=== PATIENT | female | born 1990 | race Caucasian/White ===

== ENCOUNTER 2019-10-24 06:05 | Inpatient (IN) | payer BC, SELFPAY ==
[2019-10-24] VITALS (63 sets, daily range): BP systolic 113–153; BP diastolic 43–90; PULSE 55–166; RESP 18; TEMP 36.5–37.2; O2SAT 97–100; BMI 37.4
--- NOTE | 2019-10-24 06:31 | PM.IMHP ---
H&P: HPI History of Present Illness Chief complaint: induction of labor Narrative: Ashleigh Sanabria is a 29 year old female para 4 para 3 with last menstrual period was 01/04/2019/ EDC of 10/31/2019/presents at 39 weeks gestation for induction of labor. has been uncomplicated. Has favorable cervix. Review of Systems Review of Systems: All systems reviewed & are unremarkable except as noted in HPI and below PMFSH Family History Family History Sibling Diabetes mellitus Grandparent Heart disease Social History Social History Substance use: never Spiritual care concerns: No Meds Home Medications and Allergies Home Medications Medication Instructions Recorded Confirmed Type PNV cmb#95-ferrous fumarate-FA 1 tablet PO DAILY 10/01/19 10/01/19 History [] ferrous sulfate 325 mg PO DAILY 10/01/19 10/01/19 History fluoxetine 40 mg PO DAILY 10/01/19 10/01/19 History Allergies Allergy/AdvReac Type Severity Reaction Status Date / Time No Known Allergies Allergy Verified 01/01/18 12:30 Vital Signs Vital Signs - 24 hr 10/24/19 06:22 Pulse Rate 71 Blood Pressure 138/85 Exam Const: General: no acute distress Eyes: General: appearance normal, both eyes and all related structures Neck: Neck: supple and no JVD Thyroid: thyroid normal Resp: Effort & Inspection: normal respiratory effort Auscultation: clear to auscultation bilaterally Cardio: Rate: regular rate Rhythm: regular rhythm GI: Inspection: non-distended GI Palp: Yes Soft to palpation, No Tenderness to palpation present (GI) and No Guarding due to palpation present (GI) Auscultation: normal bowel sounds : External Female Exam: normal external appearance Speculum Exam - Cervix: Cervical os open (cx 3/60/-2 fhts ok) Skin: General skin exam: no rashes or lesions noted Extrem: General: normal to inspection and no edema Psych: Mental Status: mental status grossly normal Affect: normal affect Assessment and Plan Additional Plan Impression: Term with favorable cervix Plan,: Medical induction labor/spontaneous vaginal delivery is expected/ she has an epidural candidate
--- NOTE | 2019-10-24 06:35 | LDADM ---
This patient, Ashleigh Sanabria, was admitted to Labor/Delivery/Recovery 107 on 10/24/19 at 06:05. Plans for labor, pain management and were discussed with patient. Patient/family oriented to hospital policies and general routines including ID bracelet, bed and alarms, visiting hours, pain management, procedures, bathroom and other care routines, personal items, smoking policy, room service/diet and guest tray routines, security routines, call light, and visiting hours. Patient/Family are encouraged to report perceived risks to care and to ask questions if they do not understand what they are told or what they should do. See OBIX for further documentation.
[2019-10-24 06:56] LABS: Basophils Percent Auto 0.3 % (0.2-1.2); Eosinophils Absolute Auto 0.1 K/mm3 (0-0.3); Eosinophils Percent Auto 0.7 % (0-4.4); Hematocrit 36.6 % (37.0-47.0); Hemoglobin 11.8 g/dL (12.0-15.0); Immature Granulocyte Absolute 0.09 K/mm3 (0.00-0.031); Lymphocytes Absolute Auto 1.89 K/mm3 (0.9-3.2); Lymphocytes Percent Auto 20.1 % (18.3-44.2); Mean Corpuscular HGB Conc 32.2 g/dl (32-36); Mean Corpuscular Hemoglobin 28.3 pg (26-34); Mean Corpuscular Volume 87.8 fl (80-100); Mean Platelet Volume 12.2 fl (7.4-10.4); Monocytes Absolute Auto 0.6 K/mm3 (0.1-0.6); Monocytes Percent Auto 6.4 % (2.6-8.5); Neutrophils Absolute Auto 6.7 K/mm3 (1.3-6.7); Neutrophils Percent Auto 71.5 % (45.5-73.1); Platelet Count Result 116 k/mm3 (150-375); Red Blood Count 4.17 M/mm3 (4.2-5.4); Red Cell Distribution Width 15.9 % (11.5-14.5); White Blood Count 9.4 K/mm3 (4.5-10.0)
[2019-10-24] MEDS: LACTATED RINGERS 1,000 ML 125 ML IV CONT ×2 (07:19→09:05)
[2019-10-24] MEDS: OXYTOCIN 30 UNITS/NS 500 ML 30 UNITS/500 ML BAG IV CONT (07:19)
--- NOTE | 2019-10-24 08:56 | WPDANESEPPF ---
Anes - Initial Pre Proc Eval Date/Time: 10/24/19 08:56 Surgeon: Socrates Jurado MD Pre Op Diagnosis: induction of labor Patient Data Age: 29 Gender: F Height: 1.7 m Weight: 108.5 kg Last Vital Signs Pulse 61 10/24/19 08:31 BP 140/90 10/24/19 08:31 Allergies Allergy/AdvReac Type Severity Reaction Status Date / Time No Known Allergies Allergy Verified 01/01/18 12:30 Home Medications Medication Instructions Recorded Confirmed Type PNV cmb#95-ferrous fumarate-FA 1 tablet PO DAILY 10/01/19 10/01/19 History [] ferrous sulfate 325 mg PO DAILY 10/01/19 10/01/19 History fluoxetine 40 mg PO DAILY 10/01/19 10/01/19 History Laboratory Tests 10/24/19 10/24/19 10/24/19 06:48 06:48 06:48 WBC 9.4 K/mm3 K/mm3 (4.5-10.0) RBC 4.17 M/mm3 L M/mm3 (4.2-5.4) Hgb 11.8 g/dL L g/dL (12.0-15.0) Hct 36.6 % L % (37.0-47.0) MCV 87.8 fl fl (80-100) MCH 28.3 pg pg (26-34) MCHC 32.2 g/dl g/dl (32-36) RDW 15.9 % H % (11.5-14.5) Plt Count 116 k/mm3 L k/mm3 (150-375) MPV 12.2 fl H fl (7.4-10.4) Immature Gran % (Auto) 1.0 % H % (0-0.5) Neut % (Auto) 71.5 % % (45.5-73.1) Lymph % (Auto) 20.1 % % (18.3-44.2) [place] % (Auto) 6.4 % % (2.6-8.5) Eos % (Auto) 0.7 % % (0-4.4) Baso % (Auto) 0.3 % % (0.2-1.2) Lymph # (Auto) 1.89 K/mm3 K/mm3 (0.9-3.2) [place] # (Auto) 0.6 K/mm3 K/mm3 (0.1-0.6) Eos # (Auto) 0.1 K/mm3 K/mm3 (0-0.3) Baso # (Auto) 0.0 K/mm3 K/mm3 (0.0-0.1) Abs Immat Gran (auto) 0.09 K/mm3 H K/mm3 (0.00-0.031) Absolute Neuts (auto) 6.7 K/mm3 K/mm3 (1.3-6.7) Absolute Nucleated RBC 0.0 K/mm3 K/mm3 (0.0-0.012) Nucleated RBC % 0.0 % % (0.0-0.2) RPR Pending Blood Type A Positive Antibody Screen Negative Patient hx anesthesia problems: none Family hx anesthesia problems: none [facility] Family History Family History Sibling Diabetes mellitus Grandparent Heart disease Social History Social History Substance use: never Spiritual care concerns: No Anes - Eval Final PreProcedure Day of Procedure 10/24/19 08:56 Patient weight: overweight Heart: regular rate and rhythm Lungs: clear to auscultation and normal air movement Airway: Mallampati scale class II Neurological: alert and oriented Last oral intake: >/= 8 hours ASA classification: II Emergent: no Anesthetic plan: proceed Anesthesia type and monitoring: regional epidural Informed Consent: The patient's anesthetic plan and its attendant risks and benefits were discussed with the patient/family/POA. Questions were solicited and answers provided to the satisfaction of the patient/family/POA.
--- NOTE | 2019-10-24 11:09 | PM.OBPRVD ---
OB - Delivery Note Procedure Delivery date: 10/24/19 Intrapartal events: None Induction method: AROM Delivery augmentation: pitocin Delivery monitor: external FHT Route of delivery: Episiotomy description: None Laceration description: None Specimen: No Estimated blood loss (mL): 57 Anesthesia type: Epidural Disposition: floor Baby Date of : 10/24/19 Time of : 11:02 Weeks of gestation at delivery: 39 Infant gender: Female presentation: vertex position: Right Occiput Anterior Placenta delivery description: Spontaneous cord vessel description: 3 Vessels score one minute: 8 score five minutes: 9
--- NOTE | 2019-10-24 11:10 | PM.DS ---
DS: Admitting Diagnosis Admitting Diagnosis Admitting Diagnosis: term DS: Summary Time Spent with Patient Time attestation: Total time spent providing and/or coordinating discharge services: Exam Const: General: no acute distress Eyes: General: appearance normal, both eyes and all related structures Neck: Neck: supple and no JVD Thyroid: thyroid normal Resp: Effort & Inspection: normal respiratory effort Auscultation: clear to auscultation bilaterally Cardio: Rate: regular rate Rhythm: regular rhythm GI: Inspection: non-distended GI Palp: Yes Soft to palpation, No Tenderness to palpation present (GI) and No Guarding due to palpation present (GI) Auscultation: normal bowel sounds : General: Yes bladder normal to palpation External Female Exam: normal external appearance Speculum Exam - Vagina: normal vaginal discharge and No vaginal bleeding Speculum Exam - Cervix: nontender Bimanual exam- vagina & uterus: bladder normal to palpation and No Cervical tenderness present OB/external & speculum: No vaginal bleeding Skin: General skin exam: no rashes or lesions noted Extrem: General: normal to inspection and no edema Psych: Mental Status: mental status grossly normal Affect: normal affect DS: Data Data Completed and Pending Labs on day of discharge: Labs from last 24 hours 10/24/19 10/24/19 10/24/19 06:48 06:48 06:48 WBC 9.4 RBC 4.17 L Hgb 11.8 L Hct 36.6 L MCV 87.8 MCH 28.3 MCHC 32.2 RDW 15.9 H Plt Count 116 L MPV 12.2 H Immature Gran % (Auto) 1.0 H Neut % (Auto) 71.5 Lymph % (Auto) 20.1 [place] % (Auto) 6.4 Eos % (Auto) 0.7 Baso % (Auto) 0.3 Lymph # (Auto) 1.89 [place] # (Auto) 0.6 Eos # (Auto) 0.1 Baso # (Auto) 0.0 Abs Immat Gran (auto) 0.09 H Absolute Neuts (auto) 6.7 Absolute Nucleated RBC 0.0 Nucleated RBC % 0.0 RPR Pending Blood Type A Positive Antibody Screen Negative Discharge Plan Discharge Attending physician on discharge: Faustino Reyna Discharging Clinician: Faustino Reyna Patient Disposition: Home, Self-Care Activity: may shower, no straining, may drive after 2 weeks and pelvic rest Diet: heart healthy Wound Care Instructions: follow printed instructions Patient Instructions: Antibiotic Form Stand Alone Forms: General Discharge Information Follow-up/Referrals: Faustino Reyna MD [Physician] - Discharge Medications: Continued fluoxetine 40 mg Capsule 40 mg PO DAILY RF: 0 ferrous sulfate 325 mg (65 mg iron) Tablet 325 mg PO DAILY RF: 0 PNV cmb#95-ferrous fumarate-FA [] 28 mg iron- 800 mcg Tablet 1 tablet PO DAILY RF: 0 Date of admission: 10/24/19 06:05 Primary Care Provider: Bri,Eli Admitting Provider: Socrates Jurado Attending physician on admission: Socrates Jurado
[2019-10-24] MEDS: OXYTOCIN 30 UNITS/NS 500 ML 30 UNITS/500 ML BAG 125 UNITS IV CONT (11:34)
[2019-10-24] MEDS: ACETAMINOPHEN 325 MG TABLET 650 MG PO (12:54)
--- NOTE | 2019-10-24 13:44 | PC.NURSE ---
Patient transferred to post room # 285 via ( ). Support person present. Oriented to unit, room, information board, rooming in, admission packet and security measures. Patient verbalizes understanding.
[2019-10-24] MEDS: IBUPROFEN 600 MG TABLET PO (16:20)
[2019-10-25] MEDS: IBUPROFEN 600 MG TABLET PO ×2 (03:21→11:44)
[2019-10-25] MEDS: ACETAMINOPHEN 325 MG TABLET 650 MG PO ×2 (03:22→11:45)
[2019-10-25 05:11] LABS: Hematocrit 31.9 % (37.0-47.0); Hemoglobin 10.5 g/dL (12.0-15.0)
--- NOTE | 2019-10-25 06:18 | P.PNOB_ITS ---
OB - PN: Subj Subjective Date/time seen: 10/25/19 06:18 Patient comments: no complaints and pain well controlled baby status: doing well and nursing well OB - PN: Obj Data Labs CBC & Chem 7: 10/25/19 04:48 Labs: Laboratory Results - last 24 hr 10/24/19 10/24/19 10/25/19 06:48 06:48 04:48 WBC 9.4 RBC 4.17 L Hgb 11.8 L 10.5 L Hct 36.6 L 31.9 L MCV 87.8 MCH 28.3 MCHC 32.2 RDW 15.9 H Plt Count 116 L MPV 12.2 H Immature Gran % (Auto) 1.0 H Neut % (Auto) 71.5 Lymph % (Auto) 20.1 [place] % (Auto) 6.4 Eos % (Auto) 0.7 Baso % (Auto) 0.3 Lymph # (Auto) 1.89 [place] # (Auto) 0.6 Eos # (Auto) 0.1 Baso # (Auto) 0.0 Abs Immat Gran (auto) 0.09 H Absolute Neuts (auto) 6.7 Absolute Nucleated RBC 0.0 Nucleated RBC % 0.0 Blood Type A Positive Antibody Screen Negative OB - PN A/P Plan day: 1 Plan: routine care, discharge home and follow up 6 weeks Time Spent With Patient Time: Total time spent is greater than 50% in coordination of care (as documented) at patient's floor/unit and/or counseling patient: Time with patient: less than 15 minutes Review of Systems Review of Systems: All systems reviewed & are unremarkable except as noted in HPI and below Exam Const: General: no acute distress Eyes: General: appearance normal, both eyes and all related structures Neck: Neck: supple and no JVD Thyroid: thyroid normal Resp: Effort & Inspection: normal respiratory effort Auscultation: clear to auscultation bilaterally Cardio: Rate: regular rate Rhythm: regular rhythm GI: Inspection: non-distended GI Palp: Yes Soft to palpation, No Tenderness to palpation present (GI) and No Guarding due to palpation present (GI) Auscultation: normal bowel sounds : General: Yes bladder normal to palpation External Female Exam: normal external appearance Speculum Exam - Vagina: normal vaginal discharge and No vaginal bleeding Speculum Exam - Cervix: nontender Bimanual exam- vagina & uterus: bladder normal to palpation and No Cervical tenderness present OB/external & speculum: No vaginal bleeding Skin: General skin exam: no rashes or lesions noted Extrem: General: normal to inspection and no edema Psych: Mental Status: mental status grossly normal Affect: normal affect
[2019-10-25 07:55] VITALS: BP 119/79; PULSE 67; RESP 16; TEMP 36.5; O2SAT 100
[2019-10-25] MEDS: MULTIVIT/MIN/PREN/FOL AC/IRON TABLET 1 TAB PO (08:06)
[2019-10-25] MEDS: TETANUS,DIPHTHERIA,AC PERTUSSIS ADULT (0.5 ML) BOOSTRIX IM (08:07)
[2019-10-25 10:52] LABS: Rapid Plasma Reagin Non-Reactive (NonReactive)
--- NOTE | 2019-10-25 11:47 | PC.NURSE ---
Patient was given the opportunity to view the discharge video Mother & Baby Care, The First Two Weeks and to ask questions. Patient declined viewing the video and has been given the mother/baby guide for home reference.
[2019-10-28 09:54] VITALS: BP 124/86; PULSE 59; RESP 16; TEMP 37.2; O2SAT 98
== END 2019-10-25 13:49 | disposition home or self-care (01) | DRG 807 ==
LOC: ANHOB2 10-25 13:01 → ANHLDR 10-28 17:04 → ANHOB2 10-31 11:40
PROVIDERS: Admitting Provider Obstetrics & Gynecology; PCP Physician Assistant; Visit Provider Obstetrics & Gynecology
DX: O80 Encounter for full-term uncomplicated delivery (principal); Z37.0 Single live birth; Z3A.39 39 weeks gestation of pregnancy
CPT/HCPCS: 36415; 85014; 85018; 85025; 86592; 86850; 86900; 86901; 90715; 99199; A9270; J2590; J2795; J7120

== ENCOUNTER 2019-10-31 17:04 | Outpatient (CLI) | payer BC, SELFPAY ==
[2019-10-31 17:15] VITALS: BP 146/88; PULSE 84
--- NOTE | 2019-10-31 17:37 | PC.NURSE ---
Dr Elziondo notified of Adm c/o headache. Have Anesthesia evaluate patient for headache. [facility] labs.
--- NOTE | 2019-10-31 17:40 | PC.NURSE ---
Anesthesia notified of need for consult for headache. Will be over to evaluate.
[2019-10-31 17:45] VITALS: BP 139/91; RESP 18
--- NOTE | 2019-10-31 17:45 | PC.NURSE ---
Kurt Puga here to assess patient, feels that she does not need a blood patch at this time.
[2019-10-31 18:04] LABS: Basophils Absolute Auto 0.1 K/mm3 (0.0-0.1); Basophils Percent Auto 0.7 % (0.2-1.2); Eosinophils Absolute Auto 0.1 K/mm3 (0-0.3); Eosinophils Percent Auto 1.3 % (0-4.4); Immature Granulocyte Absolute 0.06 K/mm3 (0.00-0.031); Immature Granulocyte Percent A 0.7 % (0-0.5); Lymphocytes Absolute Auto 2.48 K/mm3 (0.9-3.2); Lymphocytes Percent Auto 29.7 % (18.3-44.2); Mean Corpuscular HGB Conc 32.5 g/dl (32-36); Mean Corpuscular Hemoglobin 28.4 pg (26-34); Mean Corpuscular Volume 87.5 fl (80-100); Mean Platelet Volume 11.3 fl (7.4-10.4); Monocytes Absolute Auto 0.6 K/mm3 (0.1-0.6); Monocytes Percent Auto 7.3 % (2.6-8.5); Neutrophils Percent Auto 60.3 % (45.5-73.1); Platelet Count Result 221 k/mm3 (150-375); Red Blood Count 4.57 M/mm3 (4.2-5.4); White Blood Count 8.4 K/mm3 (4.5-10.0)
[2019-10-31 18:16] LABS: Alanine Aminotransferase 26 U/L (4-35); Albumin Level 3.7 g/dL (3.5-5.1); Alkaline Phosphatase 113 U/L (38-126); Anion Gap 11.6 mmol/L (7-16); Aspartate Amino Transferase 25 U/L (14-36); Bilirubin,Total 0.2 mg/dL (0.2-1.3); Blood Urea Nitrogen 16 mg/dL (7-17); Calcium 8.6 mg/dL (8.4-10.2); Carbon Dioxide 25 mmol/L (22-30); Chloride 106 mmol/L (98-107); Estimated Glomerular Filt Rate > 60; Glucose 85 mg/dL (65-105); Potassium 3.6 mmol/L (3.4-5.0); Sodium 139 mmol/L (137-145); Uric Acid 6.9 mg/dL (2.5-7.5)
== END 2019-10-31 18:38 | disposition home or self-care (01) ==
LOC: ANHOBOP 17:11 → ANHLDR 17:13 → ANHOBPP 11-14 06:35
PROVIDERS: PCP Physician Assistant; Visit Provider Obstetrics & Gynecology
DX: O89.4 Spinal and epidural anesthesia-induced headache during the puerperium (principal)
CPT/HCPCS: 36415; 80053; 84550; 85025; 99199

== ENCOUNTER 2021-01-07 04:47 | Inpatient (IN) | payer BC, OTHER, SELFPAY ==
[2021-01-07] VITALS (102 sets, daily range): BP systolic 87–130; BP diastolic 58–80; PULSE 53–161; RESP 16–18; TEMP 36.3–37; O2SAT 80–100; BMI 37.3
--- OUTSIDE RECORDS SUMMARY | 2021-01-07 05:54 | XMS_ITS ---
:1990 Author Care Team Providers Name Role Phone CECE FERNANDES MD C.O.D. Clerk [phone] Allergies Code Code System Name Reaction Severity Status Onset NKDA ? Medications Name Status Start Date Stop Date ? ? Afluria Quad [id number] (PF) 60 mcg (15 mcg x 4)/0.5 mL IM syring e Completed ? 07/24/2018 ADM 0.5ML IM UTD albuterol sulfate HFA 90 mcg/actuation aerosol inhaler Active ? Not available INHALE 2 PUFFS PO Q 6 H PRF ASTHMA amoxicillin 875 mg tablet Completed ? 2016 TK 1 T PO Q 12 H amoxicillin 875 mg-potassium clavulanate 125 mg tablet Completed ? 05/15/2020 TK 1 T PO Q 12 H azithromycin 250 mg tablet Completed ? 07/24 benzonatate 200 mg capsule Completed ? 05/15 TK 1 C PO TID PRN citalopram 20 mg tablet Completed ? 07/25/19 19 TAKE 1 TABLET EVERY DAY cyclobenzaprine 5 mg tablet Unknown ? Not available TK 1 T PO TID PRN pt states she didnt think it was helping Diclegis 10 mg-10 mg tablet,delayed release Completed ? 07/24/2018 TK 2 TO 4 TS PO QD UTD ON PATIENT HANDOUT ferrous sulfate 325 mg (65 mg iron) tablet Completed ? 05/15/2020 TK 1 T PO D Flucelvax Quad (PF) 60 mcg (15 mcg x 4)/0.5 mL IM syri nge Completed ? 05/15/2020 ADM 0.5ML IM UTD fluoxetine 20 mg tablet Completed ? 07/25/19 19 TK 1 T PO QD fluoxetine 40 mg capsule Active ? Not michelle ilable TK ONE C PO QD
[2021-01-07] MEDS: LACTATED RINGERS 1,000 ML 999 ML IV CONT ×2 (06:14→06:41)
--- NOTE | 2021-01-07 06:15 | LDADM ---
This patient, Ashleigh Sanabria, was admitted to Labor/Delivery/Recovery 105 on 01/07/21 at 04:47. Plans for labor, pain management and were discussed with patient. Patient/family oriented to hospital policies and general routines including ID bracelet, bed and alarms, visiting hours, pain management, procedures, bathroom and other care routines, personal items, smoking policy, room service/diet and guest tray routines, security routines, and visiting hours. Patient/Family are encouraged to report perceived risks to care and to ask questions if they do not understand what they are told or what they should do. See OBIX for further documentation.
[2021-01-07 06:43] LABS: Basophils Percent Auto 0.4 % (0.2-1.2); Eosinophils Absolute Auto 0.1 K/mm3 (0-0.3); Eosinophils Percent Auto 0.6 % (0-4.4); Hematocrit 35.3 % (37.0-47.0); Hemoglobin 10.9 g/dL (12.0-15.0); Immature Platelet Fraction Pct 9.9 % (0.9-11.2); Lymphocytes Absolute Auto 2.22 K/mm3 (0.9-3.2); Lymphocytes Percent Auto 21.9 % (18.3-44.2); Mean Corpuscular HGB Conc 30.9 g/dl (32-36); Mean Corpuscular Hemoglobin 26.5 pg (26-34); Mean Corpuscular Volume 85.9 fl (80-100); Mean Platelet Volume 11.8 fl (7.4-10.4); Monocytes Absolute Auto 0.8 K/mm3 (0.1-0.6); Monocytes Percent Auto 7.7 % (2.6-8.5); Neutrophils Percent Auto 68.4 % (45.5-73.1); Platelet Count Result 141 k/mm3 (150-375); Red Blood Count 4.11 M/mm3 (4.2-5.4); White Blood Count 10.2 K/mm3 (4.5-10.0)
[2021-01-07 07:06] LABS: Rapid Plasma Reagin Non-Reactive (NonReactive)
--- NOTE | 2021-01-07 08:35 | PM.IMHP ---
H&P: HPI History of Present Illness Date/Time: 01/07/21 08:35 30 y/o at 38 2/7 weeks here with contractions. Labor was diagnosed. She is now comfortable with an epidural. GBS neg. Also, she desires permanent contraception with bilateral tubal ligation. Chief Complaint: Contractions Review of Systems Review of Systems: All systems reviewed & are unremarkable except as noted in HPI and below PMFSH Past Medical History Medical History Anxiety Asthma Family History Family History Sibling Diabetes mellitus Grandparent Heart disease Social History Social History Smoking status: Never smoker Second hand tobacco smoke exposure: No Substance use: never Spiritual care concerns: No Meds Home Medications and Allergies Home Medications Medication Instructions Recorded Confirmed Type PNV cmb#95-ferrous fumarate-FA 1 tablet PO DAILY 10/01/19 01/07/21 History [] fluoxetine 40 mg PO DAILY 10/01/19 01/07/21 History Allergies Allergy/AdvReac Type Severity Reaction Status Date / Time No Known Allergies Allergy Verified 01/01/18 12:30 Vital Signs Vital Signs - 24 hr 01/07/21 06:41 01/07/21 06:43 01/07/21 06:46 Temperature Pulse Rate 75 73 77 Blood Pressure 127/79 125/79 123/77 Pulse Oximetry 01/07/21 06:48 01/07/21 06:51 01/07/21 06:53 Temperature Pulse Rate 67 76 71 Blood Pressure 123/78 117/72 118/79 Pulse Oximetry 01/07/21 06:56 01/07/21 06:57 01/07/21 06:58 Temperature 36.3 C L Pulse Rate 71 87 Blood Pressure 115/79 120/65 Pulse Oximetry 100 01/07/21 07:01 01/07/21 07:02 01/07/21 07:04 Temperature Pulse Rate 74 76 Blood Pressure 119/74 119/64 Pulse Oximetry 100 01/07/21 07:07 01/07/21 07:08 01/07/21 07:09 Temperature Pulse Rate 91 72 81 Blood Pressure 87/63 L 126/66 124/77 Pulse Oximetry 100 01/07/21 07:11 01/07/21 07:12 01/07/21 07:13 Temperature Pulse Rate 75 81 Blood Pressure 112/74 115/73 Pulse Oximetry 100 01/07/21 07:16 01/07/21 07:17 01/07/21 07:18 Temperature Pulse Rate 77 76 Blood Pressure 115/76 122/79 Pulse Oximetry 100 01/07/21 07:21 01/07/21 07:22 01/07/21 07:23 Temperature Pulse Rate 74 79 Blood Pressure 114/68 112/67 Pulse Oximetry 100 01/07/21 07:26 01/07/21 07:27 01/07/21 07:28 Temperature Pulse Rate 72 70 Blood Pressure 116/70 114/74 Pulse Oximetry 100 01/07/21 07:31 01/07/21 07:32 01/07/21 07:33 Temperature Pulse Rate 85 78 Blood Pressure 115/71 111/68 Pulse Oximetry 100 01/07/21 07:36 01/07/21 07:37 01/07/21 07:38 Temperature Pulse Rate 77 78 Blood Pressure 105/68 108/68 Pulse Oximetry 100 01/07/21 07:40 01/07/21 07:41 01/07/21 07:43 Temperature Pulse Rate 66 73 Blood Pressure 117/75 115/67 Pulse Oximetry 100 01/07/21 07:45 01/07/21 07:46 01/07/21 07:48 Temperature Pulse Rate 66 79 Blood Pressure 90/76 L 104/71 Pulse Oximetry 98 01/07/21 07:50 01/07/21 07:55 01/07/21 08:00 Temperature Pulse Rate Blood Pressure Pulse Oximetry 99 99 100 01/07/21 08:01 01/07/21 08:05 01/07/21 08:10 Temperature Pulse Rate 84 Blood Pressure 112/58 L Pulse Oximetry 99 100 01/07/21 08:15 01/07/21 08:16 01/07/21 08:20 Temperature Pulse Rate 72 Blood Pressure 104/68 Pulse Oximetry 97 99 01/07/21 08:25 01/07/21 08:30 01/07/21 08:32 Temperature Pulse Rate 76 Blood Pressure 105/65 Pulse Oximetry 98 99 01/07/21 08:35 Temperature Pulse Rate Blood Pressure Pulse Oximetry 100 Exam Const: Orientation/consciousness: patient oriented x3 Other: Well-developed, well-nourished female in no acute distress. Neck: Thyroid: thyroid normal Lymphatic: no lymphade
[2021-01-07] MEDS: LACTATED RINGERS 1,000 ML 125 ML IV CONT (08:57)
[2021-01-07] MEDS: OXYTOCIN 30 UNITS/NS 500 ML 30 UNITS/500 ML BAG 999 UNITS IV CONT (09:52)
--- NOTE | 2021-01-07 10:01 | PM.OBPRVD ---
OB - Delivery Note Procedure Delivery date: 01/07/21 Procedure: Induction method: none Delivery monitor: external FHT and external uterine Route of delivery: Laceration Description: None Specimen: Yes (cord blood) Quantitative Blood Loss (ml): 85 Anesthesia type: Epidural Disposition: PACU Complications: None Narrative: 30 y/o at 38 2/7 weeks gestation who presented to the hospital with complaint of contractions. Labor was diagnosed. She received an epidural for pain control. Amniotomy was performed with return of clear fluid. Her labor progressed and her cervix dilated completely. She pushed with good effort and delivered the infant's head to the perineum, followed by the body. The nose and mouth were bulb suctioned. After a delay, the cord was clamped and cut. The was handed off the field. Cord blood was collected. The placenta delivered spontaneously and was grossly normal in appearance. The usual 3 vessel cord was noted. The perineum was intact. Needle and instrument counts were correct. The patient was taken to recovery room in stable condition. The went to the nursery in stable condition. I was present and scrubbed for the entire delivery. [place] Baby Date of : 01/07/21 Time of : 09:48 Weeks of gestation at delivery: 38 gender: Female Weight (pounds): 8 presentation: vertex position: Right Occiput Anterior Placenta delivery description: Spontaneous and Normal Configuration cord vessel description: 3 Vessels and Delayed Cord Clamping score one minute: 8 score five minutes: 9
--- NOTE | 2021-01-07 10:05 | PM.OBDSVD ---
DS: Admitting Diagnosis Discharge Date 01/08/21 Admitting Diagnosis IUP at 38 2/7 weeks Labor DS: Discharge Diagnosis Discharge Diagnosis (1) (normal spontaneous vaginal delivery): Code(s): O80 - Encounter for full-term uncomplicated delivery Status: Acute (2) Unwanted fertility: Code(s): Z30.09 - Encounter for other general counseling and advice on contraception Status: Acute OB - DS: Summary OB Procedures : None OB Procedures Intrapartum: Spontaneous Vag Delivery OB Procedures: : None DS: Data Data Completed and Pending Labs on day of discharge: Labs from last 24 hours 01/07/21 01/07/21 01/07/21 06:16 06:16 06:16 WBC 10.2 H RBC 4.11 L Hgb 10.9 L Hct 35.3 L MCV 85.9 MCH 26.5 MCHC 30.9 L RDW 14.0 Plt Count 141 L MPV 11.8 H Immature Gran % (Auto) 1.0 H Neut % (Auto) 68.4 Lymph % (Auto) 21.9 [place] % (Auto) 7.7 Eos % (Auto) 0.6 Baso % (Auto) 0.4 Lymph # (Auto) 2.22 [place] # (Auto) 0.8 H Eos # (Auto) 0.1 Baso # (Auto) 0.0 Abs Immat Gran (auto) 0.10 H Absolute Neuts (auto) 7.0 H Absolute Nucleated RBC 0.0 Nucleated RBC % 0.0 % Immature Plt Fraction 9.9 RPR Non-reactive Blood Type A Positive Antibody Screen Negative Discharge Plan Discharge Attending physician on discharge: Socrates Jurado Discharging Clinician: Socrates Jurado Patient Disposition: Home, Self-Care Activity: as tolerated and pelvic rest Diet: regular Wound Care Instructions: incision open to air Discharge Instructions: Call or return if temperature above 100.4? F, increased abdominal pain, increased vaginal bleeding or any new problems. Education: Mom and Baby Guide Given to: Mother Follow-Up: Call your delivering provider's office for an appointment to be seen in: 6 Weeks Mom and baby should come to the [facility] for the follow-up appointment. Appointment Date/Time: January 09, 2021 at 9:00 am What to expect at your follow-up visit: Physical Assessment Call [phone] if you are unable to keep your appointment time. BREAST CARE: * Wear a snug supportive bra. * For engorgement discomfort: Bottle Feeding: * May apply ice packs PERINEAL CARE: * Until bleeding stops, use your jason bottle after urinating * Change your pad frequently throughout the day * No tub baths until seen by your physician - You may shower ACTIVITY: * Rest as much as possible. * Do not exercise or lift anything heavier than your baby (such as laundry or other children.) * Avoid stairs or driving as much as possible. * Do not put anything into the vagina. No douching, tampons, or sexual activity until seen by physician. NOTIFY PHYSICIAN IF YOU HAVE ANY QUESTIONS OR IF ANY OF THE FOLLOWING SYMPTOMS OCCUR: * If your stitches become red, swollen, or more painful than what you have experienced in the hospital. * If your vaginal bleeding becomes foul smelling. * If your vaginal bleeding becomes more heavy than a period or if your bleeding changes from pink to bright red. However, you may pass an occasional walnut-sized clot once or twice for the first week . * If you experience a sharp, shooting pain in you calves. * If you discover a hard, reddened area on your breast or if you experience flu-like symptoms. DIET: * Eat regular, well-balanced meals. * Drink plenty of fluids daily. Stand Alone Forms: General Discharge Information Follow-up/Referrals: Socrates Jurado MD [Physician] - 6 Weeks Discharge Medications: New ibuprofen 600 mg tablet 600 mg PO Q6H PRN (Reason: cramps) Qty: 30 RF: 0 hydrocodone-acetaminophen 5-325 mg tablet 1 - 2 tablet PO Q6H PRN (Reason: pain) Qty: 30 RF: 0 Continued fluoxetine 40 mg Capsule 40 mg PO DAILY RF: 0 PNV cmb#95-ferrous fumarate-FA [] 28 mg iron- 800 mcg Tablet 1 tablet PO DAILY RF: 0 Date
[2021-01-07] MEDS: OXYTOCIN 30 UNITS/NS 500 ML 30 UNITS/500 ML BAG 125 UNITS IV CONT (10:19)
[2021-01-07] MEDS: IBUPROFEN 600 MG TABLET PO ×2 (11:50→21:59)
--- NOTE | 2021-01-07 19:21 | PC.NURSE ---
expedition supervisor Criselda notified that this patient has canceled her tubal surgery tomorrow and that the doctor is already aware.
--- NOTE | 2021-01-07 19:30 | PC.NURSE ---
1330 Pt admitted to room 292 per wheelchair from labor and delivery after spontaneous vaginal delivery of viable female infant at [address] Jurado. Mother is a and is choosing to bottle feed infant. /FOB present; they were oriented to room, staffing and procedures; admission folder reviewed. Pt's VSS and assessment WNL.
--- NOTE | 2021-01-07 19:33 | PC.NURSE ---
Epidural catheter removed at 1932.
[2021-01-07] MEDS: FLUoxetine HCL 20 MG CAPSULE 40 MG PO (21:34)
[2021-01-08 04:00] VITALS: BP 112/67; PULSE 70; RESP 16; TEMP 36.6; O2SAT 99
[2021-01-08] MEDS: IBUPROFEN 600 MG TABLET PO (04:24)
[2021-01-08 04:58] LABS: Hemoglobin 10.6 g/dL (12.0-15.0)
[2021-01-08 07:40] VITALS: BP 118/71; PULSE 72; RESP 18; TEMP 36.6; O2SAT 99
[2021-01-11 09:25] VITALS: BP 132/71; PULSE 69; RESP 20; TEMP 36.9; O2SAT 100
== END 2021-01-08 12:00 | disposition home or self-care (01) | DRG 807 ==
LOC: ANHLDR 11:52 → ANHOB2 01-08 06:27 → ANHLDR 01-08 15:13 → ANHOB2 01-08 15:13
PROVIDERS: Admitting Provider Obstetrics & Gynecology; PCP Physician Assistant; Visit Provider Student in an Organized Health Care Education/Training Program
DX: O99.344 Other mental disorders complicating childbirth (principal); Z37.0 Single live birth; Z3A.38 38 weeks gestation of pregnancy; Z23 Encounter for immunization; F41.9 Anxiety disorder, unspecified; O99.52 Diseases of the respiratory system complicating childbirth; J45.909 Unspecified asthma, uncomplicated
CPT/HCPCS: 36415; 85014; 85018; 85025; 85055; 86592; 86850; 86900; 86901; 90471; 90653; A9270; G0008; J2590; J2795; J7120

== ENCOUNTER 2021-03-10 01:45 | Day surgery (SDC) | payer BC, OTHER, SELFPAY ==
[2021-02-24 12:28] VITALS: BMI 33.8
--- NOTE | 2021-02-24 12:36 | PC.NURSE ---
Report to the Outpatient Waiting Room, entrance under the green pavilion located off [facility], at time 1300 on date 03/10/21. OR Time: 1500. - You and your visitor will be asked a series of questions to screen for COVID 19 for your protection. - A mask is required within the hospital. - Only one visitor is allowed at this time. Patient visitors will be guided where to wait when not with patient. Preoperative COVID Testing Requirements: No COVID Test needed if: (proof is required; if not received patient will have Rapid Test prior to entry) - Patient has received COVID Vaccine at least 14 days prior to procedure date or - Patient has positive COVID test result within last 90 days of surgery date. COVID Test needed if above criteria is not met If not COVID vaccinated a COVID test must be conducted within 72 hours of surgery and patient is asked to isolate self from time of testing until procedure. You will go to the [employer] [facility] for your COVID testing. The [employer] [facility] is located at the corner of [address] [facility]. You will only be called if COVID results are positive and your surgeon may reschedule your elective surgery date. Patients may have clear liquids (water, carbonated beverages, clear teas, apple juice) until 3 hours prior to surgery with a maximum of 20 ounces. - No food from midnight until time of surgery - Infants may have breast milk until 4 hours before surgery, infant formula 6 hours prior to surgery. - Children will be allowed to drink immediately following surgery. If applicable, please bring a bottle or sippy cup to assist with drinking. Juice, water, soda, and popsicles are readily available. For infants on formula, please bring formula the day of surgery. Pacifiers are allowed. Take the following medications with a SIP of water the morning of surgery: FLUOXETINE Medications to discontinue per physician: VITAMINS/SUPPLEMENTS Date to take last dose: 03/06/21 Please no make-up, nail maltese, hairspray, perfume, deodorant, or body powder the day of surgery. No jewelry (including any body piercings) or valuables the day of surgery, leave them at home. Please take a shower or bath the night before, or the morning of, surgery with an antibacterial soap. Wear comfortable, loose fitting clothing. Children are encouraged to wear pajamas. - Jewelry must be removed prior to entering the operating room. Rings and piercings that are not removed may be cut off. - The hospital will not accept responsibility for valuables. - Please leave all valuables, including medications, at home the day of surgery. If you are going home after surgery, a licensed straddle truck driver must drive you home. - NO public transportation without another adult. - We recommend that an adult stay with you for 24 hours following discharge. - We also recommend that you do not drive, make important decision, drink alcoholic beverages, or take any drugs that were not prescribed by your health care provider for at least 24 hours after your discharge time. For Pediatric surgeries, we recommend two adults accompany the child home (only one inside the building at this time). Follow any additional instructions given to you from your surgeon. Telephone instructions given to TRAVIS MCCAULEY and asked if any additional questions and then verbalized understanding. Patient advised to call surgeon office or pre surgery nurse liaison [phone] if any additional questions.
[2021-03-10] VITALS (16 sets, daily range): BP systolic 107–137; BP diastolic 67–91; PULSE 61–81; RESP 12–20; TEMP 36.2; O2SAT 95–100
[2021-03-10] MEDS: ACETAMINOPHEN 500 MG TABLET 1000 MG PO (10:46)
[2021-03-10] MEDS: LACTATED RINGERS 1,000 ML 30 ML IV CONT ×3 (10:50→15:30)
[2021-03-10] MEDS: KETOROLAC 15 MG/ML VIAL (*BKC) IV PUSH ×2 (10:55→13:46)
--- NOTE | 2021-03-10 10:59 | P.PNAN_ITS ---
Anes - Initial Pre Proc Eval Procedure: Operation Date: 03/10/21 15:00 Proposed Procedures p Laparoscopic Bilateral Tubal Sterilization with Fallopian Rings, - Socrates Jurado MD s Hysteroscopy, Dilation and Curettage with Nga Endometrial Ablation - Socrates Jurado MD Date/Time: 03/10/21 10:59 Surgeon: Socrates Jurado MD Pre Op Diagnosis: irregular bleeding, desires sterilization Patient Data Age: 30 Gender: F Height: 1.69 m Weight: 96.62 kg Allergies Allergy/AdvReac Type Severity Reaction Status Date / Time No Known Allergies Allergy Verified 03/10/21 10:45 Home Medications Medication Instructions Recorded Confirmed Type PNV cmb#95-ferrous fumarate-FA 1 tablet PO DAILY 10/01/19 03/10/21 History [] fluoxetine 40 mg PO DAILY 10/01/19 03/10/21 History cetirizine 10 mg PO DAILY 02/24/21 03/10/21 History Patient hx anesthesia problems: none Family hx anesthesia problems: none Results Review: All pre-operative results and documents have been reviewed as part of the pre-operative evaluation. [facility] Past Medical History Medical History Anxiety Asthma Family History Family History Sibling Diabetes mellitus Grandparent Heart disease Social History Social History Smoking status: Never smoker Second hand tobacco smoke exposure: No Alcohol intake: never Substance use: never Substance use type: does not use Living arrangements: with family Spiritual care concerns: No Anes - Eval Final PreProcedure Day of Procedure 03/10/21 10:59 Patient weight: obese Heart: regular rate and rhythm Lungs: clear to auscultation Airway: Mallampati scale class II Neurological: alert and oriented Last oral intake: >/= 8 hours ASA classification: II Emergent: no Anesthetic plan: proceed Anesthesia type and monitoring: general ETT and standard monitoring Results Review: All pre-operative results and documents have been reviewed as part of the pre-operative evaluation. Informed Consent: The patient's anesthetic plan and its attendant risks and benefits were discussed with the patient/family/POA. Questions were solicited and answers provided to the satisfaction of the patient/family/POA.
--- NOTE | 2021-03-10 12:13 | PM.IMHP ---
H&P: HPI History of Present Illness Date/Time: 03/10/21 12:13 30 y/o with heavy menses. She also desires permanent contraception. Chief Complaint: Here for surgery Review of Systems Review of Systems: All systems reviewed & are unremarkable except as noted in HPI and below PMFSH Past Medical History Medical History Anxiety Asthma Family History Family History Sibling Diabetes mellitus Grandparent Heart disease Social History Social History Smoking status: Never smoker Second hand tobacco smoke exposure: No Alcohol intake: never Substance use: never Substance use type: does not use Living arrangements: with family Spiritual care concerns: No Meds Home Medications and Allergies Home Medications Medication Instructions Recorded Confirmed Type PNV cmb#95-ferrous fumarate-FA 1 tablet PO DAILY 10/01/19 03/10/21 History [] fluoxetine 40 mg PO DAILY 10/01/19 03/10/21 History cetirizine 10 mg PO DAILY 02/24/21 03/10/21 History Allergies Allergy/AdvReac Type Severity Reaction Status Date / Time No Known Allergies Allergy Verified 03/10/21 10:45 Vital Signs Vital Signs - 24 hr 03/10/21 10:45 Temperature 36.2 C L Pulse Rate 63 Respiratory Rate 20 Blood Pressure 111/68 Pulse Oximetry 99 Exam Const: Orientation/consciousness: patient oriented x3 Other: Well-developed, well-nourished female in no acute distress. Neck: Thyroid: thyroid normal Lymphatic: no lymphadenopathy noted (in neck, axilla or inguinal nodes) Resp: Effort & Inspection: normal respiratory effort Auscultation: clear to auscultation bilaterally Cardio: Rate: regular rate Rhythm: regular rhythm Heart sounds: S1 normal heart sound present and S2 normal heart sound present GI: Other: ABD: Soft, nontender, nondistended. No guarding or rebound tenderness. No hepatosplenomegaly. : General: Yes no CVA tenderness Other: External genitalia: normal female hair distribution, without lesion. Urethral meatus: no lesion, non prolapsed. Bladder: no mass, nontender Vagina: well-estrogenized, without lesion or discharge. No cystocele or rectocele. Cervix: no lesion or discharge. Uterus: small, anteverted, freely mobile, nontender Adnexa: no mass or tenderness. Anus/perineum: no lesions, nontender Back/Spine/Pelvis: Back: no CVA tenderness Skin: General skin exam: normal color and no rashes or lesions noted Neuro: General: patient oriented x3 Extrem: Other: Extremities: nontender with no edema Psych: Mental Status: mental status grossly normal Affect: normal affect Assessment and Plan Assessment and plan (1) Menometrorrhagia: Code(s): N92.1 - Excessive and frequent menstruation with irregular cycle Status: Acute Assessment and Plan: A: Menometrorrhagia, desired sterility. P: She understands there are temporary methods of contraception available to her. She understands that there are nonsurgical options as well as surgical options. She understands that tubal ligation will render her permanently sterile. She understands that there is a failure rate associated with tubal ligation, as well as an inherent ectopic gestation risk. Furthermore, she understands risks of surgery to include risks of anesthesia, risks of pain, infection, bleeding, blood products, thromboembolic phenomena and damage to adjacent structures such as bowel, bladder, ureters, blood vessels and nerves. She understands all these risks and elects to proceed with surgery. She has received the ACOG pamphlet on surgical sterilization. She elects to go ahead with hysteroscopy, dilation and sharp curettage, endometrial ablation, and bilateral tubal ligation. (2) Unwanted fertility: Code(s): Z30.09 - Encounter for other general counselin
--- NOTE | 2021-03-10 12:15 | WPDHPUPDATE1 ---
History and Physical Update Update Date/Time: 03/10/21 12:15 History and Physical has been reviewed, including an updated exam of the patient. There are NO changes in the patient's condition. Risks, benefits, and alternatives have been discussed and questions answered. Patient agrees to proceed with procedure.
--- NOTE | 2021-03-10 13:48 | WPDANESEPPF ---
Anes - Initial Pre Proc Eval Procedure: Operation Date: 03/10/21 15:00 Proposed Procedures p Laparoscopic Bilateral Tubal Sterilization with Fallopian Rings, - Socrates Jurado MD s Hysteroscopy, Dilation and Curettage with Nga Endometrial Ablation - Socrates Jurado MD Date/Time: 03/10/21 13:48 Surgeon: Socrates Jurado MD Pre Op Diagnosis: irregular bleeding, desires sterilization Patient Data Age: 30 Gender: F Height: 1.69 m Weight: 95.3 kg Last Vital Signs Temp 36.2 C L 03/10/21 10:45 Pulse 63 03/10/21 10:45 Resp 20 03/10/21 10:45 BP 111/68 03/10/21 10:45 Pulse Ox 99 03/10/21 10:45 Allergies Allergy/AdvReac Type Severity Reaction Status Date / Time No Known Allergies Allergy Verified 03/10/21 10:45 Home Medications Medication Instructions Recorded Confirmed Type PNV cmb#95-ferrous fumarate-FA 1 tablet PO DAILY 10/01/19 03/10/21 History [] fluoxetine 40 mg PO DAILY 10/01/19 03/10/21 History cetirizine 10 mg PO DAILY 02/24/21 03/10/21 History hydrocodone-acetaminophen 1 - 2 tablet PO Q6H PRN #30 tablet 03/10/21 Rx Patient hx anesthesia problems: none Family hx anesthesia problems: none Results Review: All pre-operative results and documents have been reviewed as part of the pre-operative evaluation. [facility] Past Medical History Medical History Anxiety Asthma Family History Family History Sibling Diabetes mellitus Grandparent Heart disease Social History Social History Smoking status: Never smoker Second hand tobacco smoke exposure: No Alcohol intake: never Substance use: never Substance use type: does not use Living arrangements: with family Spiritual care concerns: No Anes - Eval Final PreProcedure Day of Procedure 03/10/21 13:48 Patient weight: obese Heart: regular rate and rhythm Lungs: clear to auscultation and normal air movement Airway: Mallampati scale class II Neurological: alert and oriented Last oral intake: >/= 8 hours ASA classification: II Emergent: no Anesthetic plan: proceed Anesthesia type and monitoring: general ETT and standard monitoring Results Review: All pre-operative results and documents have been reviewed as part of the pre-operative evaluation. Informed Consent: The patient's anesthetic plan and its attendant risks and benefits were discussed with the patient/family/POA. Questions were solicited and answers provided to the satisfaction of the patient/family/POA.
--- NOTE | 2021-03-10 13:52 | W.PM.PROC2 ---
Procedure Note - Detailed Date of Procedure 03/10/21 Pre-op Diagnosis irregular bleeding, desires sterilization Post-op Diagnosis same Procedure Performed Laparoscopic bilateral tubal ligation Hysteroscopy Dilation and sharp curettage Attempted endometrial ablation Surgeon Socrates Jurado MD Anesthesia general and local (1% lidocaine) Findings Normal-appearing RUQ anatomy, normal appendix, normal-appearing uterus, tubes, ovaries, anterior and posterior cul-de-sac. Uterus sounded to a depth of 9 cm with a cervical length of 3 cm. Endometrial cavity unremarkable. Both tubal ostia seen. Description of Procedure The patient was taken to the operating room where general endotracheal anesthesia was administered. She was prepared and draped in the usual sterile fashion in dorsal lithotomy position. The bladder was drained with a red rubber catheter. A sterile speculum was placed into the vagina. The anterior lip of the cervix was grasped with a single-tooth tenaculum. The acorn uterine manipulator was placed. The speculum was withdrawn. Gloves were changed and attention was turned the abdomen. An infraumbilical skin incision was made with a scalpel. The abdomen was tented and a 5mm bladeless trocar was advanced under direct laparoscopic visualization. Pneumoperitoneum was administered using carbon dioxide gas. A survey of the pelvis and abdomen revealed the findings noted above. A second skin incision was made in the midline above the symphysis pubis and an 8mm bladeless trocar was advanced under direct laparoscopic visualization. The fallopian tube on the right side was followed out to the fimbriated end for identification. It was then grasped in the midportion with the Falope ring applicator. The Falope ring was tented applied. A good loop of tube was noted to be distal to the ring. Hemostasis was excellent. The device was reloaded and the contralateral tube was similarly identified and ligated. An excellent application was noted here as well. A total of 6mL of 1% lidocaine was infiltrated into the serosa of the proximal tubes for postoperative anesthesia. The ports were withdrawn. The gas was allowed to escape. The skin incisions were reapproximated using interrupted subcuticular sutures of 4 0 Vicryl. Dermaflex was applied externally. Attention was then redirected to the vagina. The acorn manipulator was withdrawn. Ten mL of 1% lidocaine was administered in a paracervical block. The cervix was noted already to be dilated, easily accommodating an 8 mm dilator. Hysteroscopy was performed using sterile saline as a distention medium. Findings are as noted above. Sharp curettage was then performed, and endometrial curettings were collected on a Telfa pad and passed off to be sent to pathology. Finally, the the Nga device was advanced. Unfortunately, an adequate seal was unable to be obtained due to the dilation of the cervix. A second look with the hysteroscope confirmed no evidence of uterine perforation. We tried a double-toothed tenaculum to the posterior cervix, as well as vaseline gauze. Nonetheless, an adequate seal proved elusive. The procedure was terminated. The tenacula were removed. Hemostasis was excellent. Sponge, lap, needle and instrument counts were correct. The patient was awakened and taken to the recovery room in stable condition. I was present and scrubbed through the entire procedure. Implants Falope rings x 2 Estimated Blood Loss 30 Drains No Packing No Pathology yes (Endometrial curettings) Complications None Condition stable Disposition PACU
[2021-03-10] MEDS: fentaNYL CITRATE INJ (*CRX) 100 MCG/2 ML VIAL 25 MCG IV PUSH ×6 (14:14→15:02)
[2021-03-10] MEDS: ONDANSETRON INJ 4 MG/2 ML VIAL IV PUSH (14:30)
[2021-03-10] MEDS: diphenhydrAMINE HCl INJ 50 MG/ML VIAL 25 MG IV PUSH (14:35)
[2021-03-10] MEDS: SCOPOLAMINE 1.5 MG PATCH TRANSDERM (14:36)
[2021-03-10] MEDS: MEPERIDINE HCL INJ (*CRX) 50 MG/ML AMPUL 25 MG IV PUSH ×2 (15:22→15:45)
--- NOTE | 2021-03-10 16:02 | SUR.PHASEII ---
1602- Call to Dr. Man patient is complaining of pain rated at an 8 on numeric scale to abdomen and mid back area. Patient requesting pain medication at this time. Orders obtained from Dr. Man for 1MG dilaudid IVP every 5 minutes for pain with max dosing of 5MG dilaudid.
[2021-03-10] MEDS: HYDROmorphone HCL INJ (*CRX) 1 MG/ML SYR IV PUSH ×2 (16:07→16:18)
--- NOTE | 2021-03-10 18:00 | SUR.PHASEII ---
1800- Call to Mg Puga CRNA patient experiencing nausea at this time. Requested orders for anti emetic and received orders for 10MG IVP reglan once and to start patient on D5W.
[2021-03-10] MEDS: METOCLOPRAMIDE HCL INJ 10 MG/2 ML VIAL IV PUSH (18:07)
[2021-03-10] MEDS: DEXTROSE 5% 1,000 ML 1,000 ML 100 ML IV CONT (18:10)
== END 2021-03-10 18:53 | disposition home or self-care (01) ==
PROVIDERS: PCP Physician Assistant; Visit Provider Obstetrics & Gynecology
PROC: (CPT 58671; principal; 2021-03-10 15:00)
PROC: 0U5B8ZZ Destruction of Endometrium, Via Natural or Artificial Opening Endoscopic (ICD-10-PCS; CPT 58563; 2021-03-10 15:00)
DX: N92.1 Excessive and frequent menstruation with irregular cycle (principal); Z30.2 Encounter for sterilization; F41.9 Anxiety disorder, unspecified; E66.9 Obesity, unspecified; Z68.33 Body mass index [BMI] 33.0-33.9, adult
CPT/HCPCS: 58563; 58671; 88305; A4264; A9270; J0330; J1100; J1170; J1200; J1885; J2175; J2250; J2405; J2704; J2765; J3010; J7030; J7070; J7120

== ENCOUNTER 2021-03-27 22:49 | Emergency (ER) | payer BC, OTHER, SELFPAY ==
--- NOTE | ~2021-03-27 | CT_ITS ---
EXAMINATION: CT soft tissue neck w con DATE: 03/28/2021 05:30 INDICATION: Left facial swelling post recent tooth extraction. TECHNIQUE: Computed tomography (CT) of the neck was performed with 75 mL Omnipaque-350 intravenous co ntrast. Automated exposure control and iterative reconstruction technique were employed. The dose-dragan gth product was 463.32 mGy-cm. COMPARISON: None FINDINGS: There is prominent soft tissue swelling and subcutaneous stranding at the lower left face and submand ibular region centered around the site of the extracted left first mandibular molar. There is a some phlegmonous change overlying the lateral margin of the mandible at this location without an organized -appearing drainable abscess. Some additional inflammatory stranding deep to the thickened left platy sma. The contralateral right maxillary second molar has also been extracted. No maxillofacial fractur es. There is mucosal thickening in the right maxillary sinus which appears small with thickened scler otic devine likely sequela of chronic sinusitis. The wall of the right maxillary sinus is been resecte d. Remainder of the paranasal sinuses are unremarkable. Mastoid air cells and middle ear cavities are clear. Asymmetric mild relative enlargement of still normal-sized likely reactive left submandibular lymph nodes. Visualized airway is clear. No soft tissue polyarticular inflammatory stranding in the deep spaces of the neck. The thyroid, bilateral parotid and submandibular glands are normal. Visualiz ed portions of the apices of lungs are clear. Cervical spine is unremarkable. IMPRESSION: 1. Phlegmonous change without evident organized abscess in the soft tissues overlying the site of ext raction of the left maxillary first molar with prominent surrounding cellulitis/subcutaneous edema.9. Reviewed, dictated and finalized at location H. INE ACCOUNTANT IMPRESSION: 1. Phlegmonous change without evident organized abscess in the soft tissues ove rlying the site of extraction of the left maxillary first molar with prominent surrounding cellulitis/subcutaneous edema.9.
[2021-03-27 23:17] VITALS: BP 155/90; PULSE 89; RESP 20; TEMP 36.7; O2SAT 98
[2021-03-28 02:10] VITALS: BP 137/87; PULSE 71; RESP 18; O2SAT 100
--- NOTE | 2021-03-28 02:11 | PC.NURSE ---
Pt given ice pack for facial swelling/pain.
[2021-03-28 04:38] LABS: Basophils Absolute Auto 0.1 K/mm3 (0.0-0.1); Basophils Percent Auto 0.4 % (0.2-1.2); Eosinophils Absolute Auto 0.1 K/mm3 (0-0.3); Hematocrit 35.4 % (37.0-47.0); Hemoglobin 11.3 g/dL (12.0-15.0); Immature Granulocyte Absolute 0.06 K/mm3 (0.00-0.031); Immature Granulocyte Percent A 0.5 % (0-0.5); Lymphocytes Absolute Auto 1.37 K/mm3 (0.9-3.2); Lymphocytes Percent Auto 10.4 % (18.3-44.2); Mean Corpuscular HGB Conc 31.9 g/dl (32-36); Mean Corpuscular Hemoglobin 27.7 pg (26-34); Mean Corpuscular Volume 86.8 fl (80-100); Mean Platelet Volume 11.1 fl (7.4-10.4); Monocytes Percent Auto 7.8 % (2.6-8.5); Neutrophils Absolute Auto 10.5 K/mm3 (1.3-6.7); Neutrophils Percent Auto 79.9 % (45.5-73.1); Platelet Count Result 168 k/mm3 (150-375); Red Blood Count 4.08 M/mm3 (4.2-5.4); Red Cell Distribution Width 15.6 % (11.5-14.5); White Blood Count 13.1 K/mm3 (4.5-10.0)
[2021-03-28 04:46] LABS: Anion Gap 7 mmol/L (8-16); Blood Urea Nitrogen 14 mg/dL (7-17); Calcium 9.4 mg/dL (8.4-10.2); Carbon Dioxide 29 mmol/L (22-30); Chloride 103 mmol/L (98-107); Estimated CRCL calculation 117 ml/min; Estimated Glomerular Filt Rate > 60; Glucose 108 mg/dL (65-110); Potassium 3.6 mmol/L (3.4-5.0); Sodium 139 mmol/L (137-145)
[2021-03-28 06:51] VITALS: BP 144/93; PULSE 80; RESP 14; O2SAT 99
--- NOTE | 2021-03-28 07:36 | ED.GENADULT ---
HPI - General Adult General Chief complaint: Dental/Oral Stated complaint: Left lower dental pulled and now swollen/red Time Seen by Provider: 03/28/21 03:38 History of Present Illness HPI narrative: Patient is a 30-year-old female who presents ER with facial pain and swelling. Patient underwent dental extraction and [facility] by [facility] Dr. Drake on 03/25/2021. Patient has had increased pain and swelling over the last 2 days. No fevers or chills or sweats. She has been taking [place] without relief of pain. She is able to breathe and swallow without issue. She has been doing salt water rinses. No drainage inside her mouth. Related Data Home Medications Medication Instructions Recorded Confirmed PNV cmb#95-ferrous fumarate-FA 1 tablet PO DAILY 10/01/19 03/10/21 [] fluoxetine 40 mg PO DAILY 10/01/19 03/10/21 cetirizine 10 mg PO DAILY 02/24/21 03/10/21 Allergies Allergy/AdvReac Type Severity Reaction Status Date / Time No Known Allergies Allergy Verified 03/28/21 03:24 Review of Systems Review of Systems: All systems reviewed & are unremarkable except as noted in HPI and below Constitutional: Constitutional: Denies chills and Denies fever(s) ENT: Denies dysphagia and Denies sore throat Comments: Jaw pain and swelling left greater than right with bruising on the left side. Cardiovascular: Cardiovascular: Denies chest pain and Denies radiating jaw, neck or arm pain Respiratory: Respiratory: Denies cough, Denies dyspnea and Denies wheezing Gastrointestinal: Gastrointestinal: Denies nausea and Denies vomiting [facility] Past Medical History Medical History (Updated 03/28/21 @ 07:43 by Jose Muller MD) Anxiety Asthma Surgical History Surgical History (Updated 03/28/21 @ 07:37 by Jose Muller MD) History of oral surgery Family History Family History Sibling Diabetes mellitus Grandparent Heart disease Social History Social History Smoking status: Never smoker Second hand tobacco smoke exposure: No Alcohol intake: never Substance use: never Substance use type: does not use Spiritual care concerns: No Exam Narrative: GENERAL: Uncomfortable-appearing, well-nourished, and in no acute distress. HEAD: Normocephalic, atraumatic. ENT: Mucous membranes moist. Swelling left mandibular region extending down towards the neck. No carotid bruit bilaterally. No intraoral drainage. Some swelling is affecting the lateral aspect of the lower lip. NECK: Supple. Full range of motion. CHEST: Clear to auscultation. No respiratory distress. HEART: Regular rate and rhythm. Normal peripheral pulses. ABDOMEN: Soft, nontender, nondistended. EXTREMITIES: Normal range of motion. No edema. SKIN: Warm, dry, no rash. Bruising left farooq mandibular region. No erythema or warmth. NEURO: Alert and oriented x3. Course Course Emergency Course: Discussed case with Dr. Grace who is on-call for patient's [facility] surgeon. Recommends IV Unasyn x1. He would like patient received chlorhexidine mouthwash for home. He reports she can follow-up in clinic tomorrow or Monday and she should call their office line. Would also recommend that patient receive Augmentin for 5 days outpatient. Patient has no difficulty breathing or swallowing. She is speaking full sentences. She has been given return precautions and verbalized understanding of treatment plan. Vital Signs Vital signs: Vital Signs Temperature 98.1 F 03/27/21 23:17 Pulse Rate 89 03/27/21 23:17 Respiratory Rate 20 03/27/21 23:17 Blood Pressure 155/90 H 03/27/21 23:17 Pulse Oximetry 98 03/27/21 23:17 Temperature 98.1 F 03/27/21 23:17 Pulse Rate 80 03/28/21 06:51 Respiratory Rate 14 03/28/21 06:51 Blood Pressure 144/93 H 03/28/21 06:51 Pulse Oximetry 99 03/28/21 06:51 Medical Decision M
[2021-03-28] MEDS: MORPHINE SULFATE (*CRX) 4 MG/ML INJ IV PUSH (07:57)
[2021-03-28 08:04] VITALS: BP 120/80; PULSE 82; RESP 18; O2SAT 98
[2021-03-28] MEDS: AMPICILLIN SULB 3 GM/NS 100 ML 3 GM/100 ML VIAL IVPB (08:12)
[2021-03-28 09:05] VITALS: BP 125/84; PULSE 82; RESP 16; O2SAT 98
== END 2021-03-28 09:05 | disposition home or self-care (01) ==
PROVIDERS: Emergency Provider Emergency Medicine; PCP Physician Assistant
DX: T81.49XA Infection following a procedure, other surgical site, initial encounter (principal); L03.211 Cellulitis of face; J45.909 Unspecified asthma, uncomplicated; F41.9 Anxiety disorder, unspecified
CPT/HCPCS: 36415; 70491; 80048; 85025; 96365; 96375; 99284; J0295; J2270; Q9967

== ENCOUNTER 2022-06-07 13:51 | Outpatient (CLI) | payer BC, MEDICAID, SELFPAY ==
--- NOTE | ~2022-06-07 | US_ITS ---
EXAMINATION: US pelvic complete w TV DATE: 06/07/2022 14:36 INDICATION: ABD PAIN, ABN BLEEDING TECHNIQUE: Multiple transabdominal and endovaginal sonographic images of the pelvis were obtained. COMPARISON: None. FINDINGS: Uterus: 10.9 x 6.3 x 5.5 cm. Endometrial complex measures 3 mm. Right Ovary (seen only transabdominally): 1.7 x 0.9 x 1.2 cm. Vascular flow is present. Left Ovary (seen only transabdominally): 1.6 x 0.8 x 1.1 cm. Vascular flow is present. There is no free fluid in the pelvis. IMPRESSION: Normal pelvic sonogram findings. Reviewed, dictated and finalized at location K. MOLD MACHINE OPERATOR
== END 2022-06-07 13:52 | disposition home or self-care (01) ==
PROVIDERS: PCP Physician Assistant; Visit Provider Obstetrics & Gynecology
DX: R10.84 Generalized abdominal pain (principal); N93.9 Abnormal uterine and vaginal bleeding, unspecified
CPT/HCPCS: 76830; 76856

== ENCOUNTER 2022-07-14 08:31 | Outpatient (CLI) | payer BC, MEDICAID, SELFPAY ==
[2022-07-14 09:01] LABS: Hematocrit 38.9 % (37.0-47.0); Hemoglobin 12.4 g/dL (12.0-15.0)
== END 2022-07-14 08:32 | disposition home or self-care (01) ==
LOC: ANHSURGERY 08:37
PROVIDERS: Anesthesiology; PCP Physician Assistant; Visit Provider Obstetrics & Gynecology
DX: N92.1 Excessive and frequent menstruation with irregular cycle (principal); D64.9 Anemia, unspecified
CPT/HCPCS: 36415; 85014; 85018; 86850; 86900; 86901

== ENCOUNTER → 2022-07-14 15:38 | Outpatient (CLI) | payer BC, MEDICAID, SELFPAY ==
--- NOTE | ~2022-07-14 | CT_ITS ---
EXAMINATION: CT diagnostic chest wo con DATE: 07/14/2022 16:04 INDICATION: Pulmonary nodule. TECHNIQUE: Computed tomography (CT) of the chest was performed without intravenous contrast. The dose -length product was 212.23 mGy-cm. Automated exposure control and iterative reconstruction technique were employed. COMPARISON: Chest dated 02/10/2009 FINDINGS: No thoracic lymphadenopathy. Heart size normal. No significant pleural or pericardial effus ion. The upper abdomen is unremarkable. No significant soft tissue abnormality. No focal airspace con solidation. No endobronchial lesions. No pneumothorax. No significant bone or joint abnormality. Righ t middle lobe nodule, image 63 measuring 4 mm. There is a 2 mm fissural nodule on the left, image 61. IMPRESSION: 1. Bilateral pulmonary nodules measuring 4 mm or less, likely benign. Recommend follow-up low dose CT chest in 12 months. Reviewed, dictated and finalized at location L.
== END ==
PROVIDERS: PCP Physician Assistant; Visit Provider Physician Assistant
DX: R91.8 Other nonspecific abnormal finding of lung field (principal)
CPT/HCPCS: 71250

== ENCOUNTER 2022-07-20 01:21 | Day surgery (SDC) | payer BC, MEDICAID, SELFPAY ==
[2022-07-13 11:28] VITALS: BMI 33.7
--- NOTE | 2022-07-13 11:33 | PC.NURSE ---
Report to the Outpatient Waiting Room, entrance under the green pavilion located off [facility], at time 10:00 on date 07/20/22. Planned Procedure Time: 12:00. Time changes happen often and if your time is changed the preop area will call you the afternoon before. - You and your visitor will be asked to self-screen and do not enter if you have any COVID symptoms. - A mask is optional within the hospital at this time. Patients may have clear liquids (water, carbonated beverages, clear teas, apple juice) until 3 hours prior to surgery (9:00) with a maximum of 20 ounces. - No food from midnight until time of surgery Take the following medications with a SIP of water the morning of surgery: DULOXETINE DO NOT STOP ANY OF YOUR OTHER PRESCRIPTION MEDICATIONS PRIOR TO SURGERY EXCEPT THE FOLLOWING Medications to discontinue per physician: VITAMINS/SUPPLEMENTS Date to take last dose: 07/16/22 Please no make-up, nail wallisian, hairspray, perfume, deodorant, or body powder the day of surgery. No jewelry (including any body piercings) or valuables the day of surgery, leave them at home. Please take a shower or bath the night before, or the morning of, surgery with an antibacterial soap. Wear comfortable, loose fitting clothing. - Jewelry must be removed prior to entering the operating room. Rings and piercings that are not removed may be cut off. - The hospital will not accept responsibility for valuables. - Please leave all valuables, including medications, at home the day of surgery. If you are going home after surgery, a licensed dedicated local truck driver must drive you home. - NO public transportation without another adult if you receive anesthesia. - We recommend that an adult stay with you for 24 hours following discharge. - We also recommend that you do not drive, make important decision, drink alcoholic beverages, or take any drugs that were not prescribed by your health care provider for at least 24 hours after your discharge time. Follow any additional instructions given to you from your surgeon. If you or anyone in your household have experienced Covid symptoms in the past week, please notify your surgeon or the nurse liaison at the phone number below for possible testing. Telephone instructions given to PT - TRAVIS MCCAULEY and asked if any additional questions and then verbalized understanding. Patient advised to call surgeon office or pre surgery nurse liaison [phone] if any additional questions.
[2022-07-20] VITALS (9 sets, daily range): BP systolic 119–143; BP diastolic 74–83; PULSE 54–81; RESP 12–18; TEMP 36.4–36.9; O2SAT 94–100; BMI 33.5
[2022-07-20] MEDS: ACETAMINOPHEN 500 MG TABLET 1000 MG PO (10:16)
[2022-07-20] MEDS: LACTATED RINGERS 1,000 ML 30 ML IV CONT ×2 (10:25→14:11)
[2022-07-20] MEDS: KETOROLAC 15 MG/ML VIAL (*BKC) IV PUSH (10:28)
[2022-07-20] MEDS: SCOPOLAMINE 1.5 MG PATCH TRANSDERM (10:31)
--- NOTE | 2022-07-20 11:45 | SUR.PREOP ---
1145- Notified patient procedure start time may be delayed. Patient and spouse Eb verbalized understanding and denying needs at this time.
--- NOTE | 2022-07-20 12:03 | WPDANESEPPF ---
Anes - Initial Pre Proc Eval Procedure: Operation Date: 07/20/22 12:00 Proposed Procedures p Total Vaginal Hysterectomy with Bilateral Salpingectomy - Socrates Jurado MD Date/Time: 07/20/22 12:03 Surgeon: Socrates Jurado MD Pre Op Diagnosis: Irrg Bleeding, Failed Ablation,Dysmenorrhea Patient Data Age: 31 Gender: F Height: 1.7 m Weight: 97.1 kg Last Vital Signs Temp 36.8 C 07/20/22 10:05 Pulse 81 07/20/22 10:05 Resp 16 07/20/22 10:05 BP 129/83 07/20/22 10:05 Pulse Ox 100 07/20/22 10:05 O2 Del Method Room Air 07/20/22 10:05 Allergies Allergy/AdvReac Type Severity Reaction Status Date / Time No Known Allergies Allergy Verified 07/20/22 10:41 Home Medications Medication Instructions Recorded Confirmed Type duloxetine 30 mg capsule,delayed 30 mg PO DAILY 07/13/22 07/20/22 History release ergocalciferol (vitamin D2) 1,250 1,250 mcg PO WEEKLY 07/13/22 07/20/22 History mcg (50,000 unit) capsule (Vitamin D2) ferrous gluconate 324 mg (38 mg 324 mg PO DAILY 07/13/22 07/13/22 History iron) tablet Patient hx anesthesia problems: none Family hx anesthesia problems: none Results Review: All pre-operative results and documents have been reviewed as part of the pre-operative evaluation. [facility] Past Medical History Medical History (Updated 07/20/22 @ 12:04 by Faustino Vizcaino MD) Anxiety Asthma Obesity Surgical History Surgical History (Updated 07/20/22 @ 12:04 by Faustino Vizcaino MD) History of oral surgery History of tubal ligation Family History Family History Sibling Diabetes mellitus Grandparent Heart disease Social History Social History Smoking status: Never smoker Second hand tobacco smoke exposure: No Alcohol intake: never Substance use: never Substance use type: does not use Living arrangements: with family Spiritual care concerns: No Anes - Eval Final PreProcedure Day of Procedure 07/20/22 12:03 Patient weight: obese Heart: regular rate and rhythm Lungs: clear to auscultation Neurological: alert and oriented Last oral intake: >/= 8 hours ASA classification: II Emergent: no Anesthetic plan: proceed Anesthesia type and monitoring: general ETT and standard monitoring Results Review: All pre-operative results and documents have been reviewed as part of the pre-operative evaluation. Informed Consent: The patient's anesthetic plan and its attendant risks and benefits were discussed with the patient/family/POA. Questions were solicited and answers provided to the satisfaction of the patient/family/POA.
--- NOTE | 2022-07-20 12:30 | PM.IMHP ---
H&P: HPI History of Present Illness Date/Time: 07/20/22 12:30 Chief Complaint: Pain and bleeding Narrative: 31 y/o with with pelvic pain, and heavy, painful menses that have been refractory to conservative management. She has had a tubal ligation with endometrial ablation, but the pain and bleeding have not responded much. She is interested in definitive management with hysterectomy. Review of Systems Review of Systems: All systems reviewed & are unremarkable except as noted in HPI and below PMFSH Past Medical History Medical History Anxiety Asthma Obesity Surgical History Surgical History History of endometrial ablation History of oral surgery History of tubal ligation Family History Family History Sibling Diabetes mellitus Grandparent Heart disease Social History Social History Smoking status: Never smoker Second hand tobacco smoke exposure: No Alcohol intake: never Substance use: never Substance use type: does not use Living arrangements: with family Spiritual care concerns: No Meds Home Medications and Allergies Home Medications Medication Instructions Recorded Confirmed Type duloxetine 30 mg capsule,delayed 30 mg PO DAILY 07/13/22 07/20/22 History release ergocalciferol (vitamin D2) 1,250 1,250 mcg PO WEEKLY 07/13/22 07/20/22 History mcg (50,000 unit) capsule (Vitamin D2) ferrous gluconate 324 mg (38 mg 324 mg PO DAILY 07/13/22 07/13/22 History iron) tablet Allergies Allergy/AdvReac Type Severity Reaction Status Date / Time No Known Allergies Allergy Verified 07/20/22 10:41 Vital Signs Vital Signs - 24 hr 07/20/22 10:05 Temperature 36.8 C Pulse Rate 81 Respiratory Rate 16 Blood Pressure 129/83 Pulse Oximetry 100 Oxygen Delivery Room Air Exam Const: Orientation/consciousness: patient oriented x3 Other: Well-developed, well-nourished female in no acute distress. Neck: Thyroid: thyroid normal Lymphatic: no lymphadenopathy noted (in neck, axilla or inguinal nodes) Resp: Effort & Inspection: normal respiratory effort Auscultation: clear to auscultation bilaterally Cardio: Rate: regular rate Rhythm: regular rhythm Heart sounds: S1 normal heart sound present and S2 normal heart sound present GI: Other: ABD: Soft, nontender, nondistended. No guarding or rebound tenderness. No hepatosplenomegaly. : General: Yes no CVA tenderness Other: External genitalia: normal female hair distribution, without lesion. Urethral meatus: no lesion, non prolapsed. Bladder: no mass, nontender Vagina: well-estrogenized, without lesion or discharge. No cystocele or rectocele. Cervix: no lesion or discharge. Uterus: small, anteverted, freely mobile, nontender Adnexa: no mass or tenderness. Anus/perineum: no lesions, nontender Back/Spine/Pelvis: Back: no CVA tenderness Skin: General skin exam: normal color and no rashes or lesions noted Neuro: General: patient oriented x3 Extrem: Other: Extremities: nontender with no edema Psych: Mental Status: mental status grossly normal Affect: normal affect Assessment and Plan Assessment and plan (1) Menometrorrhagia: Code(s): N92.1 - Excessive and frequent menstruation with irregular cycle Status: Acute Assessment and Plan: A: Menometrorrhagia with dysmenorrhea, pelvic pain, refractory to conservative management. P: We have reviewed medical as well as surgical treatment options. She prefers the latter. Specifically, I have offered her a total vaginal hysterectomy with bilateral salpingectomies. She understands risks of surgery to include risks of anesthesia, risks of pain, infection, bleeding, blood products, thromboembolic phenomena and damage to adjace
--- NOTE | 2022-07-20 12:37 | WPDHPUPDATE1 ---
History and Physical Update Update Date/Time: 07/20/22 12:37 History and Physical has been reviewed, including an updated exam of the patient. There are NO changes in the patient's condition. Risks, benefits, and alternatives have been discussed and questions answered. Patient agrees to proceed with procedure.
--- NOTE | 2022-07-20 12:38 | PM.IMHP ---
H&P: HPI History of Present Illness Date/Time: 07/20/22 12:38 Chief Complaint: Pain and bleeding Narrative: 38 y/o Review of Systems Review of Systems: All systems reviewed & are unremarkable except as noted in HPI and below PMFSH Past Medical History Medical History Anxiety Asthma Obesity Surgical History Surgical History History of endometrial ablation History of oral surgery History of tubal ligation Family History Family History Sibling Diabetes mellitus Grandparent Heart disease Social History Social History Smoking status: Never smoker Second hand tobacco smoke exposure: No Alcohol intake: never Substance use: never Substance use type: does not use Living arrangements: with family Spiritual care concerns: No Meds Home Medications and Allergies Home Medications Medication Instructions Recorded Confirmed Type duloxetine 30 mg capsule,delayed 30 mg PO DAILY 07/13/22 07/20/22 History release ergocalciferol (vitamin D2) 1,250 1,250 mcg PO WEEKLY 07/13/22 07/20/22 History mcg (50,000 unit) capsule (Vitamin D2) ferrous gluconate 324 mg (38 mg 324 mg PO DAILY 07/13/22 07/13/22 History iron) tablet Allergies Allergy/AdvReac Type Severity Reaction Status Date / Time No Known Allergies Allergy Verified 07/20/22 10:41 Vital Signs Vital Signs - 24 hr 07/20/22 10:05 Temperature 36.8 C Pulse Rate 81 Respiratory Rate 16 Blood Pressure 129/83 Pulse Oximetry 100 Oxygen Delivery Room Air Exam Const: Orientation/consciousness: patient oriented x3 Other: Well-developed, well-nourished female in no acute distress. Neck: Thyroid: thyroid normal Lymphatic: no lymphadenopathy noted (in neck, axilla or inguinal nodes) Resp: Effort & Inspection: normal respiratory effort Auscultation: clear to auscultation bilaterally Cardio: Rate: regular rate Rhythm: regular rhythm Heart sounds: S1 normal heart sound present and S2 normal heart sound present GI: Other: ABD: Soft, nontender, nondistended. No guarding or rebound tenderness. No hepatosplenomegaly. : General: Yes no CVA tenderness Other: External genitalia: normal female hair distribution, without lesion. Urethral meatus: no lesion, non prolapsed. Bladder: no mass, nontender Vagina: well-estrogenized, without lesion or discharge. No cystocele or rectocele. Cervix: no lesion or discharge. Uterus: small, anteverted, freely mobile, nontender Adnexa: no mass or tenderness. Anus/perineum: no lesions, nontender Back/Spine/Pelvis: Back: no CVA tenderness Skin: General skin exam: normal color and no rashes or lesions noted Neuro: General: patient oriented x3 Extrem: Other: Extremities: nontender with no edema Psych: Mental Status: mental status grossly normal Affect: normal affect
--- NOTE | 2022-07-20 12:45 | P.HP_ITS ---
H&P: HPI History of Present Illness Date/Time: 07/20/22 12:45 [facility] Past Medical History Medical History Anxiety Asthma Obesity Surgical History Surgical History (Updated 07/20/22 @ 12:45 by Socrates Jurado MD) History of endometrial ablation History of oral surgery History of tubal ligation Family History Family History Sibling Diabetes mellitus Grandparent Heart disease Social History Social History Smoking status: Never smoker Second hand tobacco smoke exposure: No Alcohol intake: never Substance use: never Substance use type: does not use Living arrangements: with family Spiritual care concerns: No Meds Home Medications and Allergies Home Medications Medication Instructions Recorded Confirmed Type duloxetine 30 mg capsule,delayed 30 mg PO DAILY 07/13/22 07/20/22 History release ergocalciferol (vitamin D2) 1,250 1,250 mcg PO WEEKLY 07/13/22 07/20/22 History mcg (50,000 unit) capsule (Vitamin D2) ferrous gluconate 324 mg (38 mg 324 mg PO DAILY 07/13/22 07/13/22 History iron) tablet Allergies Allergy/AdvReac Type Severity Reaction Status Date / Time No Known Allergies Allergy Verified 07/20/22 10:41 Vital Signs Vital Signs - 24 hr 07/20/22 10:05 Temperature 36.8 C Pulse Rate 81 Respiratory Rate 16 Blood Pressure 129/83 Pulse Oximetry 100 Oxygen Delivery Room Air
[2022-07-20] MEDS: ceFAZolin 2 GM/D5W 50 ML 2 GM/50 ML BAG IVPB (12:46)
--- NOTE | 2022-07-20 14:08 | P.OP_ITS ---
Procedure Note - Detailed Date of Procedure 07/20/22 Pre-op Diagnosis Menometrorrhagia Dysmenorrhea Pelvic pain Post-op Diagnosis Same Procedure Performed Total vaginal hysterectomy with bilateral salpingectomies Surgeon Socrates Jurado MD Anesthesia General Findings Enlarged uterus, otherwise normal-appearing. Normal-appearing ovaries bilaterally. Fallopian tubes with evidence of prior tubal ligation, otherwise unremarkable. Description of Procedure The patient was taken to the operating room where she was prepared and draped in the usual sterile fashion in the dorsal lithotomy position. The bladder was drained with red rubber catheter. A weighted speculum was placed posteriorly. A Donna retractor was used anteriorly. The cervix was grasped with a single- tooth tenaculum. Ten mL of sterile saline was infiltrated circumferentially around the cervix to aid in tissue plane dissection. The cervix was circumscribed using electrocautery. The peritoneal cavity was entered sharply posteriorly and a long weighted speculum was placed. The uterosacral and cardinal ligaments on both sides were then clamped, transected and suture ligated using 0 Vicryl. These were tagged for later identification. The bladder was dissected off the cervix and lower uterine segment and reflected away. The LigaSure device was then used to clamp, ligate and transect the broad ligaments bilaterally. Finally, the utero-ovarian ligament, round ligament and tube complexes on both sides were able to be clamped, transected and suture ligated using 0 Vicryl. The specimen was passed off to be sent to pathology. The bilateral fallopian tubes were then dissected, clamped, ligated and transected using the LigaSure device and passed off the field. The pedicles were inspected and found to be hemostatic. The vaginal cuff angles were then transfixed to the ipsilateral cardinal uterosacral ligaments for support. The vaginal cuff was reapproximated using 0 Vicryl in a running, locked fashion. Hemostasis was excellent. A Grossman catheter was placed. Vaginal packing soaked in Premarin cream was placed. Sponge, lap, needle and instrument counts were correct. The patient was awakened and taken to the recovery room in stable condition. I was present and scrubbed for the entire procedure. Implants None Estimated Blood Loss 150 Drains Yes (Grossman) Packing Yes (Vaginal) Pathology Yes (Uterus, cervix, bilateral Fallopian tubes) Complications None Condition Stable Disposition PACU
--- NOTE | 2022-07-20 14:13 | PM.DS ---
DS: Admitting Diagnosis Discharge Date 07/21/22 Admitting Diagnosis Menometrorrhagia Dysmenorrhea Pelvic pain DS: Discharge Diagnosis Discharge Diagnosis (1) Pelvic pain: Code(s): R10.2 - Pelvic and perineal pain Status: Acute (2) Dysmenorrhea: Code(s): N94.6 - Dysmenorrhea, unspecified Status: Acute (3) Menometrorrhagia: Code(s): N92.1 - Excessive and frequent menstruation with irregular cycle Status: Acute DS: Summary Hospital Course Hospital Course: She was admitted on the date of scheduled surgery. She underwent total vaginal hysterectomy with bilateral salpingectomies. Postoperatively she did well and was able to go home on postop day 1. Time Spent with Patient Time attestation: Total time spent providing and/or coordinating discharge services: DS: Data Data Completed and Pending Pending studies at discharge: Pending at discharge 07/20/22 13:54 Surgical [PTH] Routine Discharge Plan Discharge Attending physician on discharge: Socrates Jurado Discharging Clinician: Socrates Jurado Patient Disposition: Home, Self-Care Activity: may shower, may drive after 2 weeks and pelvic rest Diet: regular Discharge Instructions: Remove the Scopolamine patch that was placed behind your ear (on 07/20/2022) in 72 hours or less. Wash your hands after touching. Call or return if temperature above 100.4? F, increased abdominal pain, increased vaginal bleeding or any new problems. Nothing in the vagina for 6 weeks. Stand Alone Forms: General Discharge Instructions Follow-up/Referrals: Socrates Jurado MD [Physician] - 2 Weeks Discharge Medications: New hydrocodone-acetaminophen 5-325 mg tablet 1 - 2 tablet PO Q6H PRN (Reason: pain) Qty: 30 0RF Continued ergocalciferol (vitamin D2) [Vitamin D2] 1,250 mcg (50,000 unit) Capsule 1,250 mcg PO WEEKLY duloxetine 30 mg capsule,delayed release(DR/EC) 30 mg PO DAILY ferrous gluconate 324 mg (38 mg iron) tablet 324 mg PO DAILY Date of admission: 07/20/22 15:26 Primary Care Provider: Bri,Tameka Admitting Provider: Socrates Jurado Attending physician on admission: Socrates Jurado Condition: Stable
[2022-07-20] MEDS: fentaNYL CITRATE INJ (*CRX) 100 MCG/2 ML VIAL 25 MCG IV PUSH ×8 (14:27→14:59)
[2022-07-20] MEDS: HYDROmorphone HCL INJ (*CRX) 1 MG/ML SYR 0.5 MG IV PUSH ×2 (15:09→15:14)
--- NOTE | 2022-07-20 15:35 | PC.NURSE ---
This patient, Ashleigh Sanabria, was received from PACU on 07/20/22 at 1535. Patient/family oriented to unit policies and routines.
[2022-07-20] MEDS: KETOROLAC 30 MG/ML VIAL (*BKC) IV PUSH (15:41)
[2022-07-20] MEDS: DEXTROSE 5%/0.45% SOD CHL 1,000 ML 125 ML IV CONT (15:42)
[2022-07-20] MEDS: HYDROcodone/acetaminophen (*CRX) 10-325 MG TABLET 1 TAB PO ×3 (16:22→23:16)
[2022-07-20] MEDS: ONDANSETRON INJ 4 MG/2 ML VIAL IV PUSH (16:22)
[2022-07-20] MEDS: SIMETHICONE 80 MG TAB.CHEW PO ×3 (17:10→23:13)
[2022-07-20] MEDS: PANTOPRAZOLE 40 MG TABLET PO (18:59)
[2022-07-20] MEDS: ENOXAPARIN 40 MG/0.4 ML SYRINGE SUB-Q (21:35)
[2022-07-20] MEDS: IBUPROFEN 600 MG TABLET PO (23:17)
[2022-07-21 00:18] VITALS: BP 124/84; PULSE 65; RESP 16; TEMP 36.9; O2SAT 97
[2022-07-21 05:34] VITALS: BP 107/70; PULSE 59; RESP 16; TEMP 36.9; O2SAT 97
[2022-07-21] MEDS: IBUPROFEN 600 MG TABLET PO (05:46)
[2022-07-21] MEDS: HYDROcodone/acetaminophen (*CRX) 10-325 MG TABLET 1 TAB PO (05:48)
[2022-07-21 05:51] LABS: Basophils Percent Auto 0.2 % (0.2-1.2); Eosinophils Percent Auto 0.1 % (0-4.4); Hemoglobin 11.4 g/dL (12.0-15.0); Immature Granulocyte Absolute 0.05 K/mm3 (0.00-0.031); Immature Granulocyte Percent A 0.4 % (0-0.5); Lymphocytes Absolute Auto 1.52 K/mm3 (0.9-3.2); Lymphocytes Percent Auto 10.8 % (18.3-44.2); Mean Corpuscular HGB Conc 31.7 g/dl (32-36); Mean Corpuscular Volume 88.5 fl (80-100); Mean Platelet Volume 10.6 fl (7.4-10.4); Monocytes Absolute Auto 0.9 K/mm3 (0.1-0.6); Monocytes Percent Auto 6.1 % (2.6-8.5); Neutrophils Absolute Auto 11.7 K/mm3 (1.3-6.7); Neutrophils Percent Auto 82.4 % (45.5-73.1); Platelet Count Result 196 k/mm3 (150-375); Red Blood Count 4.07 M/mm3 (4.2-5.4); Red Cell Distribution Width 12.6 % (11.5-14.5); White Blood Count 14.1 K/mm3 (4.5-10.0)
[2022-07-21 06:08] LABS: Alanine Aminotransferase 43 U/L (6-35); Albumin Level 4.3 g/dL (3.5-5.1); Alkaline Phosphatase 77 U/L (38-126); Anion Gap 2 mmol/L (8-16); Aspartate Amino Transferase 26 U/L (14-36); Bilirubin,Total 0.7 mg/dL (0.2-1.3); Blood Urea Nitrogen 10 mg/dL (7-17); Calcium 8.8 mg/dL (8.4-10.2); Carbon Dioxide 33 mmol/L (22-30); Chloride 103 mmol/L (98-107); Estimated CRCL calculation 137 ml/min; Estimated Glomerular Filt Rate > 60; Glucose 111 mg/dL (65-110); Potassium 4.3 mmol/L (3.4-5.0); Sodium 138 mmol/L (137-145)
[2022-07-21 08:05] VITALS: BP 119/65; PULSE 75; RESP 18; TEMP 36.7; O2SAT 100
--- NOTE | 2022-07-21 09:08 | PM.GYNPNOP ---
LIBRARY MEDIA TECHNICIAN - A/P Assessment and plan (1) Pelvic pain: Code(s): R10.2 - Pelvic and perineal pain Status: Acute Assessment and Plan: A: POD#1, doing well. P: Home to f/u 2 weeks. (2) Dysmenorrhea: Code(s): N94.6 - Dysmenorrhea, unspecified Status: Acute (3) Menometrorrhagia: Code(s): N92.1 - Excessive and frequent menstruation with irregular cycle Status: Acute Postoperative Procedures: Procedures Operation Date: 07/20/22 12:00 Actual Procedure Side Surgeon p Total Vaginal Hysterectomy with Bilateral Salpingectomy Bilateral Socrates Jurado MD Time Spent With Patient Time: Total time spent is greater than 50% in coordination of care (as documented) at patient's floor/unit and/or counseling patient: Time with patient: less than 15 minutes LIBRARY MEDIA TECHNICIAN- PN:Subj Post-Op Subjective Date/time seen: 07/21/22 09:08 Interval history: Pain OK. Tolerating diet. Voiding. Would like to go home. Exam Narrative: AVSS I/O OK ABD soft, nontender. Incisions c/d/i. EXT nontender LIBRARY MEDIA TECHNICIAN - PN: Obj Data Vital Signs Vital Signs: Vital Signs - 24 hr 07/20/22 10:05 07/20/22 14:11 07/20/22 14:25 Temperature 36.8 C 36.9 C Pulse Rate 81 54 L 56 L Respiratory Rate 16 12 12 Blood Pressure 129/83 138/74 143/82 H Pulse Oximetry 100 100 94 Oxygen Delivery Room Air Simple Face Mask Room Air Oxygen Flow Rate 8 07/20/22 14:40 07/20/22 14:55 07/20/22 15:10 Temperature Pulse Rate 54 L 55 L 62 Respiratory Rate 18 18 16 Blood Pressure 143/81 H 141/78 H 133/78 Pulse Oximetry 100 98 100 Oxygen Delivery Nasal Cannula Nasal Cannula Nasal Cannula Oxygen Flow Rate 3 2 2 07/20/22 15:25 07/20/22 16:00 07/20/22 16:00 Temperature 36.4 C Pulse Rate 59 L 62 Respiratory Rate 12 16 Blood Pressure 125/82 131/80 Pulse Oximetry 100 98 Oxygen Delivery Nasal Cannula Room Air Oxygen Flow Rate 2 07/20/22 19:42 07/20/22 19:42 07/21/22 00:18 Temperature 36.6 C 36.9 C Pulse Rate 59 L 59 L 65 Respiratory Rate 18 18 16 Blood Pressure 119/78 124/84 Pulse Oximetry 97 97 97 Oxygen Delivery Room Air Oxygen Flow Rate 07/21/22 00:18 07/21/22 05:34 07/21/22 05:34 Temperature 36.9 C Pulse Rate 65 59 L 59 L Respiratory Rate 16 16 16 Blood Pressure 107/70 Pulse Oximetry 97 97 97 Oxygen Delivery Room Air Room Air Oxygen Flow Rate Intake/Output Intake/Output: Intake & Output 07/18/22 07/19/22 07/20/22 07/21/22 23:59 23:59 23:59 23:59 Intake Total 2350 600 Output Total 430 4745 Balance 1920 -1874 Meds/Results Medications: Active Medications Generic Name Dose Route Start Last Admin Trade Name Freq PRN Reason Stop Dose Admin Hydrocodone Bitart/Acetaminophen 1 tab 07/20/22 15:26 Hydrocodone/Acetaminophen (*Crx) 5-325 Mg Tablet PO Q3H PRN Pain Rated 5 or Less Hydrocodone Bitart/Acetaminophen 1 tab 07/20/22 15:26 07/21/22 05:48 Hydrocodone/Acetaminophen (*Crx) 10-325 Mg Tablet PO 1 tab Q3H PRN Administration Pain Rated 6 or Greater Duloxetine HCl 30 mg 07/21/22 09:00 Duloxetine Hcl 30 Mg Capsule.Dr PO DAILY ANDRE Enoxaparin Sodium 40 mg 07/20/22 21:00 07/20/22 21:35 Enoxaparin 40 Mg/0.4 Ml Syringe SUB-Q 40 mg DAILY ANDRE Administration Dextrose/Sodium Chloride 1,000 mls @ 125 mls/hr 07/20/22 15:26 07/21/22 06:37 Dextrose 5% Sodium Chloride 0.45% IV CONT Not Given .Q8H ANDRE Ibuprofen 600 mg 07/20/22 15:26 07/21/22 05:46 Ibuprofen 600 Mg Tablet PO 600 mg Q6H PRN Administration Cramping Ketorolac Tromethamine 30 mg 07/20/22 15:26 07/20/22 15:41 Ketorolac 30 Mg/Ml Vial (*Bkc) IV PUSH 07/25/22 15:25 30 mg Q6H PRN Administration Pain Rated 4-6 Naloxone HCl 0.1 mg 07/20/22 15:26 Naloxone Hcl 0.4 Mg/Ml Vial IV PUSH Q2M PRN Respiratory rate less than 10 Ondansetron HCl 4 mg 07/20/22 15:26 07/20/22 16:22 Ondansetron Inj 4 Mg/2 Ml Vial
[2022-07-21] MEDS: DULoxetine HCL 30 MG CAPSULE.DR PO (10:04)
[2022-07-21] MEDS: HYDROcodone/acetaminophen (*CRX) 5-325 MG TABLET 1 TAB PO (10:04)
== END 2022-07-21 09:10 | disposition home or self-care (01) ==
LOC: ANHSURGERY 10:32 → ANHOB2 07-21 07:53
PROVIDERS: PCP Physician Assistant; Visit Provider Obstetrics & Gynecology
PROC: (CPT 58260; principal; 2022-07-20 12:00)
DX: N92.1 Excessive and frequent menstruation with irregular cycle (principal); N94.6 Dysmenorrhea, unspecified; R10.2 Pelvic and perineal pain; N83.8 Other noninflammatory disorders of ovary, fallopian tube and broad ligament; F41.9 Anxiety disorder, unspecified; E66.9 Obesity, unspecified; Z68.33 Body mass index [BMI] 33.0-33.9, adult
CPT/HCPCS: 58262; 36415; 80053; 85025; 88307; A9270; J0690; J1100; J1170; J1650; J1885; J2250; J2405; J2704; J2710; J3010; J7030; J7120

== ENCOUNTER 2023-04-02 14:34 | Emergency (ER) | payer OTHER, BC, SELFPAY ==
--- NOTE | ~2023-04-02 | US_ITS ---
EXAMINATION: US abdomen limited DATE: 04/02/2023 18:25 INDICATION: RUQ pain TECHNIQUE: Multiple grayscale and Doppler ultrasound images of limited portions of the abdomen were o btained. COMPARISON: Ultrasound gallbladder 11/19/2015; CT abdomen pelvis 06/26/2013. FINDINGS: The visualized portions of the pancreas are normal. The liver is normal with normal echogen icity and echotexture. No surface nodularity. Normal hepatopetal flow in the main portal vein. The ga llbladder is contracted. The common bile duct measures 3 mm. There was no sonographic Veras sign. IMPRESSION: The gallbladder is contracted and therefore poorly evaluated. Otherwise normal limited abdominal ultr asound findings. Reviewed, dictated and finalized at location [facility]. ICE AIDE IMPRESSION: The gallbladder is contracted and therefore poorly evaluated. Otherwise normal limited abdominal ultrasound findings.
[2023-04-02 14:43] VITALS: BP 131/82; PULSE 71; RESP 16; TEMP 36.4; O2SAT 100
[2023-04-02 15:08] LABS: Basophils Absolute Auto 0.1 K/mm3 (0.0-0.1); Basophils Percent Auto 0.6 % (0.2-1.2); Eosinophils Absolute Auto 0.1 K/mm3 (0-0.3); Eosinophils Percent Auto 1.6 % (0-4.4); Hematocrit 39.2 % (37.0-47.0); Hemoglobin 12.9 g/dL (12.0-15.0); Immature Granulocyte Absolute 0.02 K/mm3 (0.00-0.031); Immature Granulocyte Percent A 0.2 % (0-0.5); Lymphocytes Absolute Auto 2.91 K/mm3 (0.9-3.2); Lymphocytes Percent Auto 35.5 % (18.3-44.2); Mean Corpuscular HGB Conc 32.9 g/dl (32-36); Mean Corpuscular Hemoglobin 28.6 pg (26-34); Mean Corpuscular Volume 86.9 fl (80-100); Monocytes Absolute Auto 0.5 K/mm3 (0.1-0.6); Monocytes Percent Auto 5.7 % (2.6-8.5); Neutrophils Absolute Auto 4.6 K/mm3 (1.3-6.7); Neutrophils Percent Auto 56.4 % (45.5-73.1); Platelet Count Result 192 k/mm3 (150-375); Red Blood Count 4.51 M/mm3 (4.2-5.4); Red Cell Distribution Width 12.3 % (11.5-14.5); White Blood Count 8.2 K/mm3 (4.5-10.0)
[2023-04-02 15:10] LABS: Appearance Urine Clear (Clear); Bilirubin Urine Negative (Negative); Blood Urine Negative (Negative); Color Urine Yellow (Yellow); Glucose Urine UA Negative (Negative); Ketones Urine Negative (Negative); Leukocyte Esterase Ur Negative LEU/UL (Negative); Nitrate Urine Negative (Negative); Protein Urine Negative (Negative); Specific Grav Ur 1.027 (1.001-1.035); Urobilinogen Urine 0.2 mg/dL (<2.0); pH Urine 6.5 (5.0-9.0)
[2023-04-02 15:11] LABS: Add Urine Microscopic? NO
[2023-04-02 15:21] LABS: Alanine Aminotransferase 29 U/L (6-35); Albumin Level 4.1 g/dL (3.5-5.1); Alkaline Phosphatase 66 U/L (38-126); Anion Gap 8 mmol/L (8-16); Aspartate Amino Transferase 29 U/L (14-36); Bilirubin,Total 0.3 mg/dL (0.2-1.3); Blood Urea Nitrogen 12 mg/dL (7-17); Carbon Dioxide 29 mmol/L (22-30); Chloride 104 mmol/L (98-107); Estimated Glomerular Filt Rate > 60; Glucose 93 mg/dL (65-110); Lipase 213 U/L (23-300); Potassium 3.3 mmol/L (3.4-5.0); Sodium 141 mmol/L (137-145)
--- NOTE | 2023-04-02 16:47 | ED.ABDPAIN ---
HPI - Abdominal Pain General Chief Complaint: Abdominal Pain Stated Complaint: Stomach pain Time Seen by Provider: 04/02/23 16:17 History of Present Illness HPI narrative: 32-year-old female presenting to emergency department for evaluation of right upper quadrant pain that wraps around her back and to her shoulder. Patient has no prior history of gallbladder disease but has had similar pain before. Patient states her mother has had issues with her gallbladder. Patient herself has had 5 children. Patient reports since she has had worsening right upper quadrant pain. Patient states prior to arrival the pain worse. Patient describes associated nausea without vomiting. Patient is not suspect the pain is only associated with food Related Data Home Medications Medication Instructions Recorded Confirmed duloxetine 30 mg capsule,delayed 30 mg PO DAILY 07/13/22 08/11/22 release ferrous gluconate 324 mg (38 mg 324 mg PO DAILY 07/13/22 08/11/22 iron) tablet Allergies Allergy/AdvReac Type Severity Reaction Status Date / Time No Known Allergies Allergy Verified 04/02/23 17:12 Review of Systems Review of Systems: All systems reviewed & are unremarkable except as noted in HPI and below PMFSH Past Medical History Medical History Anxiety Asthma Obesity Surgical History Surgical History History of endometrial ablation History of oral surgery History of tubal ligation Family History Family History (Updated 08/11/22 @ 08:14 by Barbie Dalal CMA) Sibling Diabetes mellitus Depression Grandparent Heart disease Depression Father Alcoholism Depression Heart disease Mother Depression Social History Social History (Updated 08/11/22 @ 08:11 by Barbie Dalal CMA) Smoking status: Never smoker Second hand tobacco smoke exposure: No Alcohol intake: never Substance use: never Substance use type: does not use Lack of Transportation: No Lack of Food: Never True Current Housing: I Have Housing Concerned About Future Housing: No Difficulty Paying Gas/Electric Bills: No Difficulty Paying for Meds: No Currently Unemployed: No Education: High School Diploma/GED Difficulty w/ Childcare or Family Care: YES Living arrangements: with family Spiritual care concerns: No Exam Narrative: APPEARANCE: Well appearing, no pain, no distress, well-nourished. HEAD: normocephalic, atraumatic. EYES: PERRLA/EOMI, conjunctivae clear. NOSE: Normal no drainage EARS:TMS clear with good light reflex. THROAT: Pharynx clear, no exudate. NECK: Supple. No adenopathy, no masses. RESPIRATORY: Airway patent, respirations nonlabored. Clear to auscultation bilaterally, no rales, rhonchi, wheezing. CARDIOVASCULAR: Regular rate and rhythm without murmurs rubs or gallops. ABDOMINAL: Right upper quadrant tenderness to palpation MUSCULOSKELETAL: Moves all extremities. Strength/ROM intact, No edema, No calf tenderness. NEURO: Alert. Cranial nerves II through XII intact. Good gait. Good coordination SKIN: Warm, dry. Normal Color Course Course Emergency Course: 32-year-old female presents emergency department for evaluation of intermittent right upper quadrant pain. Patient is afebrile with no leukocytosis and a stable hemoglobin of 12.9. Patient has no elevation in T bili AST ALT or alk-phos. Patient has normal lipase. No evidence of urinary tract infection. Ultrasound showed normal gallbladder. Patient was obtained results of her workup. Patient did feel improved with treatment. Patient was updated on results of her workup and the importance of close follow-up. Vital Signs Vital signs: Vital Signs Temperature 97.5 F L 04/02/23 14:43 Pulse Rate 71 04/02/23 14:43 Respiratory Rate 16 04/02/23 14:43 Blood Pressure 131/82 04/02/23 14:43 Pulse Oxim
[2023-04-02 17:00] VITALS: BP 113/72; PULSE 66; RESP 15; O2SAT 100
[2023-04-02] MEDS: ONDANSETRON INJ 4 MG/2 ML VIAL IV PUSH (17:11)
[2023-04-02] MEDS: SODIUM CHLORIDE 0.9% IV 1,000 ML 999 ML IV CONT (17:11)
[2023-04-02 18:56] VITALS: BP 123/79; PULSE 60; RESP 18; O2SAT 100
== END 2023-04-02 19:17 | disposition home or self-care (01) ==
PROVIDERS: Emergency Provider Emergency Medicine; PCP Physician Assistant
DX: R10.11 Right upper quadrant pain (principal); F41.9 Anxiety disorder, unspecified; J45.909 Unspecified asthma, uncomplicated
CPT/HCPCS: 36415; 76705; 80053; 81003; 81025; 83690; 85025; 96361; 96374; 99284; J2405; J7030

== ENCOUNTER 2023-04-20 12:48 | Outpatient (CLI) | payer OTHER, BC, SELFPAY ==
[2023-04-20 14:43] LABS: Alanine Aminotransferase 24 U/L (6-35); Albumin Level 4.4 g/dL (3.5-5.1); Alkaline Phosphatase 63 U/L (38-126); Amylase 101 U/L (30-110); Aspartate Amino Transferase 24 U/L (14-36); Bilirubin,Total 0.6 mg/dL (0.2-1.3); Lipase 173 U/L (23-300)
== END 2023-04-20 12:49 | disposition home or self-care (01) ==
PROVIDERS: PCP Physician Assistant; Visit Provider Surgery
DX: K81.1 Chronic cholecystitis (principal); Z01.818 Encounter for other preprocedural examination
CPT/HCPCS: 36415; 80076; 82150; 83690

== ENCOUNTER 2023-04-26 01:55 | Day surgery (SDC) | payer OTHER, BC, SELFPAY ==
[2023-04-20 12:26] VITALS: BMI 32.8
--- NOTE | 2023-04-20 12:31 | PC.NURSE ---
Report to the Outpatient Waiting Room, entrance under the green pavilion located off [facility], at time 10:00 on date 04/26/23. Planned Procedure Time: 12:00. Time changes happen often and if your time is changed the preop area will call you the afternoon before. - You and your visitor will be asked to self-screen and do not enter if you have any COVID symptoms. - A mask is optional within the hospital at this time. Patients may have clear liquids (water, carbonated beverages, clear teas, apple juice) until 3 hours prior to surgery (9:00) with a maximum of 20 ounces. - No food from midnight until time of surgery Take the following medications with a SIP of water the morning of surgery: N/A DO NOT STOP ANY OF YOUR OTHER PRESCRIPTION MEDICATIONS PRIOR TO SURGERY ?EXCEPT THE FOLLOWING Medications to discontinue per physician: N/A Date to take last dose: N/A Please no make-up, nail chadian, hairspray, perfume, deodorant, or body powder the day of surgery. No jewelry (including any body piercings) or valuables the day of surgery, leave them at home. Please take a shower or bath the night before, or the morning of, surgery with an antibacterial soap. Wear comfortable, loose fitting clothing. - Jewelry must be removed prior to entering the operating room. Rings and piercings that are not removed may be cut off. - The hospital will not accept responsibility for valuables. - Please leave all valuables, including medications, at home the day of surgery. If you are going home after surgery, a licensed carrier driver must drive you home. - NO public transportation without another adult if you receive anesthesia. - We recommend that an adult stay with you for 24 hours following discharge. - We also recommend that you do not drive, make important decision, drink alcoholic beverages, or take any drugs that were not prescribed by your health care provider for at least 24 hours after your discharge time. Follow any additional instructions given to you from your surgeon. If you or anyone in your household have experienced Covid symptoms in the past week, please notify your surgeon or the nurse liaison at the phone number below for possible testing. Telephone instructions given to PT- TRAVIS MCCAULEY and asked if any additional questions and then verbalized understanding. Patient advised to call surgeon office or pre surgery nurse liaison [phone] if any additional questions.
--- NOTE | 2023-04-25 14:56 | P.PNAN_ITS ---
Anes - Initial Pre Proc Eval Procedure: Operation Date: 04/26/23 14:30 Proposed Procedures p Laparoscopic Cholecystectomy - Marlo Garcia DO Date/Time: 04/25/23 14:56 Surgeon: Marlo Garcia DO Pre Op Diagnosis: Chr Cholecystitis Patient Data Age: 32 Gender: F Height: 1.68 m Weight: 92.1 kg Allergies Allergy/AdvReac Type Severity Reaction Status Date / Time No Known Allergies Allergy Verified 04/20/23 12:26 Home Medications Medication Instructions Recorded Confirmed Type No Home Medications 04/20/23 04/20/23 History Patient hx anesthesia problems: none Family hx anesthesia problems: none Results Review: All pre-operative results and documents have been reviewed as part of the pre- operative evaluation. [facility] Past Medical History Medical History (Updated 04/20/23 @ 10:53 by Yany Graham) Anxiety Asthma Obesity Surgical History Surgical History H/O: hysterectomy History of endometrial ablation History of oral surgery History of tubal ligation Family History Family History Sibling Diabetes mellitus Depression Grandparent Heart disease Depression Father Alcoholism Depression Heart disease Mother Depression Social History Social History Smoking status: Never smoker Second hand tobacco smoke exposure: No Alcohol intake: never Substance use: never Substance use type: does not use Lack of Transportation: No Lack of Food: Never True Current Housing: I Have Housing Concerned About Future Housing: No Difficulty Paying Gas/Electric Bills: No Difficulty Paying for Meds: No Currently Unemployed: No Education: High School Diploma/GED Difficulty w/ Childcare or Family Care: YES Living arrangements: with family Spiritual care concerns: No Anes - Eval Final PreProcedure Day of Procedure 04/25/23 14:56 Patient weight: obese Heart: regular rate and rhythm Lungs: clear to auscultation Airway: Mallampati scale class II Neurological: alert and oriented Last oral intake: >/= 8 hours ASA classification: II Emergent: no Anesthetic plan: proceed Anesthesia type and monitoring: general ETT and standard monitoring Results Review: All pre-operative results and documents have been reviewed as part of the pre- operative evaluation. Informed Consent: The patient's anesthetic plan and its attendant risks and benefits were discussed with the patient/family/POA. Questions were solicited and answers provided to the satisfaction of the patient/family/POA.
[2023-04-26] VITALS (9 sets, daily range): BP systolic 114–136; BP diastolic 63–77; PULSE 66–90; RESP 12–20; TEMP 36.6–36.9; O2SAT 96–100
[2023-04-26] MEDS: ACETAMINOPHEN 500 MG TABLET 1000 MG PO (13:05)
[2023-04-26] MEDS: LACTATED RINGERS 1,000 ML 30 ML IV CONT ×2 (13:15→16:16)
[2023-04-26] MEDS: KETOROLAC 15 MG/ML VIAL (*BKC) IV PUSH (13:17)
--- NOTE | 2023-04-26 14:19 | PM.IMHP ---
H&P: HPI History of Present Illness Date/Time: 04/26/23 14:19 Chief Complaint: Chronic cholecystitis Narrative: This is a 32-year-old woman who presents for laparoscopic cholecystectomy. She was originally scheduled with my partner, but due to an injury he was unable to perform her surgery. She was given the option of keeping her surgery date proceeding with me. Patient reports no changes since she was last seen in the office by Dr. Guerra. Review of Systems Review of Systems: All systems reviewed & are unremarkable except as noted in HPI and below Constitutional: Constitutional: Denies chills, Denies fever(s), Denies headache(s) and Denies weight loss Eyes: Eyes: Denies change in vision ENT: Denies dizziness, Denies headache(s), Denies neck mass and Denies throat swelling Cardiovascular: Cardiovascular: Denies chest pain, Denies lightheadedness and Denies dyspnea Respiratory: Respiratory: Denies cough, Denies dyspnea and Denies wheezing Gastrointestinal: Gastrointestinal: Denies abdominal pain, Denies change in bowel habits, Denies nausea and Denies vomiting Genitourinary: Genitourinary: Denies hematuria and Denies dysuria Musculoskeletal: Musculoskeletal: Reports as per HPI Integumentary/Breasts: Skin/Breast: Reports as per HPI Neurologic: Denies dizziness and Denies headache(s) Allergic/Immunologic: Allergic/Immunologic: Denies throat swelling and Denies wheezing [facility] Past Medical History Medical History (Updated 04/20/23 @ 10:53 by Yany Graham) Anxiety Asthma Obesity Surgical History Surgical History H/O: hysterectomy History of endometrial ablation History of oral surgery History of tubal ligation Family History Family History Sibling Diabetes mellitus Depression Grandparent Heart disease Depression Father Alcoholism Depression Heart disease Mother Depression Social History Social History Smoking status: Never smoker Second hand tobacco smoke exposure: No Alcohol intake: never Substance use: never Substance use type: does not use Lack of Transportation: No Lack of Food: Never True Current Housing: I Have Housing Concerned About Future Housing: No Difficulty Paying Gas/Electric Bills: No Difficulty Paying for Meds: No Currently Unemployed: No Education: High School Diploma/GED Difficulty w/ Childcare or Family Care: YES Living arrangements: with family Spiritual care concerns: No Meds Home Medications and Allergies Home Medications Medication Instructions Recorded Confirmed Type No Home Medications 04/20/23 04/20/23 History Allergies Allergy/AdvReac Type Severity Reaction Status Date / Time No Known Allergies Allergy Verified 04/20/23 12:26 Vital Signs Vital Signs - 24 hr 04/26/23 12:31 Temperature 36.6 C Pulse Rate 72 Respiratory Rate 20 Blood Pressure 124/77 Pulse Oximetry 100 Oxygen Delivery Room Air Exam Const: General: no acute distress and alert Orientation/consciousness: patient oriented x3 HENMT: Head: normocephalic and atraumatic Ears: hearing grossly normal bilaterally Face/Nose/Sinus: Normal nares present Mouth: Yes Normal oral and palatal mucosa present Eyes: Periorbital: periorbital findings normal Sclera: sclerae normal EOM: EOMs intact bilaterally Neck: Neck: normal visual inspection, no lymphadenopathy and trachea midline Chest: Chest palpation & inspection: normal inspection of the chest Resp: Effort & Inspection: normal respiratory effort Auscultation: clear to auscultation bilaterally Cardio: Jugular venous distension: no JVD Rate: regular rate Rhythm: regular rhythm Heart sounds: S1 normal heart sound present and S2 normal heart sound present Peripheral pulses: Peripheral pulses 2+ throughout G
--- NOTE | 2023-04-26 14:21 | WPDHPUPDATE1 ---
History and Physical Update Update Date/Time: 04/26/23 14:21 History and Physical has been reviewed, including an updated exam of the patient. There are NO changes in the patient's condition. Risks, benefits, and alternatives have been discussed and questions answered. Patient agrees to proceed with procedure.
[2023-04-26] MEDS: ceFAZolin 2 GM/D5W 50 ML 2 GM/50 ML BAG IVPB (14:49)
[2023-04-26] MEDS: BUPivacaine HCL 0.5% PF 30 ML VIAL INFILTRATE (15:19)
--- NOTE | 2023-04-26 15:37 | W.PM.PROC2 ---
Procedure Note - Detailed Date of Procedure 04/26/23 Pre-op Diagnosis Chronic Cholecystitis Post-op Diagnosis Same Procedure Performed Laparoscopic Cholecystectomy Surgeon Marlo Garcia, DO Anesthesia General and Local (0.5% bupivacaine) Indications This is a 32-year-old woman who presented with intermittent right upper quadrant pain that started several weeks ago. She has had some occasional intermittent pain see prior to this, but around Anthony time and shortly after she began experiencing more frequent right upper quadrant pains. She went to the emergency department 04/02/2023 and workup was essentially normal other than the finding of a contracted gallbladder on ultrasound. She then followed up with Dr. Guerra and treatment options were discussed in the office. Decision was made to proceed with laparoscopic cholecystectomy. Dr. Guerra became injured and could not proceed with the surgery the scheduled date, but patient was agreeable to proceeding with me. Findings Laparoscopic cholecystectomy was performed. The gallbladder had a couple pericholecystic adhesions. No other significant abnormalities were noted. The cystic duct appeared normal in size. The gallbladder was removed and sent to lab for pathology. Description of Procedure Procedure as well as risks, benefits, and alternatives were discussed with patient. Written consent was obtained and placed in chart prior to procedure. The patient was brought back to surgical suite. Patient was placed in supine position on operating table. Time-out was done to confirm patient and procedure. Patient was then intubated by the anesthesia department. Abdomen was prepped and draped in sterile fashion using chlorhexidine prep. 0.5% bupivacaine with epinephrine was infiltrated at each site of incision. A 5 millimeter incision was made near the umbilicus, and a 5 millimeter Optiview trocar was advanced through the abdominal layers under direct visualization. Once inside the abdominal cavity, carbon dioxide was insufflated to create a pneumoperitoneum. The camera was inserted and the abdomen was inspected. No immediate abnormalities were identified. The patient was placed in reverse Trendelenburg position and rotated slightly to the left. An 11 millimeter incision was made in the subxiphoid region, and an 11 millimeter trocar was inserted under direct visualization. Two 5 millimeter incisions were made in the right upper quadrant, and two 5 millimeter trocars were inserted under direct visualization. The gallbladder was identified and grasped at the fundus and retracted superiorly. It was then grasped at the infundibulum retracted laterally. Careful dissection around the neck of the gallbladder was performed using blunt dissection with a [place] grasper and hook electrocautery. The cystic duct was identified, and a window was created behind it. The cystic artery was also identified and a window was created behind it. The critical view of safety was identified, visualizing the cystic duct running directly into the neck of the gallbladder, and the cystic artery running directly into the wall of the gallbladder. A 5 millimeter clip chiller technician was then used to place 2 clips proximally and 1 clip distally on both the cystic duct and cystic artery. They were then both transected using endoscopic scissors. Once safely away from the stephanie hepatitis, the gallbladder was dissected free from the liver bed using hook electrocautery. Hemostasis was achieved along the way. The gallbladder was removed completely and then removed through the subxiphoid port. The liver bed was then inspected. Hemostasis appeared adequate, and our clips appeared secure. The area was gently irrigated with sterile saline. No other abnormalities were seen. The patient was flattened out in bed, and 1 final inspection was made around the abdominal cavity. The subxiphoid port was removed, and a Hernán Harjeet cone was used to approximate
[2023-04-26] MEDS: ONDANSETRON INJ 4 MG/2 ML VIAL IV PUSH (15:58)
[2023-04-26] MEDS: fentaNYL CITRATE INJ (*CRX) 100 MCG/2 ML VIAL 25 MCG IV PUSH ×6 (16:16→16:41)
[2023-04-26] MEDS: oxyCODONE HCL (*CRX) 5 MG TAB IR PO (17:18)
== END 2023-04-26 17:50 | disposition home or self-care (01) ==
PROVIDERS: PCP Physician Assistant; Visit Provider Surgery
PROC: 0FT44ZZ Resection of Gallbladder, Percutaneous Endoscopic Approach (ICD-10-PCS; CPT 47562; principal; 2023-04-26 14:30)
DX: K82.8 Other specified diseases of gallbladder (principal); E66.9 Obesity, unspecified; Z68.32 Body mass index [BMI] 32.0-32.9, adult
CPT/HCPCS: 47562; 36415; 80076; 82150; 83690; 88304; A9270; J0690; J1885; J2250; J2405; J3010; J7030; J7120

== ENCOUNTER 2023-06-06 14:24 | Outpatient (CLI) | payer OTHER, BC, SELFPAY ==
--- NOTE | ~2023-06-06 | CT_ITS ---
CT of the Abdomen and Pelvis: Indication: Abdominal pain Technique: 2.5 mm axial scans were obtained through the abdomen and pelvis following intravenous adm inistration of 100 cc of Omnipaque 350. Dose reduction technique was used on this scan by utilizing a utomated exposure control and iterative reconstruction technique. The dose-length product (DLP) was 9 05.23 mGy-cm. Findings: Scans through the lung bases are unremarkable. The liver, spleen, pancreas, adrenals and kidneys are within normal limits. Cholecystectomy clips are present. No evidence of aortic aneurysm. No lymphadenopathy. No bowel obstruction or bowel wall thickening. There is no evidence to suggest acute appendicitis. Images through the pelvis were performed. Urinary bladder unremarkable. No adnexal mass seen. No asci clarisa. Impression: No significant abnormalities seen. Reviewed, dictated and finalized at [facility]. STANT DIRECTOR OF PUBLIC WORKS Impression: No significant abnormalities seen.
--- NOTE | ~2023-06-06 | CT_ITS ---
CT Scan of the Chest without Contrast: Clinical Indication: Abdominal pain, lung nodules Technique: Contiguous sections were acquired throughout the chest without intravenous contrast. Dose reduction technique was used on this scan by utilizing automated exposure control and iterative recon struction technique. The dose-length product (DLP) was 260.27 mGy-cm. COMPARISON: 07/14/2022 Findings: There is no evidence of any significant mediastinal, hilar or axillary lymphadenopathy. The mediastin al soft tissues appear normal. There is no evidence of pleural or pericardial effusion. Stable 4 mm apical pulmonary nodule. Stable 4 mm right middle lobe pulmonary nodule. Images through the upper abdomen reveal no abnormalities. Impression: Subcentimeter pulmonary nodules, most likely benign, stable. Reviewed, dictated and finalized at [facility]. TOLOGY ONCOLOGY CONSULTANT Impression: Subcentimeter pulmonary nodules, most likely benign, stable.
== END 2023-06-06 14:25 | disposition home or self-care (01) ==
PROVIDERS: PCP Physician Assistant; Visit Provider Physician Assistant
DX: R10.84 Generalized abdominal pain (principal); R91.8 Other nonspecific abnormal finding of lung field
CPT/HCPCS: 71250; 74177; Q9967

== ENCOUNTER 2023-07-10 17:16 | Emergency (ER) | payer OTHER, BC, SELFPAY ==
[2023-07-10] VITALS (14 sets, daily range): BP systolic 118–134; BP diastolic 82–87; PULSE 70–76; RESP 16–18; TEMP 36.3–36.6; O2SAT 97–100
--- NOTE | ~2023-07-10 | US_ITS ---
EXAMINATION: US pelvic complete w TV DATE: 07/10/2023 19:43 INDICATION: L sided pelvic pain, hx cyst, r/o torsion TECHNIQUE: Multiple transabdominal and endovaginal sonographic images of the pelvis were obtained. COMPARISON: 06/07/2022 FINDINGS: Uterus: Surgically absent. Right Ovary: 2.5 x 2.1 x 2.4 cm. Vascular flow is present. 1.7 cm simple cyst or dominant follicle. Left Ovary: 2.7 x 1.6 x 1.4 cm. Vascular flow is present. No adnexal mass. There is no free fluid in the pelvis. IMPRESSION: Status post hysterectomy, otherwise normal pelvic sonogram findings. Reviewed, dictated and finalized at location K.
[2023-07-10 17:39] LABS: Appearance Urine Clear (Clear); Bilirubin Urine Negative (Negative); Blood Urine Negative (Negative); Color Urine Yellow (Yellow); Glucose Urine UA Negative (Negative); Ketones Urine Negative (Negative); Leukocyte Esterase Ur Negative LEU/UL (Negative); Nitrate Urine Negative (Negative); Protein Urine Negative (Negative); Specific Grav Ur 1.025 (1.001-1.035); Urobilinogen Urine 0.2 mg/dL (<2.0); pH Urine 6.5 (5.0-9.0)
[2023-07-10 17:44] LABS: Basophils Absolute Auto 0.1 K/mm3 (0.0-0.1); Basophils Percent Auto 0.8 % (0.2-1.2); Eosinophils Absolute Auto 0.2 K/mm3 (0-0.3); Eosinophils Percent Auto 2.5 % (0-4.4); Hematocrit 38.7 % (37.0-47.0); Hemoglobin 12.6 g/dL (12.0-15.0); Immature Granulocyte Absolute 0.03 K/mm3 (0.00-0.031); Immature Granulocyte Percent A 0.3 % (0-0.5); Lymphocytes Percent Auto 37.7 % (18.3-44.2); Mean Corpuscular HGB Conc 32.6 g/dl (32-36); Mean Corpuscular Hemoglobin 28.9 pg (26-34); Mean Corpuscular Volume 88.8 fl (80-100); Mean Platelet Volume 10.9 fl (7.4-10.4); Monocytes Absolute Auto 0.6 K/mm3 (0.1-0.6); Monocytes Percent Auto 6.7 % (2.6-8.5); Neutrophils Absolute Auto 4.6 K/mm3 (1.3-6.7); Platelet Count Result 186 k/mm3 (150-375); Red Blood Count 4.36 M/mm3 (4.2-5.4); Red Cell Distribution Width 12.6 % (11.5-14.5); White Blood Count 8.8 K/mm3 (4.5-10.0)
[2023-07-10 17:44] LABS: Add Urine Microscopic? NO
[2023-07-10 17:56] LABS: Alanine Aminotransferase 23 U/L (6-35); Albumin Level 4.3 g/dL (3.5-5.1); Alkaline Phosphatase 73 U/L (38-126); Anion Gap 7 mmol/L (4-12); Aspartate Amino Transferase 23 U/L (14-36); Bilirubin,Total 0.3 mg/dL (0.2-1.3); Blood Urea Nitrogen 13 mg/dL (7-17); Calcium 9.1 mg/dL (8.4-10.2); Carbon Dioxide 29 mmol/L (22-30); Chloride 104 mmol/L (98-107); Estimated CRCL calculation 130 ml/min; Estimated Glomerular Filt Rate > 60; Glucose 106 mg/dL (65-110); Lipase 129 U/L (23-300); Potassium 3.5 mmol/L (3.4-5.0); Sodium 140 mmol/L (137-145)
--- NOTE | 2023-07-10 18:23 | ED.ABDPAIN ---
HPI - Abdominal Pain General Chief Complaint: Abdominal Pain Stated Complaint: pelvic pain Time Seen by Provider: 07/10/23 17:25 Source: patient Mode of arrival: ambulatory Limitations: no limitations History of Present Illness HPI narrative: Patient is a 32-year-old female who presents the ED with report of left-sided pelvic pain. Patient reports having pain throughout her left-sided pelvic region/left lower abdomen today. States it was mild at first this morning, became worse throughout the afternoon and was much more severe after leaving work. She then prompted here. Pain is improved currently. She did not take anything for the pain. She notes history of similar pain, 1-2 times per month. Has history of ovarian cyst. Hx hysterectomy, 5 children. She did report nausea with the pain, denies any nausea currently. Denies vomiting. Denies vaginal bleeding, dysuria, hematuria. Denies fever. Related Data Home Medications Medication Instructions Recorded Confirmed No Home Medications 05/17/23 05/17/23 Allergies Allergy/AdvReac Type Severity Reaction Status Date / Time No Known Allergies Allergy Verified 07/10/23 17:16 Review of Systems Review of Systems: CONSTITUTIONAL: Denies fever, chills, or sweats. CARDIOVASCULAR: Denies chest pain. RESPIRATORY: Denies dyspnea. GASTROINTESTINAL: See HPI GENITOURINARY: Denies vaginal bleeding, dysuria or hematuria. All systems reviewed & are unremarkable except as noted in HPI and below PMFSH Past Medical History Medical History Anxiety Asthma Obesity Surgical History Surgical History H/O: hysterectomy History of endometrial ablation History of laparoscopic cholecystectomy 04/26/23 [facility] History of oral surgery History of tubal ligation Family History Family History Sibling Diabetes mellitus Depression Grandparent Heart disease Depression Father Alcoholism Depression Heart disease Mother Depression Social History Social History Smoking status: Never smoker Second hand tobacco smoke exposure: No Alcohol intake: never Substance use: never Substance use type: does not use Lack of Transportation: No Lack of Food: Never True Current Housing: I Have Housing Concerned About Future Housing: No Difficulty Paying Gas/Electric Bills: No Difficulty Paying for Meds: No Currently Unemployed: No Education: High School Diploma/GED Difficulty w/ Childcare or Family Care: YES Living arrangements: with family Spiritual care concerns: No Exam Narrative: GENERAL: Well appearing, well-nourished, non-toxic, in no acute distress. HEAD: Normocephalic, atraumatic. RESPIRATORY: Airway patent, respirations nonlabored. Clear to auscultation bilaterally, no rales, rhonchi, wheezing. CARDIOVASCULAR: Regular rate and rhythm ABDOMINAL: Soft, mild tenderness in L lower abdomen, pelvic region. No rebound, nondistended. Normoactive BS. MUSCULOSKELETAL: Moves all extremities. No gross deformities. SKIN: Warm, dry, normal color. NEURO: A&O X3. Speech clear. PSYCHIATRIC: Appropriate mood and affect. Normal interaction. Course Vital Signs Vital signs: Vital Signs Temperature 97.9 F 07/10/23 17:23 Pulse Rate 70 07/10/23 17:23 Respiratory Rate 16 07/10/23 17:23 Blood Pressure 134/82 07/10/23 17:23 Pulse Oximetry 100 07/10/23 17:23 Oxygen Delivery Room Air 07/10/23 17:23 Temperature 97.4 F L 07/10/23 20:45 Pulse Rate 76 07/10/23 20:45 Respiratory Rate 17 07/10/23 20:45 Blood Pressure 129/87 07/10/23 20:45 Pulse Oximetry 100 07/10/23 20:46 Oxygen Delivery Room Air 07/10/23 17:23 MDM - Abdominal Pain MDM Narrative Medical decision making narrative
== END 2023-07-10 21:06 | disposition home or self-care (01) ==
PROVIDERS: Emergency Medicine; Emergency Provider Physician Assistant; PCP Physician Assistant
DX: R10.32 Left lower quadrant pain (principal); N83.201 Unspecified ovarian cyst, right side; F41.9 Anxiety disorder, unspecified; J45.909 Unspecified asthma, uncomplicated
CPT/HCPCS: 36415; 76830; 76856; 80053; 81003; 83690; 85025; 99284

== ENCOUNTER 2024-10-30 09:33 | Outpatient (CLI) | payer OTHER, BC, SELFPAY ==
--- NOTE | ~2024-10-30 | XR_ITS ---
XR lumbar spine 2-3V 10/30/2024 10:22 Indication: Acute low back pain without sciatica Procedure: 3 views lumbar spine Comparison: No prior studies for comparison. Findings: Vertebral body height is maintained. Mild disc narrowing at L5-S1. No evidence for spondylo listhesis. No acute fracture or traumatic malalignment. Pedicles intact. Sacral foramen are symmetric . There are cholecystectomy clips. Impression: 1: Mild lumbar spondylosis. Reviewed, dictated and finalized at location A. Impression: 1: Mild lumbar spondylosis.
--- OUTSIDE RECORDS SUMMARY | 2024-10-30 09:56 | XMS_ITS | Clinical Summary ---
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 every 12 hours as needed for cold sore breakthrough Active dicyclomine (BENTYL) 20 mg tabletIndicatio ns:Enterocoliti s Take 1 tablet (20 mg total) by mouth 2 (two) times a day 20 tablet 5 Active omeprazole (PriLOSEC) 40 mg capsule Take 1 capsule (40 mg total) by mouth 2 (two) times a day before breakfast and dinner 60 capsule 3 5 Active Active Problems Problem Noted Date Diagnosed Date Abdominal pain 09/12/2024 Diarrhea 09/12/2024 Encounters Date Type Department Care Team Description 5 Orders Only [facility] Gastroenterology at [address] [place] [phone] Ti Lee MD Abdominal pain (Primary Dx); Diarrhea, unspecified type 5 Orders Only [facility] Gastroenterology at [address] [place] [phone] Ti Lee MD Abdominal pain (Primary Dx); Diarrhea, unspecified type 5 Results Follow-Up [facility] Gastroenterology at [address] [phone] Ti Lee MD Surgical pathology 5 Orders Only [facility] Gastroenterology at [address] [phone] Ti Lee MD 5 10:35 AM CDT Anesthesia Event [facility] GI Lab [address] [place] [phone] Eduardo Ochoa MD 5 10:30 AM CDT - 5 11:00 AM CDT Surgery [facility] GI Lab [address] [place] [phone] Ti Lee MD ESOPHAGOGASTRODUODENOSCOPY BIOPSY 5 9:11 AM CDT - 5 12:17 PM CDT Hospital Encounter [facility] GI Lab [address] [place] [phone] Ti Lee MD Abdominal pain; Diarrhea, unspecified type Discharge Disposition: Discharge to home or self care 5 5:14 PM CDT - 5 9:26 PM CDT Emergency [facility] Emergency Department [address] [place] [phone] Abdominal pain, epigastric (Primary Dx) Discharge Disposition: Discharge to home or self care 5 Orders Only [facility] Gastroenterology at [address] [phone] Ti Lee MD Abdominal pain (Primary Dx); Diarrhea, unspecified type 5 Telephone [facility] Gastroenterology at [address] [phone] Ti Lee MD 11:57 AM CDT - 2:45 PM CDT Emergency [facility] Emergency Department [address] [place] [phone] Nausea vomiting and diarrhea (Primary Dx); Pulmonary nodule Discharge Disposition: Discharge to home or self care from Last 3 Months Surgical History Surgery Date Site/Laterality Comments TUBAL LIGATION ablation- Mar 2021 HYSTERECTOMY July 2022 CHOLECYSTECTOMY Apr 2023 ORAL SURGERY Mar 2021 Medical History Medical History Date Comments Asthma Social History Tobacco Use Types Packs/Day Years Used Date Smoking Tobacco: Never Smokeless Tobacco: Never Tobacco Cessation:Counseling Given: No AUDIT-C Answer Date Recorded Q1: How often do you have a drink containing alcohol? Never 09/27/2024 Q2: How many drinks containi ng alcohol do you have on a typical day when you are drinking? Patient does not drink Q3: How often do you have si x or more drinks on one occasion? Never 09/27/2024 Personal Safety Answer Date Recorded Have you ever been in or are you currently in a harmful physical or emotional relationship or is someone making you feel afraid or unsafe? Denies 09/27/2024 Comments No Sex and Gender Information Value Date Recorded Sex Assigned at Not on file Legal Sex Female 8:20 AM CDT Gender Identity Female 09/02/2024 12:12 PM CDT Sexual Orientation Not on file Obstetrics History Last Filed Vital Signs Vital Sign Reading Time Taken Comments Blood Pressure 115/79 09/27/2024 12:00 PM CDT Pulse 65 09/27/2024 12:05 PM CDT Temperature 36 C (96.8 F) 09/27/2024 11:25 AM CDT Respiratory Rate 17 09/27/2024 12:05 PM CDT Oxygen Saturation 100% 09/27/2024 12:00 PM CDT Inhaled Oxygen Concentration - - Weight 84.4 kg (186 lb) 09/27/2024 9:41 AM CDT Height 167.6 cm (5' 6) 09/23/2024 3:43 PM CDT Body Mass Index 30.02 09/23/2024 3:43 PM CDT Plan of Treatment Health Maintenance Due Date Last Done Comments Depression Screening 1990 Hepatitis C Screening 1990 Varicella Vaccines (1 of 2 - 13+ 2-dose series) 2002 Hepatitis B Screening 10/23/2007 Regular Well Visit/Exam 18-64 10/23/2007 HPV Vaccines (1 - 3-dose SCDM series) 2016 Covid-19 Vaccine (3 - season) 2023 08/21/2020, 07/31/2020 Influenza Vaccine (#1) 2024 , 01/07/2019, 12/29/2017, Additional history exists DTaP/Tdap/Td Vaccine (4 - Td or Tdap) 10/24/2029 10/25/2019, 01/20/2018, 04/03/2014 Pneumococcal vaccine <65 Aged Out No longer eligible based on patient's age to complete this topic Procedures Procedure Name Priority Date/Time Associated Diagnosis Comments SURGICAL PATHOLOGY Routine 09/27/2024 11:01 AM CDT Abdominal pain Diarrhea, unspecified type ENDO ADD ON COLON BIOPSY 025 10:34 AM CDT Abdominal pain Diarrhea, unspecified type COLON REMOVAL SNARE 09/27/2024 10:34 AM CDT Abdominal pain Diarrhea, unspecified type ESOPHAGOGASTRODUODENOSCOPY BIOPSY 09/27/2024 10:34 AM CDT Abdominal pain Diarrhea, unspecified type EGD 09/27/2024 10:27 AM CDT COLONOSCOPY 09/27/2024 10:26 AM CDT TROPONIN T HIGH-SENSITIVITY 2-HOUR Timed 09/23/2024 6:12 PM CDT CTA ABDOMEN PELVIS W WO CONTRAST ED Urgent/IP Urgent 09/23/2024 6:00 PM CDT URINALYSIS, MICROSCOPIC ONLY STAT 4:19 PM CDT URINALYSIS AND REFLEX TO MICROSCOPIC AND CULTURE STAT 09/23/2024 4:19 PM CDT COMPREHENSIVE METABOLIC PANEL STAT 4:05 PM CDT EGFR STAT 09/23/2024 4:05 PM CDT LIPASE STAT 09/23/2024 4:05 PM CDT DIFFERENTIAL AUTO STAT 09/23/2024 4:05 PM CDT TROPONIN T HIGH-SENSITIVITY SERIES (BASELINE, 2HR, 4HR, 6HR) STAT 09/23/2024 4:05 PM CDT CBC WITH AUTO DIFFERENTIAL STAT 09/23 4:05 PM CDT ECG 12-LEAD STAT 09/23/2024 4:[address] ABDOMEN PELVIS W CONTRAST ED 05/2024 12:45 PM CDT POCT HCG, URINE STAT 09/02/2024 11:47 AM CDT URINALYSIS, MICROSCOPIC ONLY STAT 05/2024 11:45 AM CDT URINALYSIS AND REFLEX TO MICROSCOPIC AND CULTURE STAT 09/02/2024 11:45 AM CDT EGFR STAT 09/02/2024 11:41 AM CDT DIFFERENTIAL AUTO STAT 09/02/2024 11:41 AM CDT LIPASE STAT 09/02/2024 11:41 AM CDT COMPREHENSIVE METABOLIC PANEL STAT 11:41 AM CDT CBC WITH AUTO DIFFERENTIAL STAT 09/02 11:41 AM CDT from Last 3 Months Results * Surgical pathology (09/27/2024 11:01 AM CDT) Tissue (Duodenum, Biopsy) 09/27/2024 11:01 AM CDT Tissue specimen (specimen) (Gastric/Stomach biopsy) 09/27/2024 11:02 AM CDT Tissue specimen (specimen) (Colon, Biopsy) 09/27/2024 11:08 AM CDT Tissue specimen (specimen) (Polyp(s), colon/colorectal, esophageal, gastric) 09/27/2024 11:11 AM CDT Narrative PATHOLOGY [facility] - 10/04/2024 9:04 PM CDT [facility] Department of Pathology [address] [place] [address] Note to Patients: This report may contain a detailed description of human tissue sent by a health care provider to the laboratory for pathologic evaluation. The content of this report is essential for diagnosis and may provide important critical findings. This information may be unfamiliar to patients to review without a medical professional present. It is advised that the patient review this report in the presence of a health care provider who can answer questions and explain the details. Final Report with Addendum Patient Name: TRAVIS MCCAULEY : 1990 (Age: 33) Gender: F Address: [address] [place] [address] Hospital #: [id number] Service: Gastro Location: Patient Type: [facility] Taken: 09/27/2024 Received: 09/27/2024 Accessioned: 09/27/2024 Reported: 10/04/2024 Physician(s): Foreign Coombs PTasha Diagnosis: A. Duodenal biopsy rule out Celiac disease - cold biopsy: - Duodenal mucosa with Jhoana's gland hyperplasia and chronic inflammation, suggestive of peptic injury - No histological evidence of celiac disease B. Gastric body and antrum rule out H. pylori - cold biopsy: - Antral mucosa with chemical/reactive gastropathy - Oxyntic mucosa with proton pump inhibitor effect - No H. pylori organisms are identified by H&E examination C. Random colon biopsy rule out microscopic colitis - cold biopsy: - Normal colonic mucosa - No evidence of colitis D. Ascending colon polyp - hot snare: - Prominent lymphoid aggregate with organized lymphoid tissue; colonic epithelium is not readily seen - No diagnostic morphologic evidence of lymphoma - See Comment Diagnosis Comment: Comment: If clinical concern remains for hematopoietic neoplasm, rebiopsy with fresh tissue for flow cytometry could be considered. Parts A, B, and C: Slides were reviewed by and diagnoses rendered by Dr. Lior Reno. Va Dong M.D. Report Electronically Reviewed and Signed Out By Va Dong M.D. 10/04/2024 21:04:04 Addenda: Addendum - 1 MH Addendum Comment There is no change to the diagnosis. SOX11 was examined on part D at the time of the diagnosis and is negative. Specimen(s) Received: A: Duodenal biopsy rule out Celiac disease - cold biopsy B: Gastric body and antrum rule out H. pylori - cold biopsy C: Random colon biopsy rule out microscopic colitis - cold biopsy D: Ascending colon polyp - hot snare Microscopic Description: Part D: H&E shows a round lymphoid aggregate with mostly small lymphocytes and germinal centers. Ki67 proliferation is less than 10% outside germinal centers which express BCL6 and CD10 and are negative for BCL2. BCL2, CD43, CD2, CD3, CD4, CD5, CD7 and CD8 show T cells. CD20, PAX5 and CD3 show T cell predominance. CD138 shows plasma cells. There is a normal kappa/lambda ratio of approximately 1:1 by DEMOND kappa and DEMOND lambda. There is no significant staining for CD30, EBV DEMOND, ALK1 or cyclinD1. CD21 and cD23 show LONG-TERM meshwork. Initial H&E of part D were also seen by Dr. Lior Reno. Parts A, B, and C: Slides were reviewed by and diagnoses rendered by Dr. Lior Reno. Part D: H&E shows a round lymphoid aggregate with mostly small lymphocytes and germinal centers. Ki67 proliferation is less than 10% outside germinal centers which express BCL6 and CD10 and are negative for BCL2. BCL2, CD43, CD2, CD3, CD4, CD5, CD7 and CD8 show T cells. CD20, PAX5 and CD3 show T cell predominance. CD138 shows plasma cells. There is a normal kappa/lambda ratio of approximately 1:1 by DEMOND kappa and DEMOND lambda. There is no significant staining for CD30, EBV DEMOND, ALK1 or cyclinD1. CD21 and cD23 show LONG-TERM meshwork. Initial H&E of part D were also seen by Dr. Lior Reno. Parts A, B, and C: Slides were reviewed by and diagnoses rendered by Dr. Lior Reno. Lior Reno MD Clinical History: The patient is a 33-year-old woman with abdominal pain and diarrhea. Operative procedure: Upper GI endoscopy and colonoscopy with biopsy. Gross Description Received in four formalin jars labeled with the patient's identifiers. A. Labeled duodenal biopsy rule out celiac disease-cold biopsy and consists of three isabel-pink tissue fragments ranging from 0.2-0.3 cm. Entirely submitted. Labeled A1. Jar 0. B. Labeled gastric body and antrum rule out H pylori-cold biopsy and consists of two isabel tissue fragments each measuring 0.6 cm. Entirely submitted. Labeled B1. Jar 0. C. Labeled random colon biopsy rule out microscopic colitis-cold biopsy and consists of multiple isabel tissue fragments measuring 0.8 x 0.7 x 0.2 cm in aggregate. Entirely submitted. Labeled C1. Jar 0. D. Labeled ascending colon polyp-hot snare and consists of a 0.5 cm isabel tissue fragment, which is entirely submitted. Labeled D1. Jar 0. jjb/09/27/2024 14:08 MAI Edwards, PA ([facility]) Microscopic slide review and interpretation for this case was performed at [facility] Department of Surgical Pathology, [address] [facility] [place], [place] [id number] [address] CLIA # [id number] The PAX-5 test was performed at [facility] Department of Surgical Pathology, [address] [place] [address]. The BCL-2 Oncoprotein test was performed at [facility] Department of Surgical Pathology, [address] [place] [address]. The Bcl-6 IHC test was performed at [facility] Department of Surgical Pathology, [address] [place] [address]. The CD10 test was performed at [facility] Department of Surgical Pathology, [address] [place] [address]. The CD21 test was performed at [facility] Department of Surgical Pathology, [address] [place] [address]. The CD23 test was performed at [facility] Department of Surgical Pathology, [address] [place] [address]. The Cyclin D1 test was performed at [facility] Department of Surgical Pathology, [address] [place] [address]. The CD43 test was performed at [facility] Department of Surgical Pathology, [address] [place] [address]. The [place] (Light chains)-IF test was performed at [facility] Department of Surgical Pathology, [address] [place] [address]. The Lambda (Light Chains) IF test was performed at [facility] Department of Surgical Pathology, [address] [place] [address]. The CD30 test was performed at [facility] Department of Surgical Pathology, [address] [place] [address]. The EBV DEMOND test was performed at [facility] Department of Surgical Pathology, [address] [place] [address]. The CD2 test was performed at [facility] Department of Surgical Pathology, [address] [place] [address]. The CD4 test was performed at [facility] Department of Surgical Pathology, [address] [place] [address]. The CD5 test was performed at [facility] Department of Surgical Pathology, [address] [place] [address]. The CD7 test was performed at [facility] Department of Surgical Pathology, [address] [place] [address]. The CD8 test was performed at [facility] Department of Surgical Pathology, [address] [place] [address]. The ALK-1 test was performed at [facility] Department of Surgical Pathology, [address] [place] [address]. The SOX11 test was performed at [facility], Department of Surgical Pathology, [address] [facility] [place], [place] [address]. us Ti Lee MD LAB PATHOLOGY ORDERABLES Final R esult PATHOLOGY H * EGD (09/27/2024 10:27 AM CDT) Anatomical Region Laterality Modality Other Narrative Procedure Note Ti Lee MD - 09/27/2024 10:27 AM CDT [facility] GI ENDOSCOPY Patient Name: Travis Mccauley Procedure Date: 09/27/2024 10:27 AM Date of : 1990 Admit Type: Outpatient Age: 33 Gender: Female Attending MD: Ti Lee M.D. Room: [facility] ENDOSCOPY ROOM 03 Note Status: Finalized Procedure: Upper GI endoscopy Indications: Abdominal pain Referring MD: Providers: Ti Lee M.D. Medicines: Monitored Anesthesia Care Complications: No immediate complications. Procedure: Pre-Anesthesia Assessment: - Prior to the procedure, a History and Physicalwas performed, and patient medications and allergieswere reviewed. The risks and benefits of the procedureand the sedation options and risks were discussed withthe patient. All questions were answered and informed consent was obtained. Patient identification and proposed procedure were verified. After reviewingthe risks and benefits, the patient was deemed in satisfactory condition to undergo the procedure.The anesthesia plan was to use monitored anesthesiacare (MAC). Immediately prior to administration of medications, the patient was re-assessed foradequacy to receive sedatives. The heart rate, respiratory rate, oxygen saturations, blood pressure, adequacyof pulmonary ventilation, and response to care were monitored throughout the procedure. The physical status of the patient was re-assessed after the procedure. The benefits, risks, and alternatives to theprocedure and sedation were discussed and informed consentwas obtained. The scope was passed under direct vision. The GIF-H180 upper endoscope was introduced through the mouth, and advanced to the second part of duodenum. The upper GI endoscopy was accomplished without difficulty. The patient tolerated the procedure well. Findings: The examined esophagus was normal. Diffuse mild inflammation characterized by erythema was found in the stomach. Biopsies were taken with a cold forceps for Helicobacterpylori testing. The examined duodenum was normal. Biopsies for histology were takenwith a cold forceps for evaluation of celiac disease. The cardia and gastric fundus were normal on retroflexion. The exam was otherwise without abnormality. Impression: - Normal esophagus. - Gastritis. Biopsied. - Normal examined duodenum. Biopsied. - The examination was otherwise normal. Recommendation: - Patient has a contact number available for emergencies. The signs and symptoms of potential delayed complications were discussed with thepatient. Return to normal activities tomorrow. Written discharge instructions were provided to thepatient. - Resume previous diet. - Increase omeprazole 40 mg p.o. b.i.d. for 2months, then decrease to once daily - Avoid NSAIDs. - Await pathology results. - Schedule GI clinic visit in 2-3 months. - Order CT enterography to rule out small bowel Crohn's. Ti Lee M.D. Ti Lee M.D. 09/27/2024 11:22:46 AM . Number of Addenda: 0 Note Initiated On: 09/27/2024 10:27 AM Recognized by the [employer] [employer] for promoting quality in endoscopy us Ti Lee MD ENDOSCOPY PROCEDURES Final Resul t * Colonoscopy (09/27/2024 10:26 AM CDT) Anatomical Region Laterality Modality Other Narrative Procedure Note Ti Lee MD - 09/27/2024 10:26 AM CDT [facility] GI ENDOSCOPY Patient Name: Travis Mccauley Procedure Date: 09/27/2024 10:26 AM Date of : 1990 Admit Type: Outpatient Age: 33 Gender: Female Attending MD: Ti Lee M.D. Room: [facility] ENDOSCOPY ROOM 03 Note Status: Finalized Procedure: Colonoscopy Indications: Chronic diarrhea alternating with constipation Referring MD: Providers: Ti Lee M.D. Medicines: Monitored Anesthesia Care Complications: No immediate complications. Estimated Blood Loss: Estimated blood loss: none. Procedure: Pre-Anesthesia Assessment: - Prior to the procedure, a History and Physicalwas performed, and patient medications and allergieswere reviewed. The risks and benefits of the procedureand the sedation options and risks were discussed withthe patient. All questions were answered and informed consent was obtained. Patient identification and proposed procedure were verified. After reviewingthe risks and benefits, the patient was deemed in satisfactory condition to undergo the procedure.The anesthesia plan was to use monitored anesthesiacare (MAC). Immediately prior to administration of medications, the patient was re-assessed foradequacy to receive sedatives. The heart rate, respiratory rate, oxygen saturations, blood pressure, adequacyof pulmonary ventilation, and response to care were monitored throughout the procedure. The physical status of the patient was re-assessed after the procedure. The benefits, risks and alternatives of theprocedure and sedation were discussed and informed consentwas obtained. All questions were answered. Please referto the signed informed consent document in the medical record. The scope was passed under direct vision.The Colonoscope was introduced through the anus and advanced to the terminal ileum. The colonoscopy was performed without difficulty. The patient tolerated the procedure well. The quality of the bowel preparation was adequate. Scope withdrawal time was10 minutes. Prep was administered in a split dose. Findings: The perianal and digital rectal examinations were normal. The terminal ileum appeared normal. A 7 mm polyp was found in the ascending colon. The polyp was sessile. The polyp was removed with a hot snare. Resection and retrieval were complete. Non-bleeding internal hemorrhoids were found during retroflexion. The hemorrhoids were small. The exam was otherwise without abnormality. Biopsies for histology were taken with a cold forceps from the right colon and left colon for evaluation of microscopic colitis. Impression: - The examined portion of the ileum was normal. - One 7 mm polyp in the ascending colon, removedwith a hot snare. Resected and retrieved. - Non-bleeding internal hemorrhoids. - The examination was otherwise normal. - Biopsies were taken with a cold forceps from the right colon and left colon for evaluation of microscopic colitis. Recommendation: - Patient has a contact number available for emergencies. The signs and symptoms of potential delayed complications were discussed with thepatient. Return to normal activities tomorrow. Written discharge instructions were provided to thepatient. - High fiber diet. - Continue present medications. - Await pathology results. - Repeat colonoscopy in 5 years if polypadenomatous, otherwise at age 44 for screening. - Schedule GI clinic visit in 2-3 months. Ti Lee M.D. Ti Lee M.D. 09/27/2024 11:24:47 AM . Number of Addenda: 0 Note Initiated On: 09/27/2024 10:26 AM Recognized by the [employer] for promoting quality in endoscopy Ti Lee MD ENDOSCOPY PROCEDURES Final Resul t * Troponin T high-sensitivity 2-hour (09/23/2024 6:12 PM CDT) Trop T hs <6 <=14 ng/L Comment: Interpretive Data For further hscTnT resources including the diagnostic algorithm and an aid in interpretation, copy and paste this link: https://nrl.testcatalog.org/show/hsTrop Current Interpretive Data last revised 2020. Testing performed by: [address] [id number] Trop T hs delta 0 ng/L JAS Comment:Testing performed by : [address] [id number] Trop T hs interp Insignificant JAS Comment:Testing performed by : [address] [id number] Blood 09/23/2024 6:12 PM CDT 09/23/2024 6:29 PM CDT Linda PAEZ LAB BLOOD ORDERABLES Final Resul t [facility] [address] [facility] Department of Laboratories [place], [place] [id number] * CTA Abdomen Pelvis (09/23/2024 6:00 PM CDT) Anatomical Region Laterality Modality Body N/A Computed Tomogra phy 09/23/2024 8:45 PM CDT Narrative 09/23/2024 8:53 PM CDT EXAM DESCRIPTION: CTA ABDOMEN PELVIS REASON FOR STUDY: Mesenteric ischemia, acute, pain for months, r/o bleed vs. mesenteric ischemia vs. other Mesenteric ischemia, acute, pain for months, r/o bleed vs. mesenteric ischemia vs. other TECHNIQUE: CTA scan of the abdomen and pelvis performed without and with intravenous and without oral contrast using helical scanning technique with dynamic intravenous contrast injection. Precontrast, arterial, and portal venous phase images of the abdomen and pelvis were acquired. Images reviewed with lung, soft tissue and bone windows. Reconstructed coronal and sagittal MPR images reviewed. All images stored on PACS. 3D MIP images rendered on scanning unit and reviewed at time of interpretation. Automated exposure control was used as a dose optimization technique for this examination. CONTRAST TYPE/DOSE: 100mL of IOVERSOL 350 MG IODINE/ML INTRAVENOUS SYRINGE injected COMPARISON: 09/03/2023 FINDINGS: VASCULATURE: No dissection, aneurysm, intramural hematoma, rupture, or penetrating atherosclerotic ulcer. No large vessel occlusion. CELIAC TRUNK: No flow limiting stenosis, dissection, or aneurysm. SUPERIOR MESENTERIC ARTERY: No flow limiting stenosis, dissection, or aneurysm. RIGHT RENAL ARTERY: No flow limiting stenosis, dissection, or aneurysm. LEFT RENAL ARTERY: No flow limiting stenosis, dissection, or aneurysm. INFERIOR MESENTERIC ARTERY: No flow limiting stenosis, dissection, or aneurysm. AORTA: No flow limiting stenosis, dissection, or aneurysm. ILIAC ARTERIES: No flow limiting stenosis, dissection, or aneurysm. LOWER CHEST: Unchanged 2 mm lateral right lower lobe pulmonary nodule. Mild scattered subsegmental atelectasis. No pleural effusion. Imaged portions of the heart and esophagus are within normal limits. LIVER: Normal size. No identified cystic or solid masses. The hepatic and portal veins are patent. GALLBLADDER: Prior cholecystectomy. BILE DUCTS: No intrahepatic or extrahepatic ductal dilatation. SPLEEN: Normal size. No focal lesions. PANCREAS: No identified cystic or solid masses. No significant calcifications. No adjacent inflammation or peripancreatic fluid collections. Pancreatic duct not dilated. ADRENALS: Normal. KIDNEYS/URINARY TRACT: No identified significant cystic or solid masses. No stones. No hydronephrosis or hydroureter. Symmetric enhancement. Normal bladder. GI: The stomach is normal. There is no small bowel or colonic obstruction, inflammation, ischemia, or perforation. The cecum is positioned in the pelvis. The appendix is normal. PERITONEUM: No ascites or free air. No lymphadenopathy. RETROPERITONEUM: No mass or adenopathy. REPRODUCTIVE: No significant abnormality. MUSCULOSKELETAL: No acute fractures or aggressive osseous lesion IMPRESSION: 1. No discrete CT findings to explain patient's abdominal pain. THIS IS AN ELECTRONICALLY VERIFIED FINAL REPORT 09/23/2024 8:53 PM - Electronically signed by Susan Zarco M.D. AT: AT Report ID: [id number] Reading Location: [id number] Procedure Note Susan Zarco MD - 09/23/2024 EXAM DESCRIPTION: CTA ABDOMEN PELVIS REASON FOR STUDY: Mesenteric ischemia, acute, pain for months, r/o bleedvs. mesenteric ischemia vs. other Mesenteric ischemia, acute, pain for months, r/o bleed vs. mesentericischemia vs. other TECHNIQUE: CTA scan of the abdomen and pelvis performed without and with intravenous and without oral contrast using helical scanning techniquewith dynamic intravenous contrast injection. Precontrast, arterial, and portal venous phase images of the abdomen and pelvis were acquired. Images reviewed with lung, soft tissue and bone windows. Reconstructed coronaland sagittal MPR images reviewed. All images stored on PACS. 3D MIP images rendered on scanning unit and reviewed at time of interpretation.Automated exposure control was used as a dose optimization technique for this examination. CONTRAST TYPE/DOSE: 100mL of IOVERSOL 350 MG IODINE/ML INTRAVENOUSSYRINGE injected COMPARISON: 09/03/2023 FINDINGS: VASCULATURE: No dissection, aneurysm, intramural hematoma, rupture, or penetrating atherosclerotic ulcer. No large vesselocclusion. CELIAC TRUNK: No flow limiting stenosis, dissection, or aneurysm. SUPERIOR MESENTERIC ARTERY: No flow limiting stenosis, dissection, or aneurysm. RIGHT RENAL ARTERY: No flow limiting stenosis, dissection, or aneurysm. LEFT RENAL ARTERY: No flow limiting stenosis, dissection, or aneurysm. INFERIOR MESENTERIC ARTERY: No flow limiting stenosis, dissection, or aneurysm. AORTA: No flow limiting stenosis, dissection, or aneurysm. ILIAC ARTERIES: No flow limiting stenosis, dissection, or aneurysm. LOWER CHEST: Unchanged 2 mm lateral right lower lobe pulmonary nodule.Mild scattered subsegmental atelectasis. No pleural effusion. Imaged portionsof the heart and esophagus are within normal limits. LIVER: Normal size. No identified cystic or solid masses. The hepaticand portal veins are patent. GALLBLADDER: Prior cholecystectomy. BILE DUCTS: No intrahepatic or extrahepatic ductal dilatation. SPLEEN: Normal size. No focal lesions. PANCREAS: No identified cystic or solid masses. No significant calcifications. No adjacent inflammation or peripancreatic fluidcollections. Pancreatic duct not dilated. ADRENALS: Normal. KIDNEYS/URINARY TRACT: No identified significant cystic or solid masses.No stones. No hydronephrosis or hydroureter. Symmetric enhancement. Normal bladder. GI: The stomach is normal. There is no small bowel or colonicobstruction, inflammation, ischemia, or perforation. The cecum is positioned in the pelvis. The appendix is normal. PERITONEUM: No ascites or free air. No lymphadenopathy. RETROPERITONEUM: No mass or adenopathy. REPRODUCTIVE: No significant abnormality. MUSCULOSKELETAL: No acute fractures or aggressive osseous lesion IMPRESSION: 1. No discrete CT findings to explain patient's abdominalpain. THIS IS AN ELECTRONICALLY VERIFIED FINAL REPORT 09/23/2024 8:53 PM - Electronically signed by Susan Zarco M.D. AT: AT Report ID: [id number] Reading Location: [place] [address] [facility] Facility[facility]ohailal[facility]rijalva MD IM CT PROCEDURES F inal Result * (ABNORMAL) Urinalysis reflex to microscopic and culture Urine (09/23/2024 4:19 PM CDT) Color, ur Yellow Yellow Comment:Testing performed by : [address] [address] Clarity, ur Clear Clear JAS Comment:Testing performed by : [address] [address] Specific gravity, ur 1.022 1.003 - 1.030 JAS Comment:Testing performed by : [address] [address] pH, urine 8.5 JAS Comment: Interpretive Data U rine pH is affected by diet, medications, systemic acid-base disturbances, and renal tubular function. pH may affect urinary stone formation. For example, urine pH below 6.0 may help reduce the tendency for calcium phosphate stones and pH greater than 6.0 may reduce the tendency for uric acid stone formation. Source: [employer] Current Interpretive Data was last revised on 2017 Testing performed by: [address] [place] [address] Protein, ur ql Trace(A) Negative JAS Comment:Testing performed by : [facility], [address] [place] [address], [place]., [address] Glucose, ur ql Negative Negative JAS Comment:Testing performed by : [address], [place]., [address] Ketones, ur Negative Negative JAS Comment:Testing performed by : [address], [place]., [address] Bilirubin, ur Negative Negative JAS Comment:Testing performed by : [address], [place]., [address] Blood, ur Negative Negative JAS Comment:Testing performed by : [address], [place]., [address] Urobilinogen, ur <2.0 <2.0 mg/dL JAS Comment:Testing performed by : [address], [place]., [address] Nitrite, ur Negative Negative JAS Comment:Testing performed by : [address], [place]., [address] Leukocyte esterase, ur Negative Negative JAS Comment:Testing performed by : [address], [place]., [address] UA reflex comment Reflex to microscopic UA will be performed. JAS Comment:Testing performed by : [address], [place]., [address] Urine 09/23/2024 4:19 PM CDT 09/23/2024 4:21 PM CDT us Linda PAEZ LAB MICROBIOLOGY - GENERAL ORDER MARLEE Final Result JAS [address] [facility] Department [place] [address] * (ABNORMAL) Urinalysis, microscopic only (09/23/2024 4:19 PM CDT) WBC, ur 0-5 0 - 5 /HPF Comment:Testing performed by : [address], [place]., [address] RBC, ur 3-5(A) 0 - 2 /HPF JAS Comment:Testing performed by : [address] [address] Epithelial cells, squamous, ur 21-50(A) 0 - 5 /HPF JAS Comment:Testing performed by : [address] [address] Culture Reflex Comment Reflex conditions for urine culture (WBC >10) not met. JAS Comment:Testing performed by : [facility], [address] [place] [address]., [address] Urine 09/23/2024 4:19 PM CDT 09/23/2024 4:21 PM CDT us Linda PAEZ LAB URINE ORDERABLES Final Resul t Performing Organization Address [facility] de Phone Number [address] [place] [address] * Troponin T high-sensitivity series (baseline, 2hr, 4hr, 6hr) (09/23/2024 4:05 PM CDT) Pathologist [facility] Trop T hs <6 <=14 ng/L Comment: Interpretive Data For further hscTnT resources including the diagnostic algorithm and an aid in interpretation, copy and paste this link: [email or web address].testcatalog.org/show/[email or web address] Current Interpretive Data last revised 2020. Testing performed by: [address] [address] Blood 09/23/2024 4:05 PM CDT 09/23/2024 4:08 PM CDT us Linda PAEZ LAB BLOOD ORDERABLES Final Resul t Performing Organization Address City/[facility] Co de Phone Number [address] [place] [address] * eGFR (09/23/2024 4:05 PM CDT) eGFR >90 >=60 mL/min/1. 73 m2 Comment: Interpretive Data Reference Interval Normal >/= 90 mL/min/1.73m2 Mildly decreased* 60 - 89 mL/min/1.73m2 Mildly to moderately decreased 45 - 59 mL/min/1.73m2 Moderately to severely decreased 30 - 44 mL/min/1.73m2 Severely decreased 15 - 29 mL/min/1.73m2 Kidney Failure < 15 mL/min/1.73m2 *Relative to young adult level Estimated glomerular filtration rate is determined by the 2020 CKD-EPI equation recommended by the National Kidney [employer] (A Unifying Approach to GFR Estimation: Recommendations of the NKF-ASK Task Force on Reassessing the Inclusion of Race in Diagnosing Kidney Disease, JASN 2020). The CKD-EPI equation should not be used for patients with unstable renal function and has not been validated in children and those over 70. Current interpretive data was last reviewed 2021. Testing performed by: [address] [address] Blood 09/23/2024 4:05 PM CDT 09/23/2024 4:08 PM CDT us Linda PAEZ LAB BLOOD ORDERABLES Final Resul t JAS [address] [facility] Department of Laboratories [place], [place] [id number] * Differential, auto (09/23/2024 4:05 PM CDT) Pathologist [facility] Neutrophil abs 4.38 1.50 - 6.50 K/cumm Comment:Testing performed by : [address] [address] Imm gran abs 0.01 0.00 - 0.10 K/cumm JAS Comment:Testing performed by : [address] [address] Lymphocyte abs 1.91 0.80 - 3.30 K/cumm JAS Comment:Testing performed by : [address] [address] Monocyte abs 0.60 0.20 - 0.80 K/cumm JAS Comment:Testing performed by : [address] [address] Eosinophil abs 0.47 0.00 - 0.50 K/cumm JAS Comment:Testing performed by : [address] [address] Basophil abs 0.08 0.00 - 0.10 K/cumm [facility] Comment:Testing performed by : [address] [address] Neutrophil pct 58.8 % [facility] Comment: Interpretive Data Percent cell count reference ranges are not reported, since discordance with absolute values may lead to misinterpretation of CBC data. Current Interpretive Data was last revised on 2017. Testing performed by: [address] [address] Imm gran pct 0.1 % [facility] Comment: Interpretive Data Percent cell count reference ranges are not reported, since discordance with absolute values may lead to misinterpretation of CBC data. Current Interpretive Data was last revised on 2017. Testing performed by: [address] [address] Lymphocyte pct 25.6 % [facility] Comment: Interpretive Data Percent cell count reference ranges are not reported, since discordance with absolute values may lead to misinterpretation of CBC data. Current Interpretive Data was last revised on 2017. Testing performed by: [address] [address] Monocyte pct 8.1 % [facility] Comment: Interpretive Data Percent cell count reference ranges are not reported, since discordance with absolute values may lead to misinterpretation of CBC data. Current Interpretive Data was last revised on 2017. Testing performed by: [address] [address] Eosinophil pct 6.3 % [facility] Comment: Interpretive Data Percent cell count reference ranges are not reported, since discordance with absolute values may lead to misinterpretation of CBC data. Current Interpretive Data was last revised on 2017. Testing performed by: [address] [address] Basophil pct 1.1 % [facility] Comment: Interpretive Data Percent cell count reference ranges are not reported, since discordance with absolute values may lead to misinterpretation of CBC data. Current Interpretive Data was last revised on 2017. Testing performed by: [address] [address] Blood 09/23/2024 4:05 PM CDT 09/23/2024 4:10 PM CDT us Linda PAEZ LAB BLOOD ORDERABLES Final Resul t JAS [address] [facility] Department [place] [address] * CBC with auto differential (09/23/2024 4:05 PM CDT) WBC 7.45 3.80 - 9.90 K/cumm Comment:Testing performed by : [address] [address] Hgb 13.4 11.9 - 15.5 g/dL JAS Comment:Testing performed by : [address] [address] Hct 39.8 35.6 - 45.5 % JAS Comment:Testing performed by : [address] [address] Plt 178 150 - 400 K/cumm JAS Comment:Testing performed by : [address] [address] MPV 11.1 9.1 - 12.3 fL JAS Comment:Testing performed by : [address] [address] RBC 4.58 3.90 - 5.20 M/cumm JAS Comment:Testing performed by : [address] [address] MCV 86.9 81.3 - 96.4 fL JSA Comment:Testing performed by : [address] [address] MCH 29.3 27.1 - 33.3 pg JAS MAHMOOD Comment:Testing performed by : [address] [address] MCHC 33.7 32.3 - 35.7 g/dL JAS MAHMOOD Comment:Testing performed by : [address] [address] RDW CV 12.0 11.1 - 14.9 % JAS MAHMOOD Comment:Testing performed by : [address] [address] RDW SD 38.2 35.7 - 48.1 fL JAS MAHMOOD Comment:Testing performed by : [address] [address] NRBC abs 0.00 0.00 - 0.01 K/cumm JAS MAHMOOD Comment:Testing performed by : [address] [address] Blood Venous blood specimen / Unknown 09/23/2024 4:05 PM CDT 09/23/2024 4:10 PM CDT us [employer] LAB BLOOD ORDERABLES Final Resul t [address] [email or web address] [address] * Lipase (09/23/2024 4:05 PM CDT) Lipase 38 10 - 99 Units/L Comment:Testing performed by : [address] [address] Blood 09/23/2024 4:05 PM CDT 09/23/2024 4:08 PM CDT Executive Caddie PA LAB BLOOD ORDERABLES Final Resul t JANIE[address] [place] [address] * (ABNORMAL) Comprehensive metabolic panel (09/23/2024 4:05 PM CDT) Sodium 140 135 - 145 mmol/L Comment:Testing performed by : [address], [place]., [address] Potassium, pl 3.2(L) 3.3 - 4.9 mmol/L JAS Comment:Testing performed by : [address], [place]., [address] Chloride 102 97 - 110 mmol/L JAS Comment:Testing performed by : [address], [place]., [address] CO2 28 22 - 32 mmol/L JAS Comment:Testing performed by : [address], [place]., [address] Anion gap 10 2 - 15 mmol/L JAS Comment:Testing performed by : [address] [address] BUN 15 6 - 25 mg/dL JAS Comment:Testing performed by : [address], [place]., [address] Creatinine 0.70 0.60 - 1.10 mg/dL JAS Comment:Testing performed by : [address] [address] Glucose 95 70 - 199 mg/dL [facility] Comment: Interpretive Data Fasting glucose >/= 126 mg/dl is diagnostic for diabetes. Fasting is defined as no caloric intake for at least 8 hours. Fasting glucose between 100 mg/dl to 125 mg/dl is diagnostic of prediabetes. In a patient with classic symptoms of hyperglycemia or hyperglycemic crisis, a random glucose >/= 200 mg/dl is diagnostic for diabetes. In the absence of unequivocal hyperglycemia, results should be confirmed by repeat testing. The classification and Diagnosis of Diabetes Diabetes Care 202; 46: S19-S40. Current interpretive data was last revised 2022. Testing performed by: [address] [address] Calcium 9.5 8.5 - 10.3 mg/dL JAS Comment:Testing performed by : [address] [address] Bilirubin, total 0.4 0.1 - 1.2 mg/dL JAS Comment:Testing performed by : [address] [address] Protein, pl 7.3 6.5 - 8.5 g/dL JAS Comment:Testing performed by : [address] [address] Albumin 4.4 3.5 - 5.0 g/dL JAS Comment:Testing performed by : [address] [address] Alk phos 84 40 - 130 Units/L JAS Comment:Testing performed by : [address], [address] ALT 28 7 - 45 Units/L JAS Comment:Testing performed by : [address] [address] AST 26 10 - 45 Units/L JAS Comment:Testing performed by : [address] [address] Blood 09/23/2024 4:05 PM CDT 09/23/2024 4:08 PM CDT us Linda PAEZ LAB BLOOD ORDERABLES Final Resul t JAS [facility] Department [place] [address] * ECG 12 lead (09/23/2024 4:01 PM CDT) Ventricular Rate EKG/Min 62 BPM [facility] Atrial Rate 62 BPM [facility] ME-Interval (MSEC) 146 ms [facility] QRS-Interval (MSEC) 72 ms [facility] QT-Interval (MSEC) 464 ms [facility] QTc 470 ms [facility] P Lee 0 degrees [facility] R Lee 53 degrees [facility] T Lee 56 degrees [facility] Diagnosis Normal sinus rhythm Normal ECG No previous ECGs available Confirmed by SULTAN PETERSON M.D. ([id number]) on 09/23/2024 9:53:47 PM [facility] 09/23/2024 4:01 PM CDT 09/23/2024 9:53 PM CDT us Linda PAEZ ECG ORDERABLES Final Result [employer] [facility] [place] * CT Abdomen Pelvis W Contrast (09/02/2024 12:45 PM CDT) Anatomical Region Laterality Modality Body N/A Computed Tomogra phy 09/02/2024 1:50 PM CDT Narrative 09/02/2024 2:01 PM CDT EXAM DESCRIPTION: CT ABDOMEN PELVIS W CONTRAST REASON FOR STUDY: Abdominal pain, acute, nonlocalized Abdominal pain, acute, nonlocalized Sx hx lap chad and hysterectomy TECHNIQUE: CT scan of the abdomen and pelvis performed with intravenous and without oral contrast using helical scanning technique with dynamic intravenous contrast injection. Reconstructed coronal and sagittal MPR images reviewed. All images stored on PACS. Automated exposure control was used as a dose optimization technique for this examination. CONTRAST TYPE/DOSE: 100mL of IOVERSOL 350 MG IODINE/ML INTRAVENOUS SYRINGE injected via intravenous COMPARISON: None REFERENCE: Per ACR white paper recommendations, unless otherwise specified no follow-up imaging is recommended for incidental renal and adrenal lesions per consensus recommendations based on imaging criteria. Further lab evaluation could be pursued based on clinical findings. FINDINGS: LOWER CHEST: 3 mm lateral right lower lobe pulmonary nodule (2; 19). LIVER: No concerning lesions. GALLBLADDER/BILE DUCTS: Gallbladder is surgically absent. SPLEEN: Normal size. No focal concerning lesions. PANCREAS: No significant ductal dilatation or discrete lesion. ADRENALS: No measurable nodule. KIDNEYS/URETERS: No hydronephrosis. No obstructing nephroureterolithiasis. BLADDER/URINARY: No significant wall thickening. REPRODUCTIVE: Status post hysterectomy. Crenulated mildly thick-walled cystic structure within the right ovary which may reflect a corpus luteum. No concerning adnexal lesion, although the ovaries are poorly evaluated by CT. GASTROINTESTINAL: Liquid stool throughout the proximal colon. Normal-appearing appendix. A few mildly distended fluid-filled small bowel loops without significant wall thickening. Small rounded hyperdensity layering within the proximal stomach likely ingested material (5 image 63).). LYMPH NODES: No pathologically enlarged abdominal or pelvic lymphadenopathy. PERITONEUM/RETROPERITONEUM: No free air. Trace free fluid within the pelvis which may be physiologic or reactive. No organized drainable fluid collection. VASCULATURE: No abdominal aortic aneurysm. MUSCULOSKELETAL: No aggressive appearing osseous lesions. No acute osseous abnormality. OTHER: No significant abnormality. IMPRESSION: Fluid-filled small bowel loops with liquid stool throughout the colon which can be seen with nonspecific diarrheal illness. Trace free fluid within the pelvis which may be physiologic or reactive. No organized drainable fluid collection. A 3 mm right lower lobe pulmonary nodule which is likely post infectious/inflammatory in this young patient. THIS IS AN ELECTRONICALLY VERIFIED FINAL REPORT 09/02/2024 2:01 PM - Electronically signed by Tacos Jack M.D. NS: NS Report ID: [id number] Reading Location: [id number] Procedure Note Tacos Jack MD - 09/02/2024 EXAM DESCRIPTION: CT ABDOMEN PELVIS W CONTRAST REASON FOR STUDY: Abdominal pain, acute, nonlocalized Abdominal pain, acute, nonlocalized Sx hx lap chad and hysterectomy TECHNIQUE: CT scan of the abdomen and pelvis performed with intravenousand without oral contrast using helical scanning technique with dynamic intravenous contrast injection. Reconstructed coronal and sagittal MPRimages reviewed. All images stored on PACS. Automated exposure control was usedas a dose optimization technique for this examination. CONTRAST TYPE/DOSE: 100mL of IOVERSOL 350 MG IODINE/ML INTRAVENOUSSYRINGE injected via intravenous COMPARISON: None REFERENCE: Per ACR white paper recommendations, unless otherwise specifiedno follow-up imaging is recommended for incidental renal and adrenal lesionsper consensus recommendations based on imaging criteria. Further labevaluation could be pursued based on clinical findings. FINDINGS: LOWER CHEST: 3 mm lateral right lower lobe pulmonary nodule(2; 19). LIVER: No concerning lesions. GALLBLADDER/BILE DUCTS: Gallbladder is surgically absent. SPLEEN: Normal size. No focal concerning lesions. PANCREAS: No significant ductal dilatation or discrete lesion. ADRENALS: No measurable nodule. KIDNEYS/URETERS: No hydronephrosis. No obstructingnephroureterolithiasis. BLADDER/URINARY: No significant wall thickening. REPRODUCTIVE: Status post hysterectomy. Crenulated mildly thick-walled cystic structure within the right ovary which may reflect a corpus luteum.No concerning adnexal lesion, although the ovaries are poorly evaluated byCT. GASTROINTESTINAL: Liquid stool throughout the proximal colon. Normal-appearing appendix. A few mildly distended fluid-filled smallbowel loops without significant wall thickening. Small rounded hyperdensity layering within the proximal stomach likely ingested material (5 image63).). LYMPH NODES: No pathologically enlarged abdominal or pelviclymphadenopathy. PERITONEUM/RETROPERITONEUM: No free air. Trace free fluid within thepelvis which may be physiologic or reactive. No organized drainable fluid collection. VASCULATURE: No abdominal aortic aneurysm. MUSCULOSKELETAL: No aggressive appearing osseous lesions. No acuteosseous abnormality. OTHER: No significant abnormality. IMPRESSION: Fluid-filled small bowel loops with liquid stool throughout the colonwhich can be seen with nonspecific diarrheal illness. Trace free fluid within the pelvis which may be physiologic or reactive.No organized drainable fluid collection. A 3 mm right lower lobe pulmonary nodule which is likely post infectious/inflammatory in this young patient. THIS IS AN ELECTRONICALLY VERIFIED FINAL REPORT 09/02/2024 2:01 PM - Electronically signed by Tacos Jack M.D. NS: NS Report ID: [id number] Reading Location: [place] [address] us Linda PAEZ IMG CT PROCEDURES Final Result * POCT hCG, urine (09/02/2024 11:47 AM CDT) HCG, ur, POC Negative Negative Lot Number [id number] QC Backgroud Clear Acceptable QC Control Line Acceptable Urine 09/02/2024 11:4 7 AM CDT Linda PAEZ POINT OF CARE TEST ORDERABLES Fi nal Result * (ABNORMAL) Urinalysis reflex to microscopic and culture Urine (09/02/2024 11:45 AM CDT) Color, ur Yellow Yellow Comment:Testing performed by : [facility], [address] [place] [address]., [address] Clarity, ur Clear Clear JAS MAHMOOD Comment:Testing performed by : [address] [address] Specific gravity, ur 1.034(H) 1.003 - 1.030 JAS Comment:Testing performed by : [address] [address] pH, urine 5.5 JAS Comment: Interpretive Data U rine pH is affected by diet, medications, systemic acid-base disturbances, and renal tubular function. pH may affect urinary stone formation. For example, urine pH below 6.0 may help reduce the tendency for calcium phosphate stones and pH greater than 6.0 may reduce the tendency for uric acid stone formation. Source: [facility] [employer] Current Interpretive Data was last revised on 2017 Testing performed by: [address] [address] Protein, ur ql Trace(A) Negative JAS Comment:Testing performed by : [address] [address] Glucose, ur ql Negative Negative JAS Comment:Testing performed by : [address] [address] Ketones, ur 1+(A) Negative JAS Comment:Testing performed by : [address] [address] Bilirubin, ur Negative Negative JAS Comment:Testing performed by : [address] [address] Blood, ur 1+(A) Negative JAS Comment:Testing performed by : [address] [address] Urobilinogen, ur <2.0 <2.0 mg/dL JAS Comment:Testing performed by : [address] [address] Nitrite, ur Negative Negative JAS Comment:Testing performed by : [address] [address] Leukocyte esterase, ur 1+(A) Negative JAS Comment:Testing performed by : [address] [address] UA reflex comment Reflex to microscopic UA will be performed. JAS MAHMOOD Comment:Testing performed by : [address] [address] Urine 09/02/2024 11:4 5 AM CDT 09/02/2024 11:55 AM CDT Linda PAEZ LAB MICROBIOLOGY - GENERAL ORDER MARLEE Final Result Performing Organization Address City/[facility]/ZIP Co de Phone Number JAS [address] [place] [address] * (ABNORMAL) Urinalysis, microscopic only (09/02/2024 11:45 AM CDT) WBC, ur 0-5 0 - 5 /HPF Comment:Testing performed by : [facility], [address] [place] [address]., [address] RBC, ur 6-10(A) 0 - 2 /HPF JAS Comment:Testing performed by : [address] [address] Epithelial cells, squamous, ur 21-50(A) 0 - 5 /HPF JAS Comment:Testing performed by : [address] [address] Mucous, ur Present(A) JAS Comment:Testing performed by : [address] [address] Culture Reflex Comment Reflex conditions for urine culture (WBC >10) not met. JAS Comment:Testing performed by : [address] [address] Urine 09/02/2024 11:4 5 AM CDT 09/02/2024 11:55 AM CDT Linda PAEZ LAB URINE ORDERABLES Final Resul t Performing Organization Address City/[facility]/ZIP Co de Phone Number JAS [facility] [place] [address] * eGFR (09/02/2024 11:41 AM CDT) eGFR >90 >=60 mL/min/1. 73 m2 Comment: Interpretive Data Reference Interval Normal >/= 90 mL/min/1.73m2 Mildly decreased* 60 - 89 mL/min/1.73m2 Mildly to moderately decreased 45 - 59 mL/min/1.73m2 Moderately to severely decreased 30 - 44 mL/min/1.73m2 Severely decreased 15 - 29 mL/min/1.73m2 Kidney Failure < 15 mL/min/1.73m2 *Relative to young adult level Estimated glomerular filtration rate is determined by the 2020 CKD-EPI equation recommended by the National Kidney Foundation (A Unifying Approach to GFR Estimation: Recommendations of the NKF-ASK Task Force on Reassessing the Inclusion of Race in Diagnosing Kidney Disease, JASN 2020). The CKD-EPI equation should not be used for patients with unstable renal function and has not been validated in children and those over 70. Current interpretive data was last reviewed 2021. Testing performed by: [address] [address] Blood 09/02/2024 11:4 1 AM CDT 09/02/2024 11:55 AM CDT us Linda PAEZ LAB BLOOD ORDERABLES Final Resul t JAS MAHMOOD [address] [facility] Department of Laboratories [place], [place] [id number] * (ABNORMAL) Differential, auto (09/02/2024 11:41 AM CDT) Neutrophil abs 10.39(H) 1.50 - 6.50 K/cumm Comment:Testing performed by : [address] [address] Imm gran abs 0.05 0.00 - 0.10 K/cumm JAS MAHMOOD Comment:Testing performed by : [address] [address] Lymphocyte abs 0.39(L) 0.80 - 3.30 K/cumm JAS MAHMOOD Comment:Testing performed by : [address] [address] Monocyte abs 0.68 0.20 - 0.80 K/cumm JAS Comment:Testing performed by : [address] [address] Eosinophil abs 0.04 0.00 - 0.50 K/cumm JAS Comment:Testing performed by : [address] [address] Basophil abs 0.03 0.00 - 0.10 K/cumm JAS Comment:Testing performed by : [address] [address] Neutrophil pct 89.7 % [facility] Comment: Interpretive Data Percent cell count reference ranges are not reported, since discordance with absolute values may lead to misinterpretation of CBC data. Current Interpretive Data was last revised on 2017. Testing performed by: [address] [address] Imm gran pct 0.4 % [facility] Comment: Interpretive Data Percent cell count reference ranges are not reported, since discordance with absolute values may lead to misinterpretation of CBC data. Current Interpretive Data was last revised on 2017. Testing performed by: [address] [address] Lymphocyte pct 3.4 % [facility] Comment: Interpretive Data Percent cell count reference ranges are not reported, since discordance with absolute values may lead to misinterpretation of CBC data. Current Interpretive Data was last revised on 2017. Testing performed by: [address] [address] Monocyte pct 5.9 % [facility] Comment: Interpretive Data Percent cell count reference ranges are not reported, since discordance with absolute values may lead to misinterpretation of CBC data. Current Interpretive Data was last revised on 2017. Testing performed by: [address] [address] Eosinophil pct 0.3 % [facility] Comment: Interpretive Data Percent cell count reference ranges are not reported, since discordance with absolute values may lead to misinterpretation of CBC data. Current Interpretive Data was last revised on 2017. Testing performed by: [address] [address] Basophil pct 0.3 % [facility] Comment: Interpretive Data Percent cell count reference ranges are not reported, since discordance with absolute values may lead to misinterpretation of CBC data. Current Interpretive Data was last revised on 2017. Testing performed by: [address] [address] Blood 09/02/2024 11:4 1 AM CDT 09/02/2024 11:55 AM CDT us Linda PAEZ LAB BLOOD ORDERABLES Final Resul t [facility] [address] [facility] Department [place] [address] * (ABNORMAL) CBC with auto differential (09/02/2024 11:41 AM CDT) WBC 11.58(H) 3.80 - 9.90 K/cumm Comment:Testing performed by : [address] [address] Hgb 15.0 11.9 - 15.5 g/dL JAS Comment:Testing performed by : [address] [address] Hct 45.2 35.6 - 45.5 % JAS Comment:Testing performed by : [address] [address] Plt 192 150 - 400 K/cumm JAS Comment:Testing performed by : [address] [address] MPV 11.0 9.1 - 12.3 fL JAS Comment:Testing performed by : [address] [address] RBC 5.18 3.90 - 5.20 M/cumm JAS Comment:Testing performed by : [address] [address] MCV 87.3 81.3 - 96.4 fL JAS Comment:Testing performed by : [address] [address] MCH 29.0 27.1 - 33.3 pg JAS MAHMOOD Comment:Testing performed by : [facility], [address] [place] [address]., [address] MCHC 33.2 32.3 - 35.7 g/dL JAS MAHMOOD Comment:Testing performed by : [address] [address] RDW CV 12.4 11.1 - 14.9 % JAS MAHMOOD Comment:Testing performed by : [address] [address] RDW SD 39.7 35.7 - 48.1 fL JAS MAHMOOD Comment:Testing performed by : [address] [address] NRBC abs 0.00 0.00 - 0.01 K/cumm JAS MAHMOOD Comment:Testing performed by : [address] [address] Blood 09/02/2024 11:4 1 AM CDT 09/02/2024 11:55 AM CDT us Linda Evaristo PA LAB BLOOD ORDERABLES Final Resul t Performing Organization Address City/[facility]/ZIP Co de Phone Number [address] [email or web address] [address] * Lipase (09/02/2024 11:41 AM CDT) Lipase 23 10 - 99 Units/L Comment:Testing performed by : [address] [address] Blood 09/02/2024 11:4 1 AM CDT 09/02/2024 11:55 AM CDT us Wikiswaye PA LAB BLOOD ORDERABLES Final Resul t Performing Organization Address City/[facility]/ZIP Co de Phone Number JANIE[address] [address] * Comprehensive metabolic panel (09/02/2024 11:41 AM CDT) Sodium 140 135 - 145 mmol/L Comment:Testing performed by : [address], [place]., [address] Potassium, pl 3.7 3.3 - 4.9 mmol/L JAS Comment:Testing performed by : [address], [place]., [address] Chloride 102 97 - 110 mmol/L JAS Comment:Testing performed by : [address], [place]., [address] CO2 27 22 - 32 mmol/L JAS Comment:Testing performed by : [address], [place]., [address] Anion gap 11 2 - 15 mmol/L [facility] Comment:Testing performed by : [address], [place]., [address] BUN 19 6 - 25 mg/dL [facility] Comment:Testing performed by : [address], [place]., [address] Creatinine 0.68 0.60 - 1.10 mg/dL [facility] Comment:Testing performed by : [address], [place]., [address] Glucose 108 70 - 199 mg/dL [facility] Comment: Interpretive Data Fasting glucose >/= 126 mg/dl is diagnostic for diabetes. Fasting is defined as no caloric intake for at least 8 hours. Fasting glucose between 100 mg/dl to 125 mg/dl is diagnostic of prediabetes. In a patient with classic symptoms of hyperglycemia or hyperglycemic crisis, a random glucose >/= 200 mg/dl is diagnostic for diabetes. In the absence of unequivocal hyperglycemia, results should be confirmed by repeat testing. The classification and Diagnosis of Diabetes Diabetes Care 2021; 46: S19-S40. Current interpretive data was last revised 2022. Testing performed by: [address] [address] Calcium 10.1 8.5 - 10.3 mg/dL JAS Comment:Testing performed by : [address] [address] Bilirubin, total 0.7 0.1 - 1.2 mg/dL JAS Comment:Testing performed by : [address] [address] Protein, pl 8.1 6.5 - 8.5 g/dL JAS Comment:Testing performed by : [facility], [address] [place] [address]., [address] Albumin 4.8 3.5 - 5.0 g/dL JAS Comment:Testing performed by : [facility], [address] [place] [address]., [address] Alk phos 86 40 - 130 Units/L JAS Comment:Testing performed by : [address] [address] ALT 41 7 - 45 Units/L JAS Comment:Testing performed by : [address] [address] AST 23 10 - 45 Units/L JAS Comment:Testing performed by : [address] [address] Blood 09/02/2024 11:4 1 AM CDT 09/02/2024 11:55 AM CDT us Linda PAEZ LAB BLOOD ORDERABLES Final Resul t JAS [facility] [facility] [place] [address] from Last 3 Months Insurance [facility] CHOICE PLUS [address] ACCESS CHOICE [facility] CHOICE PLUS [facility] ACCESS CHOICE 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
--- OUTSIDE RECORDS SUMMARY | 2024-10-30 09:56 | XMS_ITS | Clinical Summary ---
Author Organization [facility] Address [address] [place] [address] Phone Care Team Providers Care Church Warden Name Role Phone Tameka Gregory Primary Care Provider [phone] Allergies No known active allergies Medications amoxicillin (AMOXIL) 875 mg tablet Take 875 mg by mouth every 12 hours. Active FLUoxetine (PROzac) 40 mg capsule Take 40 mg by mouth daily. Active Immunizations Immunization Administration Dates Next Due ([facility])(12 YR UP) COVID-19 VACCINE - EMERGENCY USE AUTHORIZATION, MRNA, [id number](PF) 30 MCG/0.3 ML IM SUSP 08/21/2020,07/31/2020 Influenza Seasonal Unspecified Formulation IM Social History Tobacco Use Types Packs/Day Years Used Date Smoking Tobacco: Never Assessed Comments Unknown Sex and Gender Information Value Date Recorded Sex Assigned at Not on file Legal Sex Female 7:[address] [employer] Gender Identity Not on file Sexual Orientation Not on file Last Filed Vital Signs Vital Sign Reading Time Taken Comments Blood Pressure 120/75 03/31/2021 7:[address] DESIGNER Pulse 54 03/31/2021 7:[address] DESIGNER Temperature 36.2 C (97.1 F) 03/31/2021 7:[address] DESIGNER Respiratory Rate 16 03/31/2021 7:[address] DESIGNER Oxygen Saturation 97% 03/31/2021 7:[address] DESIGNER Inhaled Oxygen Concentration - - Weight 94.5 kg (208 lb 6.4 oz) 03/30/2021 6:[address] DESIGNER Height 167.6 cm (5' 6) 03/30/2021 4:[address] DESIGNER Body Mass Index 33.64 03/30/2021 4:[address] DESIGNER Plan of Treatment Health Maintenance Due Date Last Done Comments HPV VACCINES (1 - 3-dose series) 2004 DTAP/TDAP/TD VACCINES (1 - Tdap) 2008 HEPATITIS B VACCINES (1 of 3 - 19+ 3-dose series) 2008 HPV/Cotest (21-29) 2010 CERVICAL CANCER SCREENING 10/23/2019 HPV/Cotest (30-65) 10/23/2019 PAP SMEAR 10/23/2019 COVID-19 Vaccine (3 - 2023- season) 2023, 07/31/2020 INFLUENZA VACCINE (#1) 2024 01/08/2021 Insurance [facility] [employer] CHOICE [employer] [place] RX [facility] [employer] RX [employer] (INTERNAL) [facility] [employer] RX [employer] PL[employer] (INTERNAL) [facility] [employer] [facility] Advance Directives For more information, please contact: [phone] * Full Code (Latest Code Status on File) Date Activated Date Inactivated Comments 03/29/2021 10:11 PM 03/31/2021 5:29 PM Care Teams Church Warden Relationship Specialty Start Date End Date Tameka Gregory PA PCP - General Physician Gis Specialist 03/29/21
--- OUTSIDE RECORDS SUMMARY | 2024-10-30 09:56 | XMS_ITS | Referral Summary ---
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 Role Phone Tmaeka Gregory Tarah PAEZ Primary Care Pr ovider Encounters Date Type Department Care Team Description 5 Orders Only [facility] Gastroenterology at [address] [place] [phone] Ti Lee MD Abdominal pain (Primary Dx); Diarrhea, unspecified type 5 Orders Only [facility] Gastroenterology at [address] [place] [phone] Ti Lee MD Abdominal pain (Primary Dx); Diarrhea, unspecified type 5 Results Follow-Up [facility] Gastroenterology at [address] [place] [phone] Ti Lee MD Surgical pathology 5 Orders Only [facility] Gastroenterology at [address] [place] [phone] iT Lee MD 5 10:35 AM CDT Anesthesia Event [facility] [address] [place] [address] Eduardo Ochoa MD 5 10:30 AM CDT - 5 11:00 AM CDT Surgery [facility] [address] [place] [phone] Ti Lee MD ESOPHAGOGASTRODUODENOSCOPY BIOPSY 5 9:11 AM CDT - 5 12:17 PM CDT Hospital Encounter [facility] [address] [place] [phone] Ti Lee MD Abdominal pain; Diarrhea, unspecified type Discharge Disposition: Discharge to home or self care 5 5:14 PM CDT - 5 9:26 PM T Emergency [facility] Emergency Department [address] [place] [phone] Abdominal pain, epigastric (Primary Dx) Discharge Disposition: Discharge to home or self care 5 Orders Only [facility] Gastroenterology at [address] [place] [phone] Ti Lee MD Abdominal pain (Primary Dx); Diarrhea, unspecified type 5 Telephone [facility] Gastroenterology at [address] [phone] Ti Lee MD 5 11:57 AM CDT - 5 2:45 PM T Emergency [facility] Emergency Department [address] [place] [phone] Nausea vomiting and diarrhea (Primary Dx); Pulmonary nodule Discharge Disposition: Discharge to home or self care from Last 3 Months Allergies No known active allergies Medications phentermine (ADIPEX-P) 37.5 mg tablet Take 1 tablet (37.5 mg total) by mouth daily Active valACYclovir (VALTREX) 1 gram tablet Two tabs p.o. every 12 hours as needed for cold sore breakthrough Active dicyclomine (BENTYL) 20 mg tabletIndicatio ns:Enterocoliti s Take 1 tablet (20 mg total) by mouth 2 (two) times a day 20 tablet Active omeprazole (PriLOSEC) 40 mg capsule Take 1 capsule (40 mg total) by mouth 2 (two) times a day before breakfast and dinner 60 capsule 3 Active Active Problems Problem Noted Date Diagnosed Date Abdominal pain 09/12/2024 Diarrhea 09/12/2024 Social History Tobacco Use Types Packs/Day Years [...] PM CDT Sexual Orientation Not on file Last Filed [...] 09/23/2024 3:43 PM CDT Plan of Treatment Not on file Procedures Procedure Name Priority Date/Time Associated Diagnosis [...] gastric) 09/27/2024 11:11 AM CDT Narrative PATHOLOGY [facility] [place] - 10/04/2024 9:04 PM CDT [facility] Department of Pathology [address] [place] [address] Note to Patients: This report may contain [...] : 1990 (Age: 33) Gender: F Address: [address] [place] [address] [address] [place] [facility] #: [id number] Service: Gastro Location: Patient Type: [facility] OUTPATIENT Taken: 09/27/2024 Received: 09/27/2024 Accessioned: 09/27/2024 Reported: 10/04/2024 Physician(s): [facility] P.[facility]. Diagnosis: A. Duodenal biopsy rule out Celiac [...] by and diagnoses rendered by Dr. Lior eRno. Va Dong M.D. Report Electronically Reviewed and [...] ALK1 or cyclinD1. CD21 and cD23 show MCFP meshwork. Initial H&E of part D were [...] ALK1 or cyclinD1. CD21 and cD23 show MCFP meshwork. Initial H&E of part D were [...] Jar 0. jjb/09/27/2024 14:08 MAI Edwards, PA [facility] Microscopic slide review and interpretation for this case was performed at [facility] Department of Surgical Pathology, [address] [facility], [place] [id number] Garza StreetIA # [id number] The PAX-5 test was performed at [facility] Department of Surgical Pathology, [address] [place] [address]. The BCL-2 Oncoprotein test was performed at [facility] Department of Surgical Pathology, [address] [place] [address]. The Bcl-6 IHC test was performed at [facility] Department of Surgical Pathology, [address] [place] [address]. The CD10 test was performed at [facility] Department of Surgical Pathology, [address] [place] [address]. The CD21 test was performed at [facility] Department of Surgical Pathology, [address] [place] [address]. The CD23 test was performed at [facility] Department of Surgical Pathology, [address] [place] [address]. The Cyclin D1 test was performed at [facility] Department of Surgical Pathology, [address] [place] [address]. The CD43 test was performed at [facility] Department of Surgical Pathology, [address] [place] [address]. The Overbrook (Light chains)-IF test was performed at [facility] Department of Surgical Pathology, [address] [place] [address]. The Lambda (Light Chains) IF test was performed at [facility] Department of Surgical Pathology, [address] [place] [address]. The CD30 test was performed at [facility] Department of Surgical Pathology, [address] [place] [id number]. The EBV DEMOND test was performed at [facility] Department of Surgical Pathology, [address] [place] [address]. The CD2 test was performed at [facility] Department of Surgical Pathology, [address] [place] [address]. The CD4 test was performed at [facility] Department of Surgical Pathology, [address] [place] [address]. The CD5 test was performed at [facility] Department of Surgical Pathology, [address] [place] [address]. The CD7 test was performed at [facility] Department of Surgical Pathology, [address] [place] [address]. The CD8 test was performed at [facility] Department of Surgical Pathology, [address] [place] [address]. The ALK-1 test was performed at [facility] Department of Surgical Pathology, [address] [place] [address]. The SOX11 test was performed at [facility] Department of Surgical Pathology, [address] [place] [address]. Ti Lee MD LAB PATHOLOGY ORDERABLES Final R esult PATHOLOGY [facility] [place] * EGD (09/27/2024 10:27 AM CDT) Anatomical Region Laterality Modality Other Narrative Procedure Note Ti Lee MD - 09/27/2024 10:27 AM CDT [facility] GI ENDOSCOPY Patient Name: Travis Mccauley Procedure Date: 09/27/2024 10:27 AM Date of : 1990 Admit Type: Outpatient Age: 33 Gender: Female Attending MD: Ti Lee M.D. Room: [facility] ENDOSCOPY ROOM 03 Note Status: Finalized Procedure: [...] On: 09/27/2024 10:27 AM Recognized by the [employer] for promoting quality in endoscopy us Ti Lee MD ENDOSCOPY PROCEDURES Final Resul t * Colonoscopy (09/27/2024 10:26 AM CDT) Anatomical Region Laterality Modality Other Narrative Procedure Note Ti Lee MD - 09/27/2024 10:26 AM CDT [facility] GI ENDOSCOPY Patient Name: Travis Mccauley Procedure Date: 09/27/2024 10:26 AM Date of : 1990 Admit Type: Outpatient Age: 33 Gender: Female Attending MD: Ti Lee M.D. Room: [facility] ENDOSCOPY ROOM 03 Note Status: Finalized Procedure: [...] On: 09/27/2024 10:26 AM Recognized by the [employer] for promoting quality [...] Data last revised 2020. Testing performed by: [facility], [address] [place] [address]., [address] Trop T hs delta 0 ng/L JAS MAHMOOD Comment:Testing performed by : [address] [address] Trop T hs interp Insignificant JAS MAHMOOD Comment:Testing performed by : [facility], [address] [place] [address], [place]., [address] Blood 09/23/2024 6:12 PM CDT 09/23/2024 6:29 PM CDT us Linda PAEZ LAB BLOOD ORDERABLES Final Resul t JAS MAHMOOD [address] [facility] Department [place] [address] * CTA Abdomen Pelvis (09/23/2024 6:00 PM [...] Susan Zarco M.D. AT: AT Report ID: [id number] Reading Location: [place] [address] Procedure Note Susan Zarco MD - 09/23/2024 [...] Susan Zarco M.D. AT: AT Report ID: [id number] Reading Location: [place] [address] Sohailmyles Grijalva MD IMG CT PROCEDURES F inal Result * (ABNORMAL) Urinalysis reflex to microscopic and culture Urine (09/23/2024 4:19 PM CDT) Color, ur Yellow Yellow Comment:Testing performed by : [address] [address] Clarity, ur Clear Clear JAS Comment:Testing performed by : [address] [address] Specific gravity, ur 1.022 1.003 - 1.030 JAS Comment:Testing performed by : [address], [place]., [address] pH, urine 8.5 JAS Comment: Interpretive Data U rine pH is affected by diet, medications, systemic acid-base disturbances, and renal tubular function. pH may affect urinary stone formation. For example, urine pH below 6.0 may help reduce the tendency for calcium phosphate stones and pH greater than 6.0 may reduce the tendency for uric acid stone formation. Source: [facility] [place] Current Interpretive Data was last revised on 2017 Testing performed by: [address] [address] Protein, ur ql Trace(A) Negative JAS Comment:Testing performed by : [address] [address] Glucose, ur ql Negative Negative JAS Comment:Testing performed by : [address] [address] Ketones, ur Negative Negative JAS Comment:Testing performed by : [address] [address] Bilirubin, ur Negative Negative JAS Comment:Testing performed by : [address] [address] Blood, ur Negative Negative JAS Comment:Testing performed by : [address] [address] Urobilinogen, ur <2.0 <2.0 mg/dL JAS Comment:Testing performed by : [address] [address] Nitrite, ur Negative Negative JAS Comment:Testing performed by : [address] [address] Leukocyte esterase, ur Negative Negative JAS Comment:Testing performed by : [address] [address] UA reflex comment Reflex to microscopic UA will be performed. JAS Comment:Testing performed by : [address] [address] Urine 09/23/2024 4:19 PM CDT 09/23/2024 4:21 PM CDT Linda PAEZ LAB MICROBIOLOGY - GENERAL ORDER MARLEE Final Result Performing Organization Address [facility] Co de Phone Number JANIELOVE [address] [place] [address] * (ABNORMAL) Urinalysis, microscopic only (09/23/2024 4:19 PM CDT) WBC, ur 0-5 0 - 5 /HPF Comment:Testing performed by : [address] [address] RBC, ur 3-5(A) 0 - 2 /HPF JAS Comment:Testing performed by : [address] [address] Epithelial cells, squamous, ur 21-50(A) 0 - 5 /HPF JAS Comment:Testing performed by : [address] [address] Culture Reflex Comment Reflex conditions for urine culture (WBC >10) not met. JAS Comment:Testing performed by : [address] [address] Urine 09/23/2024 4:19 PM CDT 09/23/2024 4:21 PM CDT us Linda Loera PA LAB URINE ORDERABLES Final Resul t Performing Organization Address City/[facility]/ZIP Co de Phone Number JAS [address] [place] [address] * Troponin T high-sensitivity series (baseline, 2hr, 4hr, 6hr) (09/23/2024 4:05 PM CDT) Trop T hs <6 <=14 ng/L Comment: Interpretive Data For further hscTnT resources including the diagnostic algorithm and an aid in interpretation, copy and paste this link: https://nrl.testcatalog.org/show/hsTrop Current Interpretive Data last revised 2020. Testing performed by: [facility], [address] [place] [address]., [address] Blood 09/23/2024 4:05 PM CDT 09/23/2024 4:08 PM CDT us Linda PAEZ LAB BLOOD ORDERABLES Final Resul t [place] [id number] [facility] Department [place] [address] * eGFR (09/23/2024 4:05 PM CDT) eGFR [...] of Race in Diagnosing Kidney Disease, JASN 202). The CKD-EPI equation should not be used for patients with unstable renal function and has not been validated in children and those over 70. Current interpretive data was last reviewed 2021. Testing performed by: [facility], [address] [place] [address]., [address] Blood 09/23/2024 4:05 PM CDT 09/23/2024 4:08 PM CDT us Linda PAEZ LAB BLOOD ORDERABLES Final Resul t JAS [address] [facility] Department [place] [address] * Differential, auto (09/23/2024 4:05 PM CDT) Neutrophil abs 4.38 1.50 - 6.50 K/cumm Comment:Testing performed by : [address] [address] Imm gran abs 0.01 0.00 - 0.10 K/cumm JAS Comment:Testing performed by : [address] [address] Lymphocyte abs 1.91 0.80 - 3.30 K/cumm JAS Comment:Testing performed by : [address] [address] Monocyte abs 0.60 0.20 - 0.80 K/cumm JAS Comment:Testing performed by : [address] [address] Eosinophil abs 0.47 0.00 - 0.50 K/cumm JAS Comment:Testing performed by : [address] [address] Basophil abs 0.08 0.00 - 0.10 K/cumm JAS Comment:Testing performed by : [address] [address] Neutrophil pct 58.8 % JAS Comment: Interpretive Data Percent cell count reference ranges are not reported, since discordance with absolute values may lead to misinterpretation of CBC data. Current Interpretive Data was last revised on 2017. Testing performed by: [address] [address] Imm gran pct 0.1 % JAS Comment: Interpretive Data Percent cell count reference ranges are not reported, since discordance with absolute values may lead to misinterpretation of CBC data. Current Interpretive Data was last revised on 2017. Testing performed by: [address] [address] Lymphocyte pct 25.6 % [facility] Comment: Interpretive Data Percent cell count reference ranges are not reported, since discordance with absolute values may lead to misinterpretation of CBC data. Current Interpretive Data was last revised on 2017. Testing performed by: [address] [address] Monocyte pct 8.1 % [facility] Comment: Interpretive Data Percent cell count reference ranges are not reported, since discordance with absolute values may lead to misinterpretation of CBC data. Current Interpretive Data was last revised on 2017. Testing performed by: [address] [address] Eosinophil pct 6.3 % [facility] Comment: Interpretive Data Percent cell count reference ranges are not reported, since discordance with absolute values may lead to misinterpretation of CBC data. Current Interpretive Data was last revised on 2017. Testing performed by: [address] [address] Basophil pct 1.1 % [facility] Comment: Interpretive Data Percent cell count reference ranges are not reported, since discordance with absolute values may lead to misinterpretation of CBC data. Current Interpretive Data was last revised on 2017. Testing performed by: [address] [address] Blood 09/23/2024 4:05 PM CDT 09/23/2024 4:10 PM CDT us Linda PAEZ LAB BLOOD ORDERABLES Final Resul t JAS [address] [facility] Department [place] [address] * CBC with auto differential (09/23/2024 4:05 PM CDT) WBC 7.45 3.80 - 9.90 K/cumm Comment:Testing performed by : [address] [address] Hgb 13.4 11.9 - 15.5 g/dL JAS Comment:Testing performed by : [address] [address] Hct 39.8 35.6 - 45.5 % JAS Comment:Testing performed by : [address] [address] Plt 178 150 - 400 K/cumm JAS Comment:Testing performed by : [address] [address] MPV 11.1 9.1 - 12.3 fL JAS Comment:Testing performed by : [address], [address] RBC 4.58 3.90 - 5.20 M/cumm JAS Comment:Testing performed by : [address] [address] MCV 86.9 81.3 - 96.4 fL JAS Comment:Testing performed by : [address] [address] MCH 29.3 27.1 - 33.3 pg JAS Comment:Testing performed by : [address] [address] MCHC 33.7 32.3 - 35.7 g/dL JAS Comment:Testing performed by : [address] [address] RDW CV 12.0 11.1 - 14.9 % JAS Comment:Testing performed by : [address] [address] RDW SD 38.2 35.7 - 48.1 fL JAS Comment:Testing performed by : [address] [address] NRBC abs 0.00 0.00 - 0.01 K/cumm JAS Comment:Testing performed by : [address] [address] Blood Venous blood specimen / Unknown 09/23/2024 4:05 PM CDT 09/23/2024 4:10 PM CDT us [employer] PA LAB BLOOD ORDERABLES Final Resul t Performing Organization Address City/[facility]/ZIP Co de Phone Number JAS [address] [place] [address] * Lipase (09/23/2024 4:05 PM CDT) Lipase 38 10 - 99 Units/L Comment:Testing performed by : [address] [address] Blood 09/23/2024 4:05 PM CDT 09/23/2024 4:08 PM CDT us [employer] PA LAB BLOOD ORDERABLES Final Resul t Performing Organization Address [facility] de Phone Number JAS [address] [place] [address] * (ABNORMAL) Comprehensive metabolic panel (09/23/2024 4:05 PM CDT) Sodium 140 135 - 145 mmol/L Comment:Testing performed by : [address] [address] Potassium, pl 3.2(L) 3.3 - 4.9 mmol/L JAS Comment:Testing performed by : [address] [address] Chloride 102 97 - 110 mmol/L JAS Comment:Testing performed by : [address] [address] CO2 28 22 - 32 mmol/L JAS Comment:Testing performed by : [address] [address] Anion gap 10 2 - 15 mmol/L JAS Comment:Testing performed by : [address] [address] BUN 15 6 - 25 mg/dL JAS Comment:Testing performed by : [address] [address] Creatinine 0.70 0.60 - 1.10 mg/dL JAS Comment:Testing performed by : [address] [address] Glucose 95 70 - 199 mg/dL JAS Comment: Interpretive Data Fasting glucose >/= 126 [...] was last revised 2022. Testing performed by: [address] [address] Calcium 9.5 8.5 - 10.3 mg/dL JAS Comment:Testing performed by : [address] [address] Bilirubin, total 0.4 0.1 - 1.2 mg/dL JAS Comment:Testing performed by : [address] [address] Protein, pl 7.3 6.5 - 8.5 g/dL JAS Comment:Testing performed by : [address] [address] Albumin 4.4 3.5 - 5.0 g/dL JAS Comment:Testing performed by : [address] [address] Alk phos 84 40 - 130 Units/L JAS Comment:Testing performed by : [address] [address] ALT 28 7 - 45 Units/L JAS Comment:Testing performed by : [address] [address] AST 26 10 - 45 Units/L JAS Comment:Testing performed by : [address] [address] Blood 09/23/2024 4:05 PM CDT 09/23/2024 4:08 PM CDT Linda PAEZ LAB BLOOD ORDERABLES Final Resul t Performing Organization Address City/[facility] Co de Phone Number JAS [address] [facility] Department [place] [address] * ECG 12 lead (09/23/2024 4:01 PM CDT) Pathologist [facility] Ventricular Rate EKG/Min 62 BPM [facility] Atrial Rate 62 BPM [facility] HI-Interval (MSEC) 146 ms [facility] QRS-Interval (MSEC) 72 ms [facility] QT-Interval (MSEC) 464 ms [facility] QTc 470 ms [facility] P [place] 0 degrees [facility] R [place] 53 degrees [facility] T [place] 56 degrees [facility] Diagnosis Normal sinus rhythm Normal ECG No previous ECGs available Confirmed by SULTAN PETERSON M.D. ([id number]) on 09/23/2024 9:53:47 PM [facility] 09/23/2024 4:01 PM CDT 09/23/2024 9:53 PM CDT Linda PAEZ ECG ORDERABLES Final Result Performing Organization Address [facility] de Phone Number [facility] * CT Abdomen Pelvis W Contrast (09/02/2024 [...] Tacos Jack M.D. NS: NS Report ID: [id number] Reading Location: [id number] Procedure Note Tacos Jack MD - 09/02/2024 [...] Tacos Jack M.D. NS: NS Report ID: [id number] Reading Location: [id number] us Linda PAEZ IMG CT PROCEDURES Final [...] ur Yellow Yellow Comment:Testing performed by : [address] [address] Clarity, ur Clear Clear JAS Comment:Testing performed by : [address] [address] Specific gravity, ur 1.034(H) 1.003 - 1.030 JAS Comment:Testing performed by : [address] [address] pH, urine 5.5 JAS Comment: Interpretive Data U rine pH is affected by diet, medications, systemic acid-base disturbances, and renal tubular function. pH may affect urinary stone formation. For example, urine pH below 6.0 may help reduce the tendency for calcium phosphate stones and pH greater than 6.0 may reduce the tendency for uric acid stone formation. Source: [facility] Current Interpretive Data was last revised on 2017 Testing performed by: [address] [address] Protein, ur ql Trace(A) Negative JAS Comment:Testing performed by : [address] [address] Glucose, ur ql Negative Negative JAS Comment:Testing performed by : [address], [place]., [address] Ketones, ur 1+(A) Negative JAS MAHMOOD Comment:Testing performed by : [address], [place]., [address] Bilirubin, ur Negative Negative JAS Comment:Testing performed by : [address], [place]., [address] Blood, ur 1+(A) Negative JAS Comment:Testing performed by : [address], [place]., [address] Urobilinogen, ur <2.0 <2.0 mg/dL JAS Comment:Testing performed by : [address], [place]., [address] Nitrite, ur Negative Negative JAS Comment:Testing performed by : [address], [place]., [address] Leukocyte esterase, ur 1+(A) Negative JAS Comment:Testing performed by : [address], [place]., [address] UA reflex comment Reflex to microscopic UA will be performed. JAS Comment:Testing performed by : [address], [place]., [address] Urine 09/02/2024 11:4 5 AM CDT 09/02/2024 11:55 AM CDT us Linda PAEZ LAB MICROBIOLOGY - GENERAL ORDER MARLEE Final Result JAS [address] [facility] Department of Laboratories [place], [place] [id number] * (ABNORMAL) Urinalysis, microscopic only (09/02/2024 11:45 AM CDT) WBC, ur 0-5 0 - 5 /HPF Comment:Testing performed by : [address], [place]., [address] RBC, ur 6-10(A) 0 - 2 /HPF JAS MAHMOOD Comment:Testing performed by : [address], [place]., [address] Epithelial cells, squamous, ur 21-50(A) 0 - 5 /HPF JAS Comment:Testing performed by : [address] [address] Mucous, ur Present(A) JAS Comment:Testing performed by : [address] [address] Culture Reflex Comment Reflex conditions for urine culture (WBC >10) not met. JAS Comment:Testing performed by : [address] [address] Urine 09/02/2024 11:4 5 AM CDT 09/02/2024 11:55 AM CDT us Linda PAEZ LAB URINE ORDERABLES Final Resul t JAS [facility] [place] [address] * eGFR (09/02/2024 11:41 AM CDT) eGFR [...] was last reviewed 2021. Testing performed by: [address] [address] Blood 09/02/2024 11:4 1 AM CDT 09/02/2024 11:55 AM CDT us Linda PAEZ LAB BLOOD ORDERABLES Final Resul t JAS [address] [facility] [place] [address] * (ABNORMAL) Differential, auto (09/02/2024 11:41 AM CDT) Neutrophil abs 10.39(H) 1.50 - 6.50 K/cumm Comment:Testing performed by : [address] [address] Imm gran abs 0.05 0.00 - 0.10 K/cumm JAS Comment:Testing performed by : [address] [address] Lymphocyte abs 0.39(L) 0.80 - 3.30 K/cumm JAS Comment:Testing performed by : [address] [address] Monocyte abs 0.68 0.20 - 0.80 K/cumm JAS Comment:Testing performed by : [address] [address] Eosinophil abs 0.04 0.00 - 0.50 K/cumm JAS Comment:Testing performed by : [address] [address] Basophil abs 0.03 0.00 - 0.10 K/cumm JAS Comment:Testing performed by : [address] [address] Neutrophil pct 89.7 % JAS Comment: Interpretive Data Percent cell count reference ranges are not reported, since discordance with absolute values may lead to misinterpretation of CBC data. Current Interpretive Data was last revised on 2017. Testing performed by: [address] [address] Imm gran pct 0.4 % JAS Comment: Interpretive Data Percent cell count reference ranges are not reported, since discordance with absolute values may lead to misinterpretation of CBC data. Current Interpretive Data was last revised on 2017. Testing performed by: [address] [address] Lymphocyte pct 3.4 % [facility] Comment: Interpretive Data Percent cell count reference ranges are not reported, since discordance with absolute values may lead to misinterpretation of CBC data. Current Interpretive Data was last revised on 2017. Testing performed by: [address] [address] Monocyte pct 5.9 % [facility] Comment: Interpretive Data Percent cell count reference ranges are not reported, since discordance with absolute values may lead to misinterpretation of CBC data. Current Interpretive Data was last revised on 2017. Testing performed by: [address] [address] Eosinophil pct 0.3 % [facility] Comment: Interpretive Data Percent cell count reference ranges are not reported, since discordance with absolute values may lead to misinterpretation of CBC data. Current Interpretive Data was last revised on 2017. Testing performed by: [address] [address] Basophil pct 0.3 % [facility] Comment: Interpretive Data Percent cell count reference ranges are not reported, since discordance with absolute values may lead to misinterpretation of CBC data. Current Interpretive Data was last revised on 2017. Testing performed by: [address] [address] Blood 09/02/2024 11:4 1 AM CDT 09/02/2024 11:55 AM CDT us Linda PAEZ LAB BLOOD ORDERABLES Final Resul t JSA [address] [facility] [place] [address] * (ABNORMAL) CBC with auto differential (09/02/2024 11:41 AM CDT) WBC 11.58(H) 3.80 - 9.90 K/cumm Comment:Testing performed by : [address] [place]., [address] Hgb 15.0 11.9 - 15.5 g/dL JAS Comment:Testing performed by : [address], [address] Hct 45.2 35.6 - 45.5 % JAS Comment:Testing performed by : [address] [address] Plt 192 150 - 400 K/cumm JAS Comment:Testing performed by : [address], [address] MPV 11.0 9.1 - 12.3 fL JAS Comment:Testing performed by : [address], [address] RBC 5.18 3.90 - 5.20 M/cumm JAS Comment:Testing performed by : [address], [address] MCV 87.3 81.3 - 96.4 fL JAS Comment:Testing performed by : [address], [address] MCH 29.0 27.1 - 33.3 pg JAS Comment:Testing performed by : [address], [address] MCHC 33.2 32.3 - 35.7 g/dL JAS Comment:Testing performed by : [address], [address] RDW CV 12.4 11.1 - 14.9 % JAS Comment:Testing performed by : [address], [address] RDW SD 39.7 35.7 - 48.1 fL JAS Comment:Testing performed by : [address], [address] NRBC abs 0.00 0.00 - 0.01 K/cumm JAS Comment:Testing performed by : [address], [address] Blood 09/02/2024 11:4 1 AM CDT 09/02/2024 11:55 AM CDT us Linda Evaristo PA LAB BLOOD ORDERABLES Final Resul t Performing Organization Address City/[facility] Co de Phone Number JAS [address] [address] * Lipase (09/02/2024 11:41 AM CDT) Lipase 23 10 - 99 Units/L Comment:Testing performed by : [address] [address] Blood 09/02/2024 11:4 1 AM CDT 09/02/2024 11:55 AM CDT us Linda Evaristo PA LAB BLOOD ORDERABLES Final Resul t Performing Organization Address [facility] de Phone Number JAS [address] [address] * Comprehensive metabolic panel (09/02/2024 11:41 AM CDT) Sodium 140 135 - 145 mmol/L Comment:Testing performed by : [address] [address] Potassium, pl 3.7 3.3 - 4.9 mmol/L JAS Comment:Testing performed by : [address] [address] Chloride 102 97 - 110 mmol/L JAS Comment:Testing performed by : [address] [address] CO2 27 22 - 32 mmol/L JAS Comment:Testing performed by : [address] [address] Anion gap 11 2 - 15 mmol/L JAS Comment:Testing performed by : [address] [address] BUN 19 6 - 25 mg/dL JAS Comment:Testing performed by : [address] [address] Creatinine 0.68 0.60 - 1.10 mg/dL JAS Comment:Testing performed by : [address] [address] Glucose 108 70 - 199 mg/dL JAS Comment: Interpretive Data Fasting glucose >/= 126 [...] was last revised 2022. Testing performed by: [address] [address] Calcium 10.1 8.5 - 10.3 mg/dL JAS Comment:Testing performed by : [address] [address] Bilirubin, total 0.7 0.1 - 1.2 mg/dL JAS Comment:Testing performed by : [address] [address] Protein, pl 8.1 6.5 - 8.5 g/dL JAS Comment:Testing performed by : [address] [address] Albumin 4.8 3.5 - 5.0 g/dL JAS Comment:Testing performed by : [address] [address] Alk phos 86 40 - 130 Units/L JAS Comment:Testing performed by : [address] [address] ALT 41 7 - 45 Units/L JAS Comment:Testing performed by : [address] [address] AST 23 10 - 45 Units/L JAS Comment:Testing performed by : [address] [address] Blood 09/02/2024 11:4 1 AM CDT 09/02/2024 11:55 AM CDT us Linda PAEZ LAB BLOOD ORDERABLES Final Resul t JANIENER MH [address] [facility] [place] [address] from Last 3 Months Insurance [facility] CHO[employer] [place] [address] [address] [place] [address] CHOICE [facility] CHOICE PLUS ANTH ACCESS CHOICE Care Teams [employer] Operator Relationship Specialty Start Date End Date Tameka Gregory PA [address] [place] [address] PCP - General Physician Eight Arm Operator 09/02/24
--- OUTSIDE RECORDS SUMMARY | 2024-10-30 09:57 | XMS_ITS | Encounter Summary ---
Author Organization [facility] Healthcare Address [address] [place] [address] Care Team Providers Care Health Coordinator Name Role Phone Tameka Gregory Primary Care Pr ovider Encounter Details Date Type Department Care Team (Latest Contact Info) Description 10/07/2024 Results Follow-Up [facility] Gastroenterology at [address] [place] [phone] Ti Lee MD [address] [place] [phone] Surgical pathology Social History Tobacco Use Types Packs/Day Years Used Date Smoking Tobacco: Never Smokeless Tobacco: Never AUDIT-C Answer Date Recorded Q1: How often [...] PM CDT Sexual Orientation Not on file documented as of this encounter Plan of Treatment Not on file documented as of this encounter Visit Diagnoses Not on filedocumented in this encounter Care Teams Health Coordinator Relationship Specialty Start Date End Date Tameka Gregory PA [address] [place] [address] PCP - General Physician [employer] 09/02/24 documented as of this encounter
== END 2024-10-30 09:34 | disposition home or self-care (01) ==
PROVIDERS: PCP Physician Assistant; Visit Provider Physician Assistant
DX: R10.31 Right lower quadrant pain (principal); M47.896 Other spondylosis, lumbar region
CPT/HCPCS: 72100

== ENCOUNTER 2024-11-25 14:42 | Outpatient (CLI) | payer OTHER, SELFPAY ==
--- NOTE | ~2024-11-25 | CT_ITS ---
EXAMINATION: CT abdomen pelvis w con, 11/25/2024 14:50 CDT HISTORY: RLQ Pain COMPARISON: Comparison 06/06/2023. TECHNIQUE: CT scan of the abdomen and pelvis was performed with contrast. Isovue 300, 92cc injected IV. One or more of the following dose reduction techniques were used: automated exposure control, adjustment of the mA and/or kV according to patient size, use of iterative reconstruction technique. Unless otherwise stated, incidental findings do not require dedicated follow up imaging FINDINGS: CT abdomen: LUNG BASES: The lung bases are clear. The visualized portions of the heart and pericardium are unremarkable. LIVER: The main portal vein is patent. There is no intrahepatic biliary duct dilatation. SPLEEN: Unremarkable, no splenomegaly. KIDNEYS: Right Kidney: Unremarkable. No calculi. No hydronephrosis. Left Kidney: Unremarkable. No calculi. No hydronephrosis ADRENAL GLANDS: Unremarkable. PANCREAS: Unremarkable. GALLBLADDER/BILIARY: Cholecystectomy. CBD measures normal limits. STOMACH AND ESOPHAGUS: Visualized stomach and esophagus within normal limits. BOWEL/MESENTERY: Moderate fecal content, no colitis or diverticulitis. Appendix normal. Mesentery normal. Small bowel normal. ADENOPATHY/RETROPERITONEUM: No lymphadenopathy. AORTA/VASCULATURE: Normal caliber aorta. FREE FLUID OR FREE AIR: No free fluid.. CT pelvis: SOLID ORGANS/REPRODUCTIVE: Post hysterectomy. No adnexal mass. BLADDER: Within normal limits. OSSEOUS STRUCTURES: No acute osseous abnormality.No suspicious lesions. OVERLYING SOFT TISSUES: Unremarkable. IMPRESSION: 1. No acute intra-abdominal process. Reviewed, dictated and finalized at location A.
--- OUTSIDE RECORDS SUMMARY | 2024-11-25 15:00 | XMS_ITS | Clinical Summary ---
Author Organization [facility] Virtual Care Address [address] [place] [phone] Phone Care Team Providers Care Meeting Planner Name Role Phone Marcileny Tameka PAEZ Primary [...] Department Care Team Description 5 Orders Only [facility] Gastroenterology at [address] [place] [phone] Ti Lee MD Abdominal pain (Primary Dx); Diarrhea, unspecified type 5 Orders Only [facility] Gastroenterology at [address] [place] [phone] Ti Lee MD Abdominal pain (Primary Dx); Diarrhea, unspecified type 5 Orders Only [facility] Gastroenterology at [address] [phone] Ti Lee MD Abdominal pain (Primary Dx); Diarrhea, unspecified type 5 Results Follow-Up [facility] Gastroenterology at [address] [phone] Ti Lee MD Surgical pathology 5 Orders Only [facility] Gastroenterology at [address] [phone] Ti Lee MD 5 10:35 AM CDT Anesthesia Event [facility] [address] [place] [address] Eduardo Ochoa MD 5 10:30 AM CDT - 5 11:00 AM CDT Surgery [facility] [address] [place] [address] Ti Lee MD ESOPHAGOGASTRODUODENOSCOPY BIOPSY 5 9:11 AM CDT - 5 12:17 PM CDT Hospital Encounter [facility] [address] [place] [address] Ti Lee MD Abdominal pain; Diarrhea, unspecified type Discharge Disposition: Discharge to home or self care 5 5:14 PM CDT - 5 9:26 PM CDT Emergency [facility] Emergency Department [address] [place] [phone] Abdominal pain, epigastric (Primary Dx) Discharge Disposition: Discharge to home or self care 5 Orders Only [facility] Gastroenterology at [address] [phone] Ti Lee MD Abdominal pain (Primary Dx); Diarrhea, unspecified type Telephone [facility] Gastroenterology at [address] [place] [phone] Ti Lee MD 5 11:57 AM CDT - 2:45 PM CDT Emergency [facility] Emergency Department [address] [place] [address] Nausea vomiting and diarrhea (Primary Dx); Pulmonary [...] gastric) 09/27/2024 11:11 AM CDT Narrative PATHOLOGY [facility] - 10/04/2024 9:04 PM CDT [facility] Department of Pathology [address] [place] [address] Note to Patients: This report may contain [...] : 1990 (Age: 33) Gender: F Address: [address] [place] [address] Hospital #: [id number] Service: Gastro Location: Patient Type: [facility] OUTPATIENT Taken: 09/27/2024 Received: 09/27/2024 Accessioned: 09/27/2024 Reported: 10/04/2024 Physician(s): Foreign Coombs, P.AReina Diagnosis: A. Duodenal biopsy rule out Celiac [...] ALK1 or cyclinD1. CD21 and cD23 show JAIL meshwork. Initial H&E of part D were [...] ALK1 or cyclinD1. CD21 and cD23 show JAIL meshwork. Initial H&E of part D were [...] is entirely submitted. Labeled D1. Jar 0. jjmhb/09/27/2024 14:08 MAI Edwards, PA ([facility]) Microscopic slide review and interpretation for this case was performed at [facility], Department of Surgical Pathology, [address] [facility], [place] [id number], [place] [address] CLIA # [id number] The PAX-5 test was performed at [facility], Department of Surgical Pathology, [address] [place] [address]. The BCL-2 Oncoprotein test was performed at [facility], Department of Surgical Pathology, [address] [place] [address]. The Bcl-6 IHC test was performed at [facility], Department of Surgical Pathology, [address] [place] [address]. The CD10 test was performed at [facility] Department of Surgical Pathology, [address] [place] [address]. The CD21 test was performed at [facility] Department of Surgical Pathology, [address] [place] [address]. The CD23 test was performed at [facility] Department of Surgical Pathology, [address] [place] [address]. The Cyclin D1 test was performed at [facility] Department of Surgical Pathology, [address] [place] [address]. The CD43 test was performed at [facility] Department of Surgical Pathology, [address] [place] [address]. The [place] (Light chains)-IF test was performed at [facility] Department of Surgical Pathology, [address] [place] [address]. The Lambda (Light Chains) IF test was performed at [facility] Department of Surgical Pathology, [address] [place] [address]. The CD30 test was performed at [facility] Department of Surgical Pathology, [address] [place] [address]. The EBV DEMOND test was performed at [facility] Department of Surgical Pathology, [address] [place] [address]. The CD2 test was performed at [facility] Department of Surgical Pathology, [address] [place] [address]. The CD4 test was performed at [facility] Department of Surgical Pathology, [address] [place] [address]. The CD5 test was performed at [facility] Department of Surgical Pathology, [address] [place] [address]. The CD7 test was performed at [facility] Department of Surgical Pathology, [address] [place] [address]. The CD8 test was performed at [facility], Department of Surgical Pathology, [address] [place] [address]. The ALK-1 test was performed at [facility], Department of Surgical Pathology, [address] [place] [address]. The SOX11 test was performed at [facility], Department of Surgical Pathology, [address] [place] [address]. us Ti Lee MD LAB PATHOLOGY ORDERABLES Final R esult PATHOLOGY [facility] * EGD (09/27/2024 10:27 AM CDT) Anatomical Region Laterality Modality Other Narrative Procedure Note Ti Lee MD - 09/27/2024 10:27 AM CDT [facility] ENDOSCOPY Patient Name: Travis Mccauley Procedure Date: 09/27/2024 10:27 AM Date of : 1990 Admit Type: Outpatient Age: 33 Gender: Female Attending MD: Ti Lee M.D. Room: [facility] ENDOSCOPY ROOM 03 Note Status: Finalized [...] On: 09/27/2024 10:27 AM Recognized by the [employer] for promoting quality in endoscopy us Ti Lee MD ENDOSCOPY PROCEDURES Final Resul t * Colonoscopy (09/27/2024 10:26 AM CDT) Anatomical Region Laterality Modality Other Narrative Procedure Note Ti Lee MD - 09/27/2024 10:26 AM CDT [facility] GI ENDOSCOPY Patient Name: Travis Mccauley Procedure Date: 09/27/2024 10:26 AM Date of : 1990 Admit Type: Outpatient Age: 33 Gender: Female Attending MD: Ti Lee M.D. Room: [facility] ENDOSCOPY ROOM 03 Note Status: Finalized [...] On: 09/27/2024 10:26 AM Recognized by the [employer] for promoting quality [...] Data last revised 2020. Testing performed by: [facility], [address] [place] [address]., [address] Trop T hs delta 0 ng/L JAS MAHMOOD Comment:Testing performed by : [facility], [address] [place] [address]., [address] Trop T hs interp Insignificant JAS MAHMOOD Comment:Testing performed by : [address] [address] Blood 09/23/2024 6:12 PM CDT 09/23/2024 6:29 PM CDT Linda PAEZ LAB BLOOD ORDERABLES Final Resul t JAS [address] [facility] Department [place] [address] * CTA Abdomen Pelvis (09/23/2024 6:00 PM [...] Susan Zarco M.D. AT: AT Report ID: [id number] Reading Location: [id number] Procedure Note Susan Zarco MD - 09/23/2024 [...] Susan Zarco M.D. AT: AT Report ID: [id number] Reading Location: [place] [address] [facility] Services[facility] Grijalva MD IM CT PROCEDURES F inal Result * (ABNORMAL) Urinalysis reflex to microscopic and culture Urine (09/23/2024 4:19 PM CDT) Color, ur Yellow Yellow Comment:Testing performed by : [address] [address] Clarity, ur Clear Clear JAS Comment:Testing performed by : [address] [address] Specific gravity, ur 1.022 1.003 - 1.030 JAS Comment:Testing performed by : [address] [address] pH, urine 8.5 JAS Comment: Interpretive Data U rine pH is affected by diet, medications, systemic acid-base disturbances, and renal tubular function. pH may affect urinary stone formation. For example, urine pH below 6.0 may help reduce the tendency for calcium phosphate stones and pH greater than 6.0 may reduce the tendency for uric acid stone formation. Source: [facility] Current Interpretive Data was last revised on 2017 Testing performed by: [facility], [address] [place] [address]., [address] Protein, ur ql Trace(A) Negative JAS Comment:Testing performed by : [address] [address] Glucose, ur ql Negative Negative JAS Comment:Testing performed by : [address], [place]., [address] Ketones, ur Negative Negative JAS Comment:Testing performed by : [address] [address] Bilirubin, ur Negative Negative JAS Comment:Testing performed by : [address], [place]., [address] Blood, ur Negative Negative JAS Comment:Testing performed by : [address] [address] Urobilinogen, ur <2.0 <2.0 mg/dL JAS Comment:Testing performed by : [address] [address] Nitrite, ur Negative Negative JAS Comment:Testing performed by : [address], [place]., [address] Leukocyte esterase, ur Negative Negative JAS Comment:Testing performed by : [address] [address] UA reflex comment Reflex to microscopic UA will be performed. JAS Comment:Testing performed by : [address] [address] Urine 09/23/2024 4:19 PM CDT 09/23/2024 4:21 PM CDT us Linda PAEZ LAB MICROBIOLOGY - GENERAL ORDER MARLEE Final Result JAS MAHMOOD [address] [facility] Department [place] [address] * (ABNORMAL) Urinalysis, microscopic only (09/23/2024 4:19 PM CDT) WBC, ur 0-5 0 - 5 /HPF Comment:Testing performed by : [address] [address] RBC, ur 3-5(A) 0 - 2 /HPF JAS Comment:Testing performed by : [address] [address] Epithelial cells, squamous, ur 21-50(A) 0 - 5 /HPF JAS Comment:Testing performed by : [address] [address] Culture Reflex Comment Reflex conditions for urine culture (WBC >10) not met. JAS Comment:Testing performed by : [address] [address] Urine 09/23/2024 4:19 PM CDT 09/23/2024 4:21 PM CDT us Linda PAEZ LAB URINE ORDERABLES Final Resul t Performing Organization Address [facility] de Phone Number [facility] Department [place] [address] * Troponin T high-sensitivity series (baseline, 2hr, 4hr, 6hr) (09/23/2024 4:05 PM CDT) Pathologist [facility] Trop T hs <6 <=14 ng/L Comment: Interpretive Data For further hscTnT resources including the diagnostic algorithm and an aid in interpretation, copy and paste this link: https://nrl.testcatalog.org/show/hsTrop Current Interpretive Data last revised 2020. Testing performed by: [address] [address] Blood 09/23/2024 4:05 PM CDT 09/23/2024 4:08 PM CDT Lindailiana Loera PA LAB BLOOD ORDERABLES Final Resul t Performing Organization Address [facility] de Phone Number [place] [phone] [facility] Department [place] [address] * eGFR (09/23/2024 4:05 PM CDT) [facility] eGFR >90 >=60 mL/min/1. 73 m2 Comment: [...] last reviewed 2021. Testing performed by: [address] [address] Blood 09/23/2024 4:05 PM CDT 09/23/2024 4:08 PM CDT us Linda PAEZ LAB BLOOD ORDERABLES Final Resul t Performing Organization Address [facility] Co de Phone Number [place] [phone] [facility] Department [place] [address] * Differential, auto (09/23/2024 4:05 PM CDT) [facility] Neutrophil abs 4.38 1.50 - 6.50 K/cumm Comment:Testing performed by : [address] [address] Imm gran abs 0.01 0.00 - 0.10 K/cumm JAS Comment:Testing performed by : [address] [address] Lymphocyte abs 1.91 0.80 - 3.30 K/cumm [facility] Comment:Testing performed by : [address] [address] Monocyte abs 0.60 0.20 - 0.80 K/cumm [facility] Comment:Testing performed by : [address] [address] Eosinophil abs 0.47 0.00 - 0.50 K/cumm [facility] Comment:Testing performed by : [address], [place]., [address] Basophil abs 0.08 0.00 - 0.10 K/cumm [facility] Comment:Testing performed by : [address] [address] Neutrophil pct 58.8 % [facility] Comment: Interpretive Data Percent cell count reference ranges are not reported, since discordance with absolute values may lead to misinterpretation of CBC data. Current Interpretive Data was last revised on 2017. Testing performed by: [address] [address] Imm gran pct 0.1 % [facility] Comment: Interpretive Data Percent cell count reference ranges are not reported, since discordance with absolute values may lead to misinterpretation of CBC data. Current Interpretive Data was last revised on 2017. Testing performed by: [address] [address] Lymphocyte pct 25.6 % [facility] Comment: Interpretive Data Percent cell count reference ranges are not reported, since discordance with absolute values may lead to misinterpretation of CBC data. Current Interpretive Data was last revised on 2017. Testing performed by: [address] [address] Monocyte pct 8.1 % [facility] Comment: Interpretive Data Percent cell count reference ranges are not reported, since discordance with absolute values may lead to misinterpretation of CBC data. Current Interpretive Data was last revised on 2017. Testing performed by: [address] [address] Eosinophil pct 6.3 % [facility] Comment: Interpretive Data Percent cell count reference ranges are not reported, since discordance with absolute values may lead to misinterpretation of CBC data. Current Interpretive Data was last revised on 2017. Testing performed by: [address] [address] Basophil pct 1.1 % JAS MAHMOOD Comment: Interpretive Data Percent cell count reference ranges are not reported, since discordance with absolute values may lead to misinterpretation of CBC data. Current Interpretive Data was last revised on 2017. Testing performed by: [address] [address] Blood 09/23/2024 4:05 PM CDT 09/23/2024 4:10 PM CDT us Linda PAEZ LAB BLOOD ORDERABLES Final Resul t JAS [facility] Department [place] [address] * CBC with auto differential (09/23/2024 4:05 PM CDT) WBC 7.45 3.80 - 9.90 K/cumm Comment:Testing performed by : [address] [address] Hgb 13.4 11.9 - 15.5 g/dL JAS MAHMOOD Comment:Testing performed by : [address] [address] Hct 39.8 35.6 - 45.5 % JAS MAHMOOD Comment:Testing performed by : [address] [address] Plt 178 150 - 400 K/cumm JAS MAHMOOD Comment:Testing performed by : [address] [address] MPV 11.1 9.1 - 12.3 fL JAS MAHMOOD Comment:Testing performed by : [address] [address] RBC 4.58 3.90 - 5.20 M/cumm JAS MAHMOOD Comment:Testing performed by : [address] [address] MCV 86.9 81.3 - 96.4 fL JAS Comment:Testing performed by : [address], [address] MCH 29.3 27.1 - 33.3 pg JAS MAHMOOD Comment:Testing performed by : [address] [address] MCHC 33.7 32.3 - 35.7 g/dL JAS MAHMOOD Comment:Testing performed by : [address], [address] RDW CV 12.0 11.1 - 14.9 % JAS Comment:Testing performed by : [address], [address] RDW SD 38.2 35.7 - 48.1 fL JAS Comment:Testing performed by : [address], [address] NRBC abs 0.00 0.00 - 0.01 K/cumm JAS Comment:Testing performed by : [address], [address] Blood Venous blood specimen / Unknown 09/23/2024 4:05 PM CDT 09/23/2024 4:10 PM CDT us Linda PAEZ LAB BLOOD ORDERABLES Final Resul t [place] [id number] [facility] [place] [address] * Lipase (09/23/2024 4:05 PM CDT) Lipase 38 10 - 99 Units/L Comment:Testing performed by : [address] [address] Blood 09/23/2024 4:05 PM CDT 09/23/2024 4:08 PM CDT us Lindastevie Loera PA LAB BLOOD ORDERABLES Final Resul t JAS 2762 [facility] Department [place] [address] * (ABNORMAL) Comprehensive metabolic panel (09/23/2024 4:05 PM CDT) Sodium 140 135 - 145 mmol/L Comment:Testing performed by : [address], [place]., [address] Potassium, pl 3.2(L) 3.3 - 4.9 mmol/L JAS Comment:Testing performed by : [address], [place]., [address] Chloride 102 97 - 110 mmol/L JAS Comment:Testing performed by : [address], [place]., [address] CO2 28 22 - 32 mmol/L JAS Comment:Testing performed by : [address], [place]., [address] Anion gap 10 2 - 15 mmol/L JAS Comment:Testing performed by : [address] [address] BUN 15 6 - 25 mg/dL JAS Comment:Testing performed by : [address], [place]., [address] Creatinine 0.70 0.60 - 1.10 mg/dL JAS Comment:Testing performed by : [address] [address] Glucose 95 70 - 199 mg/dL JAS [...] was last revised 2022. Testing performed by: [address], [place]., [address] Calcium 9.5 8.5 - 10.3 mg/dL JAS Comment:Testing performed by : [facility], [address] [place] [address]., [address] Bilirubin, total 0.4 0.1 - 1.2 mg/dL JAS Comment:Testing performed by : [address] [address] Protein, pl 7.3 6.5 - 8.5 g/dL JAS Comment:Testing performed by : [address], [address] Albumin 4.4 3.5 - 5.0 g/dL JAS Comment:Testing performed by : [address], [place]., [address] Alk phos 84 40 - 130 Units/L JAS Comment:Testing performed by : [address] [address] ALT 28 7 - 45 Units/L JAS Comment:Testing performed by : [address] [address] AST 26 10 - 45 Units/L JAS Comment:Testing performed by : [address] [address] Blood 09/23/2024 4:05 PM CDT 09/23/2024 4:08 PM CDT us Linda PAEZ LAB BLOOD ORDERABLES Final Resul t Performing Organization Address City/State/[facility] Co de Phone Number JAS [address]37 [facility] Department of Laboratories [place], [place] [id number] * ECG 12 lead (09/23/2024 4:01 PM CDT) Ventricular Rate EKG/Min 62 BPM [facility] Atrial Rate 62 BPM [facility] ND-Interval (MSEC) 146 ms [facility] QRS-Interval (MSEC) 72 ms [facility] QT-Interval (MSEC) 464 ms [facility] QTc 470 ms [facility] P [place] 0 degrees [facility] R [place] 53 degrees [facility] T [place] 56 degrees [facility] Diagnosis Normal sinus rhythm Normal ECG No previous ECGs available Confirmed by SULTAN PETERSON M.D. ([id number]) on 09/23/2024 9:53:47 PM [facility] [employer] 09/23/2024 4:01 PM CDT 09/23/2024 9:53 PM CDT us Linda Loera [place] ECG ORDERABLES Final Result [facility] [facility] * CT Abdomen Pelvis W Contrast (09/02/2024 [...] Tacos Jack M.D. NS: NS Report ID: [id number] Reading Location: [id number] Procedure Note Tacos Jack MD - 09/02/2024 [...] Tacos Jack M.D. NS: NS Report ID: [id number] Reading Location: [place] [address] PROCEDURES Final Result [...] Yellow Yellow Comment:Testing performed by : [address] [address] Clarity, ur Clear Clear JAS Comment:Testing performed by : [address], [place]., [address] Specific gravity, ur 1.034(H) 1.003 - 1.030 JAS Comment:Testing performed by : [address] [address] pH, urine 5.5 JAS Comment: Interpretive Data U rine pH is affected by diet, medications, systemic acid-base disturbances, and renal tubular function. pH may affect urinary stone formation. For example, urine pH below 6.0 may help reduce the tendency for calcium phosphate stones and pH greater than 6.0 may reduce the tendency for uric acid stone formation. Source: [facility] [employer] Current Interpretive Data was last revised on 2017 Testing performed by: [address] [address] Protein, ur ql Trace(A) Negative JAS Comment:Testing performed by : [address] [address] Glucose, ur ql Negative Negative JAS Comment:Testing performed by : [address] [address] Ketones, ur 1+(A) Negative JAS Comment:Testing performed by : [address] [address] Bilirubin, ur Negative Negative JAS Comment:Testing performed by : [address] [address] Blood, ur 1+(A) Negative JAS Comment:Testing performed by : [address] [address] Urobilinogen, ur <2.0 <2.0 mg/dL JAS Comment:Testing performed by : [address] [address] Nitrite, ur Negative Negative AJS Comment:Testing performed by : [address] [address] Leukocyte esterase, ur 1+(A) Negative JAS Comment:Testing performed by : [address] [address] UA reflex comment Reflex to microscopic UA will be performed. JAS Comment:Testing performed by : [address] [address] Urine 09/02/2024 11:4 5 AM CDT 09/02/2024 11:55 AM CDT us Linda PAEZ LAB MICROBIOLOGY - GENERAL ORDER MARLEE Final Result Performing Organization Address City/[facility] Co de Phone Number JAS [facility]0 [facility] [place] [address] * (ABNORMAL) Urinalysis, microscopic only (09/02/2024 11:45 AM CDT) WBC, ur 0-5 0 - 5 /HPF Comment:Testing performed by : [address] [address] RBC, ur 6-10(A) 0 - 2 /HPF JAS Comment:Testing performed by : [address] [address] Epithelial cells, squamous, ur 21-50(A) 0 - 5 /HPF JAS Comment:Testing performed by : [address] [address] Mucous, ur Present(A) JAS Comment:Testing performed by : [address] [address] Culture Reflex Comment Reflex conditions for urine culture (WBC >10) not met. JAS Comment:Testing performed by : [address] [address] Urine 09/02/2024 11:4 5 AM CDT 09/02/2024 11:55 AM CDT us Linda PAEZ LAB URINE ORDERABLES Final Resul t Performing Organization Address City/[facility]/ZIP Co de Phone Number JAS 45[address] [facility] [place] [address] * eGFR (09/02/2024 11:41 AM CDT) eGFR [...] last reviewed 2021. Testing performed by: [address] [address] Blood 09/02/2024 11:4 1 AM CDT 09/02/2024 11:55 AM CDT us Linda PAEZ LAB BLOOD ORDERABLES Final Resul t JAS 45[address] [facility] [place] [address] * (ABNORMAL) Differential, auto (09/02/2024 11:41 AM CDT) Neutrophil abs 10.39(H) 1.50 - 6.50 K/cumm Comment:Testing performed by : [address] [address] Imm gran abs 0.05 0.00 - 0.10 K/cumm JAS Comment:Testing performed by : [address] [address] Lymphocyte abs 0.39(L) 0.80 - 3.30 K/cumm [facility] Comment:Testing performed by : [address] [address] Monocyte abs 0.68 0.20 - 0.80 K/cumm [facility] Comment:Testing performed by : [address], [place]., [address] Eosinophil abs 0.04 0.00 - 0.50 K/cumm [facility] Comment:Testing performed by : [address], [place]., [address] Basophil abs 0.03 0.00 - 0.10 K/cumm [facility] Comment:Testing performed by : [address] [address] Neutrophil pct 89.7 % [facility] Comment: Interpretive Data Percent cell count reference ranges are not reported, since discordance with absolute values may lead to misinterpretation of CBC data. Current Interpretive Data was last revised on 2017. Testing performed by: [address] [address] Imm gran pct 0.4 % [facility] Comment: Interpretive Data Percent cell count reference ranges are not reported, since discordance with absolute values may lead to misinterpretation of CBC data. Current Interpretive Data was last revised on 2017. Testing performed by: [address] [address] Lymphocyte pct 3.4 % [facility] Comment: Interpretive Data Percent cell count reference ranges are not reported, since discordance with absolute values may lead to misinterpretation of CBC data. Current Interpretive Data was last revised on 2017. Testing performed by: [address] [address] Monocyte pct 5.9 % [facility] Comment: Interpretive Data Percent cell count reference ranges are not reported, since discordance with absolute values may lead to misinterpretation of CBC data. Current Interpretive Data was last revised on 2017. Testing performed by: [address] [address] Eosinophil pct 0.3 % [facility] Comment: Interpretive Data Percent cell count reference ranges are not reported, since discordance with absolute values may lead to misinterpretation of CBC data. Current Interpretive Data was last revised on 2017. Testing performed by: [address] [address] Basophil pct 0.3 % [facility] Comment: Interpretive Data Percent cell count reference ranges are not reported, since discordance with absolute values may lead to misinterpretation of CBC data. Current Interpretive Data was last revised on 2017. Testing performed by: [address] [address] Blood 09/02/2024 11:4 1 AM CDT 09/02/2024 11:55 AM CDT us Linda PAEZ LAB BLOOD ORDERABLES Final Resul t JAS [address] [facility] [place] [address] * (ABNORMAL) CBC with auto differential (09/02/2024 11:41 AM CDT) WBC 11.58(H) 3.80 - 9.90 K/cumm Comment:Testing performed by : [address] [address] Hgb 15.0 11.9 - 15.5 g/dL JAS MAHMOOD Comment:Testing performed by : [address] [address] Hct 45.2 35.6 - 45.5 % [facility] MA[facility]MOOD Comment:Testing performed by : [address] [address] Plt 192 150 - 400 K/cumm JAS MAHMOOD Comment:Testing performed by : [address] [address] MPV 11.0 9.1 - 12.3 fL JAS MAHMOOD Comment:Testing performed by : [address] [address] RBC 5.18 3.90 - 5.20 M/cumm JAS MAHMOOD Comment:Testing performed by : [address] [address] MCV 87.3 81.3 - 96.4 fL JAS MAHMOOD Comment:Testing performed by : [address] [address] MCH 29.0 27.1 - 33.3 pg JAS MAHMOOD Comment:Testing performed by : [address] [address] MCHC 33.2 32.3 - 35.7 g/dL JAS MAHMOOD Comment:Testing performed by : [address], [address] RDW CV 12.4 11.1 - 14.9 % [facility] Comment:Testing performed by : [address], [address] RDW SD 39.7 35.7 - 48.1 fL JAS MAHMOOD Comment:Testing performed by : [address], [address] NRBC abs 0.00 0.00 - 0.01 K/cumm JAS Comment:Testing performed by : [address], [address] Blood 09/02/2024 11:4 1 AM CDT 09/02/2024 11:55 AM CDT us Linda Evaristo PA LAB BLOOD ORDERABLES Final Resul t Performing Organization Address [facility] de Phone Number [facility] [address] [facility] [place] [address] * Lipase (09/02/2024 11:41 AM CDT) Lipase 23 10 - 99 Units/L Comment:Testing performed by : [address], [address] Blood 09/02/2024 11:4 1 AM CDT 09/02/2024 11:55 AM CDT us Linda Evaristo PA LAB BLOOD ORDERABLES Final Resul t Performing Organization Address City/State/[facility] Co de Phone Number JAS [address] [facility] [place] [address] * Comprehensive metabolic panel (09/02/2024 11:41 AM CDT) Sodium 140 135 - 145 mmol/L Comment:Testing performed by : [facility], [address] [place] [address], [place]., [address] Potassium, pl 3.7 3.3 - 4.9 mmol/L JAS Comment:Testing performed by : [address], [place]., [address] Chloride 102 97 - 110 mmol/L JAS Comment:Testing performed by : [address], [place]., [address] CO2 27 22 - 32 mmol/L JAS Comment:Testing performed by : [address], [place]., [address] Anion gap 11 2 - 15 mmol/L JAS Comment:Testing performed by : [address] [address] BUN 19 6 - 25 mg/dL JAS Comment:Testing performed by : [address], [place]., [address] Creatinine 0.68 0.60 - 1.10 mg/dL JAS Comment:Testing performed by : [address], [place]., [address] Glucose 108 70 - 199 mg/dL JAS [...] was last revised 2022. Testing performed by: [address], [place]., [address] Calcium 10.1 8.5 - 10.3 mg/dL JAS Comment:Testing performed by : [facility], [address] [place] [address]., [address] Bilirubin, total 0.7 0.1 - 1.2 mg/dL JAS Comment:Testing performed by : [facility], [address] [place] [address]., [address] Protein, pl 8.1 6.5 - 8.5 g/dL JAS Comment:Testing performed by : [address], [address] Albumin 4.8 3.5 - 5.0 g/dL JAS Comment:Testing performed by : [address], [place]., [address] Alk phos 86 40 - 130 Units/L JAS Comment:Testing performed by : [address], [address] ALT 41 7 - 45 Units/L JAS Comment:Testing performed by : [address] [address] AST 23 10 - 45 Units/L JAS Comment:Testing performed by : [address] [address] Blood 09/02/2024 11:4 1 AM CDT 09/02/2024 11:55 AM CDT us Linda PAEZ LAB BLOOD ORDERABLES Final Resul t [facility] [address] [facility] [place] [address] from Last 3 Months Insurance [facility] CHOICE PLUS ANTHEM ACCESS CHOICE [facility] CHOICE PLUS ANTHEM ACCESS CHOICE Care Teams Meeting Planner Relationship Specialty Start Date End Date Tameka Gregory PA [address] [place] [address] PCP - General Physician Minute Clerk For Basic Traffic 09/02/24
--- OUTSIDE RECORDS SUMMARY | 2024-11-25 15:00 | XMS_ITS | Clinical Summary ---
Author Organization [facility] Address [address] [place] [address] Phone Care Team Providers Care Reports Analysis Manager Name Role Phone Tameka Gregory Primary Care Provider [phone] Allergies No known active allergies Medications amoxicillin (AMOXIL) 875 mg tablet Take 875 mg by mouth every 12 hours. Active FLUoxetine (PROzac) 40 mg capsule Take 40 mg by mouth daily. 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 Gender Identity Not on file Sexual Orientation Not on file Last Filed Vital Signs Vital Sign Reading Time Taken Comments Blood Pressure 120/75 03/31/2021 7:39 AM ASPHALT HEATER OPERATOR Pulse 54 03/31/2021 7:39 AM ASPHALT HEATER OPERATOR Temperature 36.2 C (97.1 F) 03/31/2021 7:39 AM ASPHALT HEATER OPERATOR Respiratory Rate 16 03/31/2021 7:39 AM ASPHALT HEATER OPERATOR Oxygen Saturation 97% 03/31/2021 7:39 AM ASPHALT HEATER OPERATOR Inhaled Oxygen Concentration - - Weight 94.5 kg (208 lb 6.4 oz) 03/30/2021 6:37 A M [employer] HEATER OPERATOR Height 167.6 cm (5' 6) 03/30/2021 4:01 AM ASPHALT HEATER OPERATOR Body Mass Index 33.64 03/30/2021 4:01 AM ASPHALT HEATER OPERATOR Plan of Treatment Health Maintenance Due Date Last Done Comments HPV VACCINES (1 - 3-dose series) 2004 DTAP/TDAP/TD VACCINES (1 - Tdap) 2008 HEPATITIS B VACCINES (1 of 3 - 19+ 3-dose series) 2008 HPV/Cotest (21-29) 2010 CERVICAL CANCER SCREENING 10/23/2019 HPV/Cotest (30-65) 10/23/2019 PAP SMEAR 10/23/2019 COVID-19 Vaccine (3 - 2023- season) 2023, 07/31/2020 INFLUENZA VACCINE (#1) 2024 01/08/2021 Insurance [facility] [place] CHO[employer] [employer] [place] RX [facility] [employer] RX [employer] (INTERNAL) [facility] RX [employer] (INTERNAL) [facility] Advance Directives For more information, please contact: [phone] * Full Code (Latest Code Status on File) Date Activated Date Inactivated Comments 03/29/2021 10:11 PM 03/31/2021 5:29 PM Care Teams Reports Analysis Manager Relationship Specialty Start Date End Date Tameka Gregory PA PCP - General Physician Fittings Finisher 03/29/21
--- OUTSIDE RECORDS SUMMARY | 2024-11-25 15:00 | XMS_ITS | Encounter Summary ---
Author Organization [facility] Healthcare Address [address] [place] [address] Care Team Providers Care Medical Van Driver Name Role Phone Tameka Gregory Primary Care Pr ovider Encounter Details Date Type Department Care Team (Latest Contact Info) Description 10/07/2024 Results Follow-Up [facility] Gastroenterology at [address] [place] [phone] Ti Lee MD [address] [place] [phone] Surgical pathology Social History Tobacco Use [...] on filedocumented in this encounter Care Teams Medical Van Driver Relationship Specialty Start Date End Date Tameka Gregory PA [address] [place] [address] PCP - General Physician [employer] Management System Operator 09/02/24 documented as of this encounter
== END 2024-11-25 14:43 | disposition home or self-care (01) ==
LOC: ANHIMG 14:45
PROVIDERS: PCP Physician Assistant; Visit Provider Physician Assistant
DX: R10.31 Right lower quadrant pain (principal)
CPT/HCPCS: 74177; Q9967